=== PATIENT | female | born 1995 | race Caucasian/White ===

== ENCOUNTER 2016-08-28 09:52 | Outpatient (CLI) | payer OTHER ==
--- NOTE | 2016-08-28 15:24 | Nuclear Medicine Report ---
EXAM: GASTRIC EMPTYING STUDY EXAM DATE: 08/28/2016 10:29 AM. CLINICAL HISTORY: NAUSEA. COMPARISON: None. TECHNIQUE: A standard meal was radiolabeled with 1 mCi Tc-99m sulfur colloid according to protocol. F ollowing the p.o. administration of this meal, the patient underwent multiple static images over the abdomen from the anterior and posterior projections, at approximately 0, 1, 2, 3, and 4 hours follow ing the ingestion of the meal. Region of interest analysis was employed, and percent emptied/percent remaining of the meal was calculated using both the geometric mean and decay corrections. FINDINGS: Calculations demonstrate: TIME (hours) Percent remaining. Normal values for percent remaining. 1 hour: 64% (30-90%) 2 hours: 42% (0-60%) 3 hours: 12% (030 percent) 4 hours: 0% (0-10%) IMPRESSION: Normal gastric emptying. [facility] Referring Provider Line: [phone] SITE ID: [id number]
== END 2016-08-28 09:53 | disposition home or self-care (01) ==
LOC: DI 09:52
PROVIDERS: ATTEND Physician Assistant Medical
DX: R11.0 Nausea (principal)
CPT/HCPCS: 78265; A9541

== ENCOUNTER 2016-09-11 09:25 | Outpatient (CLI) | payer OTHER ==
--- NOTE | 2016-09-11 13:24 | XRAY Report ---
ESOPHAGRAM: 09/11/2016 CLINICAL INDICATION: Nausea. FINDINGS: Esophagram was performed in the upright and prone positions. The esophagus is normal in c aliber and contractility. Trace gastroesophageal reflux was visualized during the course of the stud y. There is no evidence of ulceration, mass lesion, or stricturing. The hypopharynx appears unremar kable. A 13 mm barium pill passed through the esophagus and into the stomach. IMPRESSION: NORMAL ESOPHAGRAM. TRACE REFLUX. FLUOROSCOPY TIME: 2 minutes 27 seconds; 19 spot images obtained. JOB #: [id number] EXT JOB #:[id number]
== END 2016-09-11 09:26 | disposition home or self-care (01) ==
LOC: DI 09:25
PROVIDERS: ATTEND Physician Assistant Medical
DX: K21.9 Gastro-esophageal reflux disease without esophagitis (principal)
CPT/HCPCS: 74220

== ENCOUNTER 2016-11-10 15:48 | Outpatient (CLI) | payer MEDICAID, OTHER | END 2016-11-10 15:49 | disposition home or self-care (01) | LOC: LAB.R 15:48 | PROVIDERS: ATTEND Physician Assistant Medical | DX: J02.9 Acute pharyngitis, unspecified (principal) | CPT/HCPCS: 87070 ==

== ENCOUNTER 2017-07-16 14:41 | Outpatient (CLI) | payer MEDICAID ==
--- NOTE | 2017-07-16 18:22 | MRI Report ---
EXAM: MRI BRAIN WITHOUT CONTRAST EXAM DATE: 07/16/2017 03:56 PM. CLINICAL HISTORY: Memory loss. Fall during the latter part of 2017 with possible head trauma. COMPARISON: None. TECHNIQUE: Multiplanar, multisequence T1-weighted and fluid-sensitive MR sequences of the brain were performed. Sequences optimized for routine evaluation. Other: None. IV Contrast: None. FINDINGS: No cerebellar tonsillar ectopia is present. No abnormal diffusion signal or magnetic susceptibility is identified in the brain parenchyma. Ventricles and sulci are within normal limits. No extra-axial fluid collection is present. No abnormal T2 or FLAIR hyperintense signal is identified in the brain parenchyma. Expected flow voids are seen in the major intracranial vessels at the skull base. No abnormal T1 shortening is present in the brain parenchyma. An expected flow void is seen in the superior sagittal sinus and in each transverse sinus. No orbital mass is present. Scattered paranasal sinus mucosal thickening is present. IMPRESSION: 1.Normal brain MRI. [facility] Referring Provider Line: [phone] SITE ID: [id number]
== END 2017-07-16 14:42 | disposition home or self-care (01) ==
LOC: DI 14:41
PROVIDERS: ATTEND Family Medicine
DX: R41.3 Other amnesia (principal); R25.1 Tremor, unspecified
CPT/HCPCS: 70551

== ENCOUNTER 2018-03-27 12:31 | Emergency (ER) | payer MEDICAID ==
[2018-03-27] MEDS ORDERED: CLINDAMYCIN 150 MG CAPSULE PO STA (13:24)
[2018-03-27] MEDS ORDERED: LORazepam 2 MG/ML VIAL IM STA (13:24)
[2018-03-27] MEDS ORDERED: HYDROmorphone 2 MG/ML VIAL IM STA (13:24)
[2018-03-27] MEDS ORDERED: BUFFERED LIDOCAINE 10 ML SYRINGE SUBQ STA (13:24)
--- NOTE | 2018-03-27 13:28 | ED Physician Documentation ---
PD HPI HEENT - Stated complaint Stated Complaint: LOWER LF SIDE FACIAL PX - Chief complaint Chief Complaint: Heent - History obtained from History obtained from: Patient - History of Present Illness Timing - onset: Other (She has a known cavity in the left that needed to be addressed. Her dentist went on vacation. She has had progressive pain and swelling over the last week especially over the last couple of days with on and off subjective fevers.) Review of Systems Constitutional: reports: Fever, Chills Nose: denies: Rhinorrhea / runny nose, Congestion Throat: denies: Sore throat Cardiac: denies: Chest pain / pressure, Palpitations PD PAST MEDICAL HISTORY - Past Medical History Past Medical History: No - Past Surgical History Past Surgical History: Yes HEENT: Myringotomy (tubes) - Present Medications Home Medications: Ambulatory Orders Medication Instructions Recorded Confirmed Hydrocodone/Acetaminophen 1 - 2 each PO Q6H PRN #14 tablet 03/27/18 [Hydrocodon-Acetaminophen 5-325] Polyethylene Glycol 3350 [Miralax] 17 gm PO DAILY 03/27/18 03/27/18 RX: Clindamycin HCl [Clindamycin 300 mg PO Q6H #40 capsule 03/27/18 300MG CAP] diazePAM [Valium] 10 mg PO TID PRN #2 tablet 03/27/18 - Allergies Allergies/Adverse Reactions: Allergies Allergy/AdvReac Type Severity Reaction Status Date / Time No Known Drug Allergies Allergy Verified 03/27/18 12:40 - Social History Does the pt smoke?: No Smoking Status: Never smoker Does the pt drink ETOH?: No Does the pt have substance abuse?: No - Immunizations Immunizations are current?: Yes PD ED PE NORMAL - Vitals Vital signs reviewed: Yes - General General: Alert and oriented X 3, No acute distress, Other (She is quite anxious and actually has difficulty with me performing an intraoral examination on initial Exam due to anxiety) - HEENT HEENT: Other (She obviously has dental abscess relative to the left mandibular premolar with facial swelling. She might have some trismus but again due to anxiety on initial Evaluation) - Neck Neck: Supple, no meningeal sign, No bony TTP - Neuro Neuro: Alert and oriented X 3, Normal speech Results - Vitals Vitals: Vital Signs - 24 hr 03/27/18 03/27/18 12:37 14:19 Temperature 36.8 C Heart Rate 98 95 Respiratory 18 18 Rate Blood Pressure 141/91 H 150/95 H O2 Saturation 98 99 Oxygen O2 Source Room air Procedures - Regional nerve block Nerve block site: Inferior alveolar Right / left: Left Nerve block anesthesia: Lidocaine 1% Nerve block aftercare: Excellent anesthesia PD MEDICAL DECISION MAKING - ED course ED course: This is a 22-year-old woman who has a dental abscess. I cannot tell on initial evaluation if it needs to be incised and drained because she is very anxious. She is administered after discussion IM Ativan and Dilaudid in the hopes that we can perform a better exam and potentially do an I&D if necessary. After the administration of the above medication she was reexamined. She had no trismus. Although there was fullness down on the gumline I really did not feel a fluctuant area to incise and drain. A inferior alveolar block was still done for pain control. Departure - Departure Disposition: 01 Home, Self Care Clinical Impression: Dental abscess Condition: Good Record reviewed to determine appropriate education?: Yes Instructions: ED Abscess Dental Prescriptions: RX: Clindamycin HCl [Clindamycin 300MG CAP] 300 mg PO Q6H #40 capsule diazePAM [Valium] 10 mg PO TID PRN #2 tablet PRN Reason: Anxiety Hydrocodone/Acetaminophen [Hydrocodon-Acetaminophen 5-325] 1 - 2 each PO Q6H PRN #14 tablet PRN Reason: pain Comments: As discussed, it does not seem like he have an abscess that is ready to be cut at this point, but over the next couple of days it may worsen despite the antibiotics. If it does you can take the Valium just prior to arrival for your anxiety so that the physician at that point can examine you more easily and potentially do a procedure if necessary. You still need to follow-up with your dentist as soon as possible, given that your dentist is gone until next month consider finding another dentist to substitute. Do not drink or drive while taking narcotic pain medication. Note that many narcotic pain relievers also contain Tylenol/acetaminophen. Please ensure that your total dose of acetaminophen from all sources does not exceed 3 g (3000 mg) per day. You may get constipated while on this medication. Take a stool softener such as Colace twice a day while you are on it. Also add an [id number]-[id number] laxative such as senna or MiraLAX on any day that you do not have a bowel movement. If you received a narcotic pain medication or sedative while in the emergency department, do not drive for the next 24 hours. Your blood pressure was elevated today on check into the emergency department. This does not mean that you have hypertension, it is a common phenomenon to come to the emergency department and have elevated blood pressure. I recommend that you see your primary care physician within the week to have it rechecked when you are feeling better. Discharge Date/Time: 03/27/18 14:24
[2018-03-27 14:20] VITALS: BP 150/95
== END 2018-03-27 14:24 | disposition home or self-care (01) ==
LOC: ED 12:31
DX: K04.7 Periapical abscess without sinus (principal); K02.9 Dental caries, unspecified; F41.9 Anxiety disorder, unspecified; R03.0 Elevated blood-pressure reading, without diagnosis of hypertension
CPT/HCPCS: 64400; 96372; 99283; A9270; J1170; J2060

== ENCOUNTER 2018-07-20 04:57 | Emergency (ER) | payer MEDICAID ==
--- NOTE | 2018-07-20 05:10 | ED Physician Documentation ---
PD HPI ABD PAIN - Stated complaint Stated Complaint: ABD PX - Chief complaint Chief Complaint: Abd Pain - History obtained from History obtained from: Patient - History of Present Illness Timing - onset: Enter time (23:00) Timing - duration: Hours Timing - details: Abrupt onset, Constant, Waxing and waning Pain level now: 4 Quality: Pain Location: Periumbilical Radiation: Right flank Improved by: Other (nothing) Worsened by: Moving Associated symptoms: Nausea. No: Fever, Vomiting, Diarrhea, Constipation Similar symptoms before: Has not had sx before Recently seen: Not recently seen Review of Systems Constitutional: denies: Fever Cardiac: reports: Reviewed and negative Respiratory: reports: Reviewed and negative GI: reports: Abdominal Pain, Nausea. denies: Vomiting, Constipation, Diarrhea : denies: Dysuria, Frequency, Now EGA PD PAST MEDICAL HISTORY - Past Medical History Past Medical History: Yes Other Past Medical History: PTSD - Past Surgical History Past Surgical History: Yes HEENT: Myringotomy (tubes) - Present Medications Home Medications: Ambulatory Orders Medication Instructions Recorded Confirmed Polyethylene Glycol 3350 [Miralax] 17 gm PO DAILY 03/27/18 03/27/18 diazePAM [Valium] 10 mg PO TID PRN #2 tablet 03/27/18 Ondansetron Odt [Zofran] 4 mg TL Q6H PRN #14 tablet 07/20/18 Tramadol HCl 50 mg PO Q6HR PRN #20 tablet 07/20/18 - Allergies Allergies/Adverse Reactions: Allergies Allergy/AdvReac Type Severity Reaction Status Date / Time No Known Drug Allergies Allergy Verified 03/28/18 10:36 - Social History Does the pt smoke?: No Smoking Status: Never smoker Does the pt drink ETOH?: No Does the pt have substance abuse?: No - Immunizations Immunizations are current?: Yes PD ED PE NORMAL - Vitals Vital signs reviewed: Yes - General General: Alert and oriented X 3, No acute distress, Well developed/nourished - Cardiac Cardiac: RRR, No murmur - Respiratory Respiratory: No respiratory distress, Clear bilaterally - Abdomen Abdomen: Normal bowel sounds, Soft, Non distended, Other (mild epigastric and RUQ tenderness without rebound or guarding) - Back Back: No CVA TTP - Derm Derm: Normal color, Warm and dry, No rash Results - Vitals Vitals: Vital Signs - 24 hr 04/10/19 04/10/19 05:03 08:03 Temperature 36.2 C L Heart Rate 97 78 Respiratory 18 14 Rate Blood Pressure 154/93 H 139/88 H O2 Saturation 98 98 Oxygen O2 Source Room air - Labs Labs: Laboratory Tests 07/20/18 07/20/18 07/20/18 05:00 05:50 05:50 WBC 10.8 RBC 4.29 Hgb 12.6 Hct 37.2 MCV 86.7 MCH 29.3 MCHC 33.8 RDW 13.1 Plt Count 267 MPV 7.6 L Neut # (Auto) 8.2 H Lymph # (Auto) 1.8 [place] # (Auto) 0.6 Eos # (Auto) 0.1 Baso # (Auto) 0.0 Absolute Nucleated RBC 0.00 Nucleated RBC % 0.0 Sodium 135 Potassium 3.8 Chloride 103 Carbon Dioxide 24 Anion Gap 8.0 BUN 10 Creatinine 0.5 Estimated GFR (MDRD) 156 Glucose 107 H Calcium 8.9 Total Bilirubin 0.5 AST 19 ALT 17 Alkaline Phosphatase 60 Total Protein 7.3 Albumin 4.0 Globulin 3.3 Albumin/Globulin Ratio 1.2 Lipase 28 Urine Color STRAW Urine Clarity HAZY Urine pH 7.0 Ur Specific [place] <=1.005 Urine Protein NEGATIVE Urine Glucose (UA) NEGATIVE Urine Ketones NEGATIVE Urine Occult Blood TRACE-LYSE Urine Nitrite NEGATIVE Urine Bilirubin NEGATIVE Urine Urobilinogen 0.2 (NORMAL) Ur Leukocyte Esterase TRACE H Urine RBC None Seen Urine WBC 0-3 Ur Squamous Epith Cells MOD Squamous H Urine Bacteria Rare Ur Microscopic Review INDICATED Urine Culture Comments NOT INDICATED Urine HCG, Qual NEGATIVE - Rads (name of study) RUQ US Radiology: Prelim report reviewed, See rad report PD MEDICAL DECISION MAKING - ED course Complexity details: reviewed results, re-evaluated patient, considered differential, d/w patient Departure - Departure Disposition: 01 Home, Self Care Clinical Impression: Biliary colic Condition: Good Instructions: ED Gallstone W Biliary Colic Follow-Up: Brendon Fontenot MD [Provider Admit Priv/Credential] - Prescriptions: Tramadol HCl 50 mg PO Q6HR PRN #20 tablet PRN Reason: Pain Ondansetron Odt [Zofran] 4 mg TL Q6H PRN #14 tablet PRN Reason: Nausea / Vomiting
[2018-07-20] MEDS ORDERED: KETOROLAC 30 MG/ML VIAL IVP STA (05:29)
[2018-07-20] MEDS ORDERED: ONDANSETRON 4 MG/2 ML VIAL IVP STA (05:30)
[2018-07-20 06:05] LABS: BASOPHILS % (AUTO) 0.4 %; EOSINOPHILS # (AUTO) 0.1 10^3/uL (0.0-0.7); EOSINOPHILS % (AUTO) 0.8 %; HGB - HEMOGLOBIN 12.6 g/dL (12.0-16.0); LYMPHOCYTES # (AUTO) 1.8 10^3/uL (1.5-3.5); LYMPHOCYTES % (AUTO) 16.9 %; MEAN CORPUSCULAR HEMOGLOBIN 29.3 pg (27.0-31.0); MEAN CORPUSCULAR HGB CONC 33.8 g/dL (32.0-36.0); MEAN CORPUSCULAR VOLUME 86.7 fL (81.0-99.0); MEAN PLATELET VOLUME 7.6 fL (7.9-10.8); MONOCYTES # (AUTO) 0.6 10^3/uL (0.0-1.0); MONOCYTES % (AUTO) 5.6 %; NEUTROPHILS # (AUTO) 8.2 10^3/uL (1.5-6.6); NEUTROPHILS % (AUTO) 76.3 %; PLT - PLATELET COUNT 267 10^3/uL (130-450); RED BLOOD COUNT 4.29 10^6/uL (4.20-5.40); RED CELL DISTRIBUTION WIDTH 13.1 % (12.0-15.0); WHITE BLOOD COUNT 10.8 x10^3/uL (4.8-10.8)
[2018-07-20 06:11] LABS: ALBUMIN/GLOBULIN RATIO 1.2 (1.0-2.2); BILIRUBIN,TOTAL 0.5 mg/dL (0.2-1.0); CALCIUM 8.9 mg/dL (8.5-10.3); CREATININE 0.5 mg/dL (0.4-1.0); TOTAL PROTEIN 7.3 g/dL (6.7-8.2)
[2018-07-20 06:12] LABS: BILIRUBIN,URINE NEGATIVE (NEGATIVE); GLUCOSE, URINE (UA) NEGATIVE (NEGATIVE); KETONES,URINE (UA) NEGATIVE (NEGATIVE); LEUKOCYTE ESTERASE, URINE TRACE (NEGATIVE); NITRITE,URINE NEGATIVE (NEGATIVE); OCCULT BLOOD,URINE TRACE-LYSE (NEGATIVE); PROTEIN,URINE NEGATIVE (NEGATIVE); UROBILINOGEN,URINE 0.2 (NORMAL) E.U./dL (NORMAL)
[2018-07-20 06:13] LABS: CLARITY,URINE HAZY (CLEAR)
[2018-07-20 06:14] LABS: HCG UR QUAL NEGATIVE
[2018-07-20 06:22] LABS: BACTERIA,URINE Rare /HPF (None Seen); RBC,URINE None Seen /HPF (0-5); SQUAMOUS EPITHELIAL CELL,UR MOD Squamous (<= Few)
--- NOTE | 2018-07-20 07:56 | Ultrasound Report ---
Reason: RUQ pain Procedure Date: 07/20/2018 Accession Number: [id number] / [id number] Procedure: US - Abdomen Limited CPT Code: FULL RESULT: EXAM: ABDOMEN ULTRASOUND LIMITED, RUQ EXAM DATE: 07/20/2018 07:25 AM. CLINICAL HISTORY: RUQ pain. COMPARISON: None. TECHNIQUE: Real-time scanning was performed with static images obtained. FINDINGS: Liver: Diffusely echogenic hepatic parenchyma. No hepatic lesions. No intrahepatic ductal dilatation. The liver is not enlarged, 16.8 cm. Main portal vein flow: Hepatopetal. Gallbladder: Multiple gallstones are seen throughout the gallbladder and shadowing posteriorly. No gallbladder wall thickening. Per emblem fuser tender, the patient is not tender over the gallbladder. Biliary System: CBD measures 4-5 mm. No intrahepatic or extrahepatic ductal dilatation. Other: Right kidney is normal in contour and echotexture and measures 10.8 cm. No hydronephrosis. IMPRESSION: 1. Fatty liver. 2. Cholelithiasis. No sonographic evidence of cholecystitis. 3. No biliary ductal dilatation. [facility]
[2018-07-20 08:03] VITALS: BP 139/88
== END 2018-07-20 08:30 | disposition home or self-care (01) ==
LOC: ED 04:57
DX: K80.50 Calculus of bile duct without cholangitis or cholecystitis without obstruction (principal)
CPT/HCPCS: 36415; 76705; 80053; 81001; 81003; 81025; 83690; 85025; 87086; 96374; 99283; 99284

== ENCOUNTER 2018-07-23 16:53 | Emergency (ER) | payer MEDICAID ==
[2018-07-23 16:59] VITALS: BP 162/91
--- NOTE | 2018-07-23 17:10 | ED Physician Documentation ---
History of Present Illness - Stated complaint Stated Complaint: FEVER/NAUSEA/FOGGY - Chief complaint Chief Complaint: Fever - History obtained from History obtained from: Patient - History of Present Illness Timing: Other (She was seen here a few nights ago for abdominal pain, diagnosed with gallstones. That is better now but subsequently developed a low-grade fever with T-max of 99. Nothing over 100. She feels kind of foggy and out of it. She denies runny nose, sore throat, current abdominal pain, nausea, acute changes in her bowels, rash, recent travel.) Review of Systems Constitutional: reports: Fever, Fatigue Ears: denies: Ear pain Nose: denies: Rhinorrhea / runny nose, Congestion Throat: denies: Sore throat Respiratory: denies: Cough GI: reports: Diarrhea (Chronic). denies: Abdominal Pain, Nausea, Vomiting PD PAST MEDICAL HISTORY - Past Surgical History Past Surgical History: Yes HEENT: Myringotomy (tubes) - Present Medications Home Medications: Ambulatory Orders Medication Instructions Recorded Confirmed Polyethylene Glycol 3350 [Miralax] 17 gm PO DAILY 03/27/18 07/23/18 Ondansetron Odt [Zofran] 4 mg TL Q6H PRN #14 tablet 07/20/18 07/23/18 Tramadol HCl 50 mg PO Q6HR PRN #20 tablet 07/20/18 07/23/18 Prazosin [Minipress] 1 mg PO QPM 07/23/18 07/23/18 Sulfamethoxazole/Trimethoprim 1 each PO BID #14 tablet 07/23/18 [Sulfamethoxazole-Tmp Ds Tablet] - Allergies Allergies/Adverse Reactions: Allergies Allergy/AdvReac Type Severity Reaction Status Date / Time No Known Drug Allergies Allergy Verified 07/23/18 16:59 - Social History Does the pt smoke?: No Smoking Status: Never smoker Does the pt drink ETOH?: No Does the pt have substance abuse?: No - Immunizations Immunizations are current?: Yes PD ED PE NORMAL - Vitals Vital signs reviewed: Yes - General General: Alert and oriented X 3, No acute distress - HEENT HEENT: PERRL, EOMI, Ears normal, Pharynx benign - Neck Neck: Supple, no meningeal sign, No bony TTP, No adenopathy - Cardiac Cardiac: RRR, No murmur - Respiratory Respiratory: No respiratory distress, Clear bilaterally - Abdomen Abdomen: Non tender - Derm Derm: No rash - Neuro Neuro: Alert and oriented X 3, Normal speech Results - Vitals Vitals: Vital Signs - 24 hr 07/23/18 16:55 Temperature 37.6 C H Heart Rate 85 Respiratory 20 Rate Blood Pressure 162/91 H O2 Saturation 98 Oxygen O2 Source Room air - Labs Labs: Laboratory Tests 07/23/18 07/23/18 07/23/18 17:17 17:25 17:25 WBC 10.9 H RBC 4.56 Hgb 13.2 Hct 39.3 MCV 86.1 MCH 28.9 MCHC 33.6 RDW 13.1 Plt Count 301 MPV 7.9 Neut # (Auto) 7.4 H Lymph # (Auto) 2.7 [place] # (Auto) 0.6 Eos # (Auto) 0.1 Baso # (Auto) 0.0 Absolute Nucleated RBC 0.00 Nucleated RBC % 0.0 Sodium 138 Potassium 4.1 Chloride 104 Carbon Dioxide 24 Anion Gap 10.0 BUN 13 Creatinine 0.5 Estimated GFR (MDRD) 156 Glucose 98 Calcium 9.8 Total Bilirubin 0.4 AST 21 ALT 17 Alkaline Phosphatase 65 Total Protein 7.8 Albumin 4.4 Globulin 3.4 Albumin/Globulin Ratio 1.3 Lipase 26 Urine Color YELLOW Urine Clarity CLEAR Urine pH 8.0 H Ur Specific [place] 1.010 Urine Protein NEGATIVE Urine Glucose (UA) NEGATIVE Urine Ketones NEGATIVE Urine Occult Blood NEGATIVE Urine Nitrite NEGATIVE Urine Bilirubin NEGATIVE Urine Urobilinogen 0.2 (NORMAL) Ur Leukocyte Esterase MODERATE H Urine RBC 0-5 Urine WBC 11-25 H Ur Squamous Epith Cells MANY Squamous H Urine Bacteria Many H Ur Microscopic Review INDICATED Urine Culture Comments NOT INDICATED Urine HCG, Qual NEGATIVE PD MEDICAL DECISION MAKING - ED course ED course: 22-year-old woman presents with low-grade fever and generalized symptoms. She had abdominal pain the other day but that is resolved, she had a soft positive but contaminated UA the other day much more positive but still contaminated today. That is the only source identified. We will culture it and place her on Bactrim. Departure - Departure Disposition: 01 Home, Self Care Clinical Impression: Febrile disorder UTI (urinary tract infection) Qualifiers: Urinary tract infection type: site unspecified Hematuria presence: without hematuria Qualified Code(s): N39.0 - Urinary tract infection, site not specified Condition: Good Record reviewed to determine appropriate education?: Yes Instructions: Pyelonephritis Dc Prescriptions: Sulfamethoxazole/Trimethoprim [Sulfamethoxazole-Tmp Ds Tablet] 1 each PO BID #14 tablet Comments: We will culture your urine, the results should be done in 48-72 hours. If an antibiotic change is necessary we will call you. Return if worse in the meantime, especially if you develop increasing flank pain, fevers, or cannot keep down the medication.
[2018-07-23 17:40] LABS: BASOPHILS % (AUTO) 0.4 %; EOSINOPHILS # (AUTO) 0.1 10^3/uL (0.0-0.7); EOSINOPHILS % (AUTO) 1.1 %; HGB - HEMOGLOBIN 13.2 g/dL (12.0-16.0); LYMPHOCYTES # (AUTO) 2.7 10^3/uL (1.5-3.5); LYMPHOCYTES % (AUTO) 24.9 %; MEAN CORPUSCULAR HEMOGLOBIN 28.9 pg (27.0-31.0); MEAN CORPUSCULAR HGB CONC 33.6 g/dL (32.0-36.0); MEAN CORPUSCULAR VOLUME 86.1 fL (81.0-99.0); MEAN PLATELET VOLUME 7.9 fL (7.9-10.8); MONOCYTES # (AUTO) 0.6 10^3/uL (0.0-1.0); MONOCYTES % (AUTO) 5.5 %; NEUTROPHILS # (AUTO) 7.4 10^3/uL (1.5-6.6); NEUTROPHILS % (AUTO) 68.1 %; PLT - PLATELET COUNT 301 10^3/uL (130-450); RED BLOOD COUNT 4.56 10^6/uL (4.20-5.40); RED CELL DISTRIBUTION WIDTH 13.1 % (12.0-15.0); WHITE BLOOD COUNT 10.9 x10^3/uL (4.8-10.8)
[2018-07-23 17:41] LABS: BILIRUBIN,URINE NEGATIVE (NEGATIVE); GLUCOSE, URINE (UA) NEGATIVE (NEGATIVE); KETONES,URINE (UA) NEGATIVE (NEGATIVE); LEUKOCYTE ESTERASE, URINE MODERATE (NEGATIVE); NITRITE,URINE NEGATIVE (NEGATIVE); OCCULT BLOOD,URINE NEGATIVE (NEGATIVE); PROTEIN,URINE NEGATIVE (NEGATIVE); UROBILINOGEN,URINE 0.2 (NORMAL) E.U./dL (NORMAL)
[2018-07-23 17:47] LABS: CLARITY,URINE CLEAR (CLEAR); HCG UR QUAL NEGATIVE
[2018-07-23 17:48] LABS: BACTERIA,URINE Many /HPF (None Seen); RBC,URINE 0-5 /HPF (0-5); SQUAMOUS EPITHELIAL CELL,UR MANY Squamous (<= Few)
[2018-07-23 17:57] LABS: ALBUMIN 4.4 g/dL (3.2-5.5); ALBUMIN/GLOBULIN RATIO 1.3 (1.0-2.2); BILIRUBIN,TOTAL 0.4 mg/dL (0.2-1.0); CALCIUM 9.8 mg/dL (8.5-10.3); CREATININE 0.5 mg/dL (0.4-1.0); TOTAL PROTEIN 7.8 g/dL (6.7-8.2)
[2018-07-23] MEDS ORDERED: SULFAMETH/TRIMETH DS 800/160 MG TABLET PO STA (18:02)
== END 2018-07-23 18:12 | disposition home or self-care (01) ==
LOC: ED 16:53
DX: R50.9 Fever, unspecified (principal); N39.0 Urinary tract infection, site not specified
CPT/HCPCS: 36415; 80053; 81001; 81025; 83690; 85025; 87077; 87086; 87181; 99283; A9270; 81003

== ENCOUNTER 2018-08-29 06:13 | Day surgery (SDC) | payer MEDICAID ==
[2018-08-29 06:41] LABS: HCG UR QUAL NEGATIVE
[2018-08-29] MEDS ORDERED: LACTATED RINGERS 1,000 ML IV ONE ×2 (07:02→08:55)
[2018-08-29] MEDS ORDERED: ceFAZolin 1 GM VIAL ONE (07:08)
[2018-08-29] MEDS ORDERED: BUPIVACAINE 0.5%-EPI 1:200000 PF 30 ML VIAL ONE (07:08)
--- NOTE | 2018-08-29 07:16 | ANESTHESIA ---
Pre-Anesthesia VS, & Labs - Diagnosis symptomatic cholelithiasis - Procedure Lap [place] Vital Signs: Temp Pulse Resp BP Pulse Ox 37 C 88 20 129/79 98 08/29/18 06:30 08/29/18 06:30 08/29/18 06:30 08/29/18 06:30 08/29/18 06:30 Height 5 ft 1 in Weight (kg) 90.8 kg Body Mass Index 37.8 - NPO >8 hours - Is Patient ?: No Home Medications and Allergies Home Medications: Ambulatory Orders Sertraline HCl 50 mg PO DAILY 08/24/18 Active Medications Cefazolin Sodium 2 gm/ Sodium (Chloride) 100 mls @ 200 mls/hr IV ONCE ONE Stop: 08/29/18 08:29 Prazosin [Minipress] 2 mg PO QPM 07/23/18 Sertraline HCl 50 mg PO DAILY 08/24/18 Allergies/Adverse Reactions: Allergies Allergy/AdvReac Type Severity Reaction Status Date / Time dairy products AdvReac bloating, Uncoded 08/24/18 09:38 constipation enriched flour products AdvReac Nausea Uncoded 08/24/18 09:38 Anes History & Medical History - Anesthetic History Anesthesia Complications: reports: Slow wake-up - Medical History Cardiovascular: reports: None Pulmonary: reports: None Gastrointestinal: reports: Cholelithiasis Urinary: reports: None Neuro: reports: None Musculoskeletal: reports: None Endocrine/Autoimmune: reports: None Blood Disorders: reports: None Skin: reports: Rosacea Smoking Status: Never smoker Psychosocial: reports: Depression, Other (hx of ptsd) - Surgical History General: Colonoscopy Eyes Ears Nose Throat (EENT): Myringotomy (tubes), Other Exam General: Alert, Oriented x3, Cooperative, No acute distress Mouth Openin Fingerbreadth Neck Mobility: Normal Mallampati classification: I Thyromental Distance: 4-6 cm Respiratory: Lungs clear, Normal breath sounds, No respiratory distress, No accessory muscle use Cardiovascular: Regular rate, Normal S1, Normal S2, No murmurs Mental/Cognitive Status: Alert/Oriented X3, Normal for patient Plan Anesthesia Type: General Consent for Procedure(s) Verified and Reviewed: Yes Code Status: Attempt Resuscitation ASA classification: 2-Mild systemic disease Is this case an emergency?: No
[2018-08-29] MEDS ORDERED: PROPOFOL 200 MG/20 ML VIAL IVP ONE (08:00)
[2018-08-29] MEDS ORDERED: MIDAZOLAM 2 MG/2 ML VIAL IVP ONE (08:00)
[2018-08-29] MEDS ORDERED: ePHEDrine 50 MG/ML VIAL IVP ONE (08:00)
[2018-08-29] MEDS ORDERED: ceFAZolin 2 GM in SODIUM CHLORIDE 0.9% 100ML 100 ML IV ONE (08:00)
[2018-08-29] MEDS ORDERED: fentaNYL 250 MCG/5 ML VIAL IVP ONE (08:00)
[2018-08-29] MEDS ORDERED: ACETAMINOPHEN 1,000 MG/100 ML 100 ML IV ONE ×2 (08:00)
[2018-08-29] MEDS ORDERED: NEOSTIGMINE 1 MG/1 ML 10 ML MDV IVP ONE ×2 (08:00)
[2018-08-29] MEDS ORDERED: ROCURONIUM 50 MG/5 ML VIAL IVP ONE (08:00)
[2018-08-29] MEDS ORDERED: LIDOCAINE-MPF 2% 5 ML VIAL IM ONE (08:00)
[2018-08-29] MEDS ORDERED: DEXAMETHASONE 4 MG/ML VIAL IVP ONE (08:00)
[2018-08-29] MEDS ORDERED: GLYCOPYRROLATE 1 MG/5 ML VIAL SUBQ ONE (08:00)
[2018-08-29] MEDS ORDERED: ONDANSETRON 4 MG/2 ML VIAL IVP ONE (08:00)
[2018-08-29] MEDS ORDERED: BUPIVACAINE 0.5%-EPI 1:200000 PF 30 ML VIAL SUBQ ONE ×2 (08:21)
[2018-08-29] MEDS ORDERED: ACETAMINOPHEN 325 MG TABLET PO PRN (09:03)
[2018-08-29] MEDS ORDERED: IBUPROFEN 600 MG TABLET PO PRN (09:03)
[2018-08-29] MEDS ORDERED: oxyCODONE 5 MG TABLET PO PRN (09:03)
[2018-08-29] MEDS ORDERED: ONDANSETRON 4 MG/2 ML VIAL IVP PRN (09:03)
[2018-08-29] MEDS: HYDROmorphone 1 MG/ML CARPUJECT ONE ×4 (09:21→10:00)
[2018-08-29] MEDS ORDERED: ONDANSETRON 4 MG/2 ML VIAL ONE (09:36)
[2018-08-29] MEDS ORDERED: oxyCODONE 5 MG TABLET ONE (12:08)
[2018-08-29 14:05] VITALS: BP 123/77
== END 2018-08-29 06:14 | disposition home or self-care (01) ==
LOC: SDS 06:13
PROVIDERS: ATTEND Internal Medicine Gastroenterology
PROC: 0FT44ZZ Resection of Gallbladder, Percutaneous Endoscopic Approach (ICD-10-PCS; principal; 2018-08-29 07:30)
DX: K80.20 Calculus of gallbladder without cholecystitis without obstruction (principal); K90.49 Malabsorption due to intolerance, not elsewhere classified; E66.9 Obesity, unspecified; R63.4 Abnormal weight loss; K21.9 Gastro-esophageal reflux disease without esophagitis; F32.9 Major depressive disorder, single episode, unspecified; Z83.79 Family history of other diseases of the digestive system; Z86.010 Personal history of colon polyps; Z68.37 Body mass index [BMI] 37.0-37.9, adult; Z79.899 Other long term (current) drug therapy
CPT/HCPCS: 47562; 81025; A9270; J0131; J1170; J3010; J7120

== ENCOUNTER 2018-09-30 09:35 | Outpatient (CLI) | payer MEDICAID ==
[2018-09-30 10:23] LABS: ALBUMIN 4.1 g/dL (3.2-5.5); ALBUMIN/GLOBULIN RATIO 1.3 (1.0-2.2); BILIRUBIN,TOTAL 0.4 mg/dL (0.2-1.0); CALCIUM 9.4 mg/dL (8.5-10.3); CREATININE 0.5 mg/dL (0.4-1.0); TOTAL PROTEIN 7.3 g/dL (6.7-8.2)
[2018-09-30 10:28] LABS: BASOPHILS % (AUTO) 0.3 %; EOSINOPHILS # (AUTO) 0.2 10^3/uL (0.0-0.7); HGB - HEMOGLOBIN 12.7 g/dL (12.0-16.0); LYMPHOCYTES # (AUTO) 2.2 10^3/uL (1.5-3.5); LYMPHOCYTES % (AUTO) 27.4 %; MEAN CORPUSCULAR HEMOGLOBIN 28.2 pg (27.0-31.0); MEAN CORPUSCULAR HGB CONC 31.9 g/dL (32.0-36.0); MEAN CORPUSCULAR VOLUME 88.4 fL (81.0-99.0); MEAN PLATELET VOLUME 9.3 fL (7.9-10.8); MONOCYTES # (AUTO) 0.5 10^3/uL (0.0-1.0); MONOCYTES % (AUTO) 5.9 %; NEUTROPHILS # (AUTO) 5.1 10^3/uL (1.5-6.6); NEUTROPHILS % (AUTO) 63.8 %; PLT - PLATELET COUNT 280 10^3/uL (130-450); RED CELL DISTRIBUTION WIDTH 13.2 % (12.0-15.0)
== END 2018-09-30 09:36 | disposition home or self-care (01) ==
LOC: LAB 09:35
PROVIDERS: ATTEND Registered Nurse
DX: Z79.899 Other long term (current) drug therapy (principal)
CPT/HCPCS: 36415; 80053; 82306; 84443; 85025

== ENCOUNTER 2018-10-15 20:02 | Emergency (ER) | payer MEDICAID ==
--- NOTE | 2018-10-15 20:08 | ED Physician Documentation ---
PD HPI MHE - Stated complaint Stated Complaint: MHE - History obtained from History obtained from: Patient - History of Present Illness Primary symptom: Suicidal ideation Timing - onset: Enter time (16:00), Today Pain level max: 0 Pain level now: 0 Recently seen: Not recently seen - Additional information Additional information: c/o suicidal ideation. Approximately 4 PM today, it became overwhelming and patient no longer felt safe where he is staying due to suicidal thoughts (staying at [facility]). Patient also c/o feeling depersonalization, as if he is not actually present; he likens this to a "simulation in a video game". Patient identifies as a male. He says he was inpatient for mental health reasons in [place] approximately 4 years ago, length of stay was approximately 2 weeks. He denies missing recent doses of his prescription medications and denies taking more than prescribed amount. Review of Systems Cardiac: reports: Reviewed and negative Respiratory: reports: Reviewed and negative GI: reports: Reviewed and negative Psychiatric: reports: Depressed, Suicidal, Other (depersonalization). denies: Homicidal, Hallucinations, Delusions PD PAST MEDICAL HISTORY - Past Medical History Cardiovascular: None Respiratory: None Neuro: None Endocrine/Autoimmune: None GI: Cholelithiasis : None HEENT: Chronic vision loss Psych: Anxiety, Panic attacks, Post traumatic stress disorder Musculoskeletal: None Derm: Rosacea - Past Surgical History Past Surgical History: Yes General: Colonoscopy HEENT: Myringotomy (tubes), Other - Present Medications Home Medications: Ambulatory Orders Medication Instructions Recorded Confirmed Ondansetron Odt [Zofran] 4 mg TL Q6H PRN #14 tablet 07/20/18 08/29/18 Prazosin [Minipress] 2 mg PO QPM 07/23/18 08/29/18 Sertraline HCl 50 mg PO DAILY 08/24/18 08/29/18 Acetaminophen [Tylenol] 650 mg PO Q6H PRN #50 tablet 08/29/18 Ibuprofen [Advil] 600 mg PO Q6H PRN #50 tablet 08/29/18 oxyCODONE [Roxicodone] 5 mg PO Q6H PRN #10 tablet 08/29/18 OLANZapine [Zyprexa] 5 mg PO BID #30 tablet 10/16/18 - Allergies Allergies/Adverse Reactions: Allergies Allergy/AdvReac Type Severity Reaction Status Date / Time dairy products AdvReac bloating, Uncoded 10/15/18 20:14 constipation enriched flour products AdvReac Nausea Uncoded 10/15/18 20:14 - Social History Does the pt smoke?: No Smoking Status: Never smoker Does the pt drink ETOH?: No Does the pt have substance abuse?: No - Immunizations Immunizations are current?: Yes PD ED PE NORMAL - Vitals Vital signs reviewed: Yes - General General: Alert and oriented X 3, No acute distress, Well developed/nourished, Other (detached; brief eye contact when addressed, but otherwise stares vacantly at the caicedo) - HEENT HEENT: PERRL, EOMI - Neck Neck: Supple, no meningeal sign - Cardiac Cardiac: RRR, No murmur - Respiratory Respiratory: No respiratory distress, Clear bilaterally - Abdomen Abdomen: Soft, Non tender - Derm Derm: Normal color, Warm and dry PD ED PE EXPANDED - Psych Psych: Withdrawn Results - Vitals Vitals: Vital Signs - 24 hr 10/16/18 10/16/18 06:08 12:06 Temperature 36.4 C L 36.4 C L Heart Rate 80 82 Respiratory 16 Rate Blood Pressure 134/79 H 139/95 H O2 Saturation 100 96 Oxygen O2 Source Room air - Labs Labs: Laboratory Tests 10/15/18 10/15/18 10/15/18 20:45 20:45 20:45 WBC 14.2 H RBC 4.43 Hgb 12.6 Hct 39.1 MCV 88.3 MCH 28.4 MCHC 32.2 RDW 13.1 Plt Count 289 MPV 9.0 Neut # (Auto) 10.1 H Lymph # (Auto) 3.2 [place] # (Auto) 0.6 Eos # (Auto) 0.2 Baso # (Auto) 0.0 Absolute Nucleated RBC 0.00 Nucleated RBC % 0.0 Sodium 137 Potassium 3.9 Chloride 104 Carbon Dioxide 22 Anion Gap 11.0 BUN 10 Creatinine 0.5 Estimated GFR (MDRD) 154 Glucose 110 H Calcium 9.2 TSH 0.87 Urine Color Urine Clarity Urine pH Ur Specific [place] Urine Protein Urine Glucose (UA) Urine Ketones Urine Occult Blood Urine Nitrite Urine Bilirubin Urine Urobilinogen Ur Leukocyte Esterase Ur Microscopic Review Urine Culture Comments Urine HCG, Qual Salicylates < 6.0 Urine Opiates Screen Ur Oxycodone Screen Urine Methadone Screen Ur Propoxyphene Screen Acetaminophen < 10 L Ur Barbiturates Screen Ur Tricyclics Screen Ur Phencyclidine Scrn Ur Amphetamine Screen U Methamphetamines Scrn U Benzodiazepines Scrn Urine Cocaine Screen U Cannabinoids Screen Ethyl Alcohol < 5.0 10/15/18 10/15/18 20:52 20:52 WBC RBC Hgb Hct MCV MCH MCHC RDW Plt Count MPV Neut # (Auto) Lymph # (Auto) [place] # (Auto) Eos # (Auto) Baso # (Auto) Absolute Nucleated RBC Nucleated RBC % Sodium Potassium Chloride Carbon Dioxide Anion Gap BUN Creatinine Estimated GFR (MDRD) Glucose Calcium TSH Urine Color YELLOW Urine Clarity CLEAR Urine pH 5.5 Ur Specific [place] 1.010 Urine Protein NEGATIVE Urine Glucose (UA) NEGATIVE Urine Ketones NEGATIVE Urine Occult Blood NEGATIVE Urine Nitrite NEGATIVE Urine Bilirubin NEGATIVE Urine Urobilinogen 0.2 (NORMAL) Ur Leukocyte Esterase NEGATIVE Ur Microscopic Review NOT INDICATED Urine Culture Comments NOT INDICATED Urine HCG, Qual NEGATIVE Salicylates Urine Opiates Screen NEGATIVE Ur Oxycodone Screen NEGATIVE Urine Methadone Screen NEGATIVE Ur Propoxyphene Screen NEGATIVE Acetaminophen Ur Barbiturates Screen NEGATIVE Ur Tricyclics Screen NEGATIVE Ur Phencyclidine Scrn NEGATIVE Ur Amphetamine Screen NEGATIVE U Methamphetamines Scrn NEGATIVE U Benzodiazepines Scrn NEGATIVE Urine Cocaine Screen NEGATIVE U Cannabinoids Screen POSITIVE H Ethyl Alcohol PD MEDICAL DECISION MAKING - ED course Complexity details: reviewed old records, reviewed results, re-evaluated patient, considered differential, d/w patient ED course: telepsych consult obtained; unable to contract for safety, recommends inpatient treatment. Patient was agreeable to this and is thus voluntary. SW consult pending in AM and care of patient turned over at end of my shift to Dr. Bonilla pending SW consult. Of note, Dr. Leon (telepsych) recommended continuing the sertraline and prazosin but also adding zyprexa 5mg PO BID Departure - Departure Disposition: 01 Home, Self Care Clinical Impression: Depression, Suicidal ideation Condition: Stable Instructions: ED Stress React, ED Depression Follow-Up: Dulce Maria Armando MD [Primary Care Provider] - Prescriptions: OLANZapine [Zyprexa] 5 mg PO BID #30 tablet Comments: Stay well-hydrated. Continue usual medications. Call the crisis line if you feel you need someone to talk to. The tele-psychiatry consultation did suggest adding olanzapine twice daily to help with anxiety and mood. I wrote a prescription for that that you could start and follow-up with your primary care and psychiatry regarding ongoing medication. Discharge Date/Time: 10/16/18 12:21
[2018-10-15 20:50] LABS: BASOPHILS % (AUTO) 0.2 %; EOSINOPHILS # (AUTO) 0.2 10^3/uL (0.0-0.7); EOSINOPHILS % (AUTO) 1.1 %; HGB - HEMOGLOBIN 12.6 g/dL (12.0-16.0); LYMPHOCYTES # (AUTO) 3.2 10^3/uL (1.5-3.5); LYMPHOCYTES % (AUTO) 22.5 %; MEAN CORPUSCULAR HEMOGLOBIN 28.4 pg (27.0-31.0); MEAN CORPUSCULAR HGB CONC 32.2 g/dL (32.0-36.0); MEAN CORPUSCULAR VOLUME 88.3 fL (81.0-99.0); MONOCYTES # (AUTO) 0.6 10^3/uL (0.0-1.0); MONOCYTES % (AUTO) 4.2 %; NEUTROPHILS # (AUTO) 10.1 10^3/uL (1.5-6.6); NEUTROPHILS % (AUTO) 71.3 %; PLT - PLATELET COUNT 289 10^3/uL (130-450); RED BLOOD COUNT 4.43 10^6/uL (4.20-5.40); RED CELL DISTRIBUTION WIDTH 13.1 % (12.0-15.0); WHITE BLOOD COUNT 14.2 x10^3/uL (4.8-10.8)
[2018-10-15 21:00] LABS: MUDS CUTOFF CONCENTRATIONS CUTOFF CONC BELOW:
[2018-10-15 21:01] LABS: BILIRUBIN,URINE NEGATIVE (NEGATIVE); GLUCOSE, URINE (UA) NEGATIVE (NEGATIVE); KETONES,URINE (UA) NEGATIVE (NEGATIVE); LEUKOCYTE ESTERASE, URINE NEGATIVE (NEGATIVE); NITRITE,URINE NEGATIVE (NEGATIVE); OCCULT BLOOD,URINE NEGATIVE (NEGATIVE); PH,URINE 5.5 PH (5.0-7.5); PROTEIN,URINE NEGATIVE (NEGATIVE); UROBILINOGEN,URINE 0.2 (NORMAL) E.U./dL (NORMAL)
[2018-10-15 21:03] LABS: CLARITY,URINE CLEAR (CLEAR); HCG UR QUAL NEGATIVE
[2018-10-15 21:04] LABS: ACETAMINOPHEN < 10 ug/mL (10-30); BUN - BLOOD UREA NITROGEN 10 mg/dL (6-20); CALCIUM 9.2 mg/dL (8.5-10.3); CARBON DIOXIDE - CO2 22 mmol/L (21-32); CHLORIDE 104 mmol/L (101-111); CREATININE 0.5 mg/dL (0.4-1.0); GFR - MDRD 154 (>89); GLUCOSE 110 mg/dL (70-100); SALICYLATE < 6.0 mg/dL; SODIUM 137 mmol/L (135-145)
[2018-10-15 21:24] LABS: AMPHETAMINE SCREEN,URINE NEGATIVE (NEGATIVE); BENZODIAZEPINES SCREEN, URINE NEGATIVE (NEGATIVE); COCAINE SCREEN URINE NEGATIVE (NEGATIVE); METHADONE SCREEN, URINE NEGATIVE (NEGATIVE); METHAMPHETAMINES SCREEN, URINE NEGATIVE (NEGATIVE); OPIATE SCREEN, URINE NEGATIVE (NEGATIVE); OXYCODONE SCREEN, URINE NEGATIVE (NEGATIVE); PROPOXYPHENE SCREEN, URINE NEGATIVE (NEGATIVE); TRICYCLIC ANTIDEPRESSANT,URINE NEGATIVE (NEGATIVE)
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
[2018-10-16 12:06] VITALS: BP 139/95
--- NOTE | 2018-10-16 17:18 | ED Physician Documentation ---
ED Addendum - Addendum Addendum: 10/16/18 17:15 The patient met with social work and talked with them. Social work also talked with friends etc. The patient was denying any suicidal ideation at this time. She had had vague ideas on it without specific plan per se. The feeling was that the patient was safe for discharge and contracted with for safety. The patient has forward looking thoughts and plans. The patient is discharged accompanied in as contracted with social work for safety. At the suggestion of the tele-psych provider, I did write a prescription for Zyprexa twice daily to add to her usual medications. She should review this with her regular provider as well. I diagnosis depression #2 suicidal ideation, passive #3 anxiety Disposition: The patient is discharged home in stable condition.
== END 2018-10-16 12:21 | disposition home or self-care (01) ==
LOC: ED 20:02
DX: F32.9 Major depressive disorder, single episode, unspecified (principal); R45.851 Suicidal ideations; F41.9 Anxiety disorder, unspecified; Z81.8 Family history of other mental and behavioral disorders
CPT/HCPCS: 36415; 80048; 80306; 80307; 80320; 80329; 81003; 81025; 84443; 85025; 99284; Q3014; 81001; 87086

== ENCOUNTER 2018-11-30 16:16 | Outpatient (CLI) | payer MEDICAID ==
[2018-11-30 16:40] LABS: HGB - HEMOGLOBIN 11.4 g/dL (12.0-16.0); MEAN CORPUSCULAR HEMOGLOBIN 28.4 pg (27.0-31.0); MEAN CORPUSCULAR HGB CONC 32.9 g/dL (32.0-36.0); MEAN CORPUSCULAR VOLUME 86.3 fL (81.0-99.0); RED BLOOD COUNT 4.02 10^6/uL (4.20-5.40); WHITE BLOOD COUNT 11.3 x10^3/uL (4.8-10.8)
[2018-11-30 16:55] LABS: ALBUMIN 3.9 g/dL (3.2-5.5); ALBUMIN/GLOBULIN RATIO 1.2 (1.0-2.2); BILIRUBIN,TOTAL 0.3 mg/dL (0.2-1.0); CREATININE 0.6 mg/dL (0.4-1.0); CRP - C-REACTIVE PROTEIN 1.7 mg/dL (0-1.0); TOTAL PROTEIN 7.2 g/dL (6.7-8.2); URIC ACID 6.2 mg/dL (2.6-7.2)
[2018-11-30 18:09] LABS: RHEUMATOID FACTOR NEGATIVE (Negative)
[2018-12-02 14:52] LABS: ANA SCREEN NEGATIVE (NEGATIVE)
== END 2018-11-30 16:17 | disposition home or self-care (01) ==
LOC: LAB 16:16
PROVIDERS: ATTEND Family Medicine
DX: M25.50 Pain in unspecified joint (principal)
CPT/HCPCS: 36415; 80053; 84550; 85027; 85651; 86038; 86140; 86200; 86430

== ENCOUNTER 2018-12-19 16:49 | Emergency (ER) | payer MEDICAID ==
--- NOTE | 2018-12-19 18:50 | XRAY Report ---
Reason: fall, knee pain Procedure Date: 12/19/2018 Accession Number: [id number] / [id number] Procedure: XR - Knee 4 View LT CPT Code: FULL RESULT: EXAM: LEFT KNEE RADIOGRAPHY. EXAM DATE: 12/19/2018 06:05 PM. CLINICAL HISTORY: Fall, knee pain. Direct impact onto left patella. COMPARISON: None. TECHNIQUE: 4 views. FINDINGS: Bones: Normal. No fractures or bone lesions. Joints: Normal. No effusion. No subluxations. Soft Tissues: Normal. No soft tissue swelling. IMPRESSION: Normal knee radiography. RADIA
--- NOTE | 2018-12-19 18:51 | ED Physician Documentation ---
PD HPI LOWER EXT INJURY - Stated complaint Stated Complaint: L KNEE PX - Chief complaint Chief Complaint: Trauma Ext - History obtained from History obtained from: Patient - History of Present Illness PD HPI LOW EXT INJURY LOCATION: Left, Knee Type of injury: Other (fall while jumping over a puddle yesterday.) Timing - onset: Yesterday Timing - duration: Days (1) Timing - details: Gradual onset Pain level max: 5 Pain level now: 3 Improved by: Rest Worsened by: Moving, Palpating, Other (walking) Associated symptoms: Swelling. No: Weakness, Numbness, Tingling - Additional information Additional information: 23-year-old female fell onto the left knee when she jumped over a puddle yesterday. Worse with movement and better with rest. Review of Systems : denies: Now EGA Musculoskeletal: denies: Neck pain, Back pain Neurologic: denies: Head injury PD PAST MEDICAL HISTORY - Past Medical History Cardiovascular: None Respiratory: None Neuro: None Endocrine/Autoimmune: None GI: Cholelithiasis : None HEENT: Chronic vision loss Psych: Anxiety, Panic attacks, Post traumatic stress disorder Musculoskeletal: None Derm: Rosacea - Past Surgical History Past Surgical History: Yes General: Colonoscopy HEENT: Myringotomy (tubes), Other - Present Medications Home Medications: Ambulatory Orders Medication Instructions Recorded Confirmed Ondansetron Odt [Zofran] 4 mg TL Q6H PRN #14 tablet 07/20/18 12/19/18 Prazosin [Minipress] 2 mg PO QPM 07/23/18 12/19/18 Sertraline HCl 100 mg PO DAILY 08/24/18 12/19/18 Acetaminophen [Tylenol] 650 mg PO Q6H PRN #50 tablet 08/29/18 12/19/18 Ibuprofen [Advil] 600 mg PO Q6H PRN #50 tablet 08/29/18 12/19/18 OLANZapine [Zyprexa] 5 mg PO BID #30 tablet 10/16/18 12/19/18 Meloxicam [Mobic] 7.5 mg PO DAILY 12/19/18 12/19/18 - Allergies Allergies/Adverse Reactions: Allergies Allergy/AdvReac Type Severity Reaction Status Date / Time dairy products AdvReac bloating, Uncoded 12/19/18 17:18 constipation enriched flour products AdvReac Nausea Uncoded 12/19/18 17:18 - Social History Does the pt smoke?: No Smoking Status: Never smoker Does the pt drink ETOH?: No Does the pt have substance abuse?: No - Immunizations Immunizations are current?: Yes - POLST Patient has POLST: No PD ED PE NORMAL - Vitals Vital signs reviewed: Yes - General General: Alert and oriented X 3, No acute distress - Derm Derm: Warm and dry - Extremities Extremities: Other (ACL, PCL, MCL, LCL are intact of the left knee. Mild tenderness over the patella. No swelling. No joint effusion. Full range of motion. Neurovascularly intact.) - Neuro Neuro: Alert and oriented X 3 Results - Vitals Vitals: Oxygen O2 Source Room air - Rads (name of study) Left knee x-ray Radiology: Prelim report reviewed, EMP read contemporaneously, See rad report (Normal) PD MEDICAL DECISION MAKING - ED course Complexity details: reviewed results, considered differential, d/w patient ED course: 23-year-old female with a left knee contusion. Ligaments are intact. No acute findings on x-ray. Ambulating well. We will continue supportive care and follow-up with her doctor. Patient counseled regarding signs and symptoms for which I believe and urgent re-evaluation would be necessary. Patient with good understanding of and agreement to plan and is comfortable going home at this time This document was made in part using voice recognition software. While efforts are made to proofread this document, sound alike and grammatical errors may occur. Departure - Departure Disposition: 01 Home, Self Care Clinical Impression: Contusion of left knee Qualifiers: Encounter type: initial encounter Qualified Code(s): S80.02XA - Contusion of left knee, initial encounter Condition: Good Instructions: ED Contusion Lower Ext Follow-Up: Sumeet Mccauley MD [Primary Care Provider] - Comments: You can use Motrin or Tylenol as needed for pain. This should improve over the next few days. Your x-ray does not show any acute abnormalities tonight. Discharge Date/Time: 12/19/18 19:13
[2018-12-19 19:17] VITALS: BP 137/80
== END 2018-12-19 19:13 | disposition home or self-care (01) ==
LOC: ED 16:49
DX: S80.02XA Contusion of left knee, initial encounter (principal); W01.0XXA Fall on same level from slipping, tripping and stumbling without subsequent striking against object, initial encounter; Y93.39 Activity, other involving climbing, rappelling and jumping off
CPT/HCPCS: 99282; 99283

== ENCOUNTER 2019-04-05 21:50 | Emergency (ER) | payer MEDICAID ==
[2019-04-05 21:59] VITALS: BP 146/75
--- NOTE | 2019-04-05 22:03 | ED Physician Documentation ---
PD HPI MHE - Stated complaint Stated Complaint: SI - Chief complaint Chief Complaint: MHE - History obtained from History obtained from: Patient - History of Present Illness Primary symptom: Self harm - cut, Depression Timing - onset: Today Pain level now: 0 - Additional information Additional information: presents with self-inflicted superficial abrasions to left wrist. patient identifies as male. he says he did this today due to feeling depressed. he feels that the holidays have made him feel depressed with family issues. he presents with his twin sister. patient is a resident at [facility]. Review of Systems Cardiac: reports: Reviewed and negative Respiratory: reports: Reviewed and negative Psychiatric: reports: Depressed, Suicidal (thougts of self-harm but no specific plan and he is uncertain as to strength of intent). denies: Hallucinations, Delusions PD PAST MEDICAL HISTORY - Past Medical History Cardiovascular: None Respiratory: None Neuro: None Endocrine/Autoimmune: None GI: Cholelithiasis : None HEENT: Chronic vision loss Psych: Anxiety, Panic attacks, Post traumatic stress disorder Musculoskeletal: None Derm: Rosacea - Past Surgical History Past Surgical History: Yes General: Colonoscopy HEENT: Myringotomy (tubes), Other - Present Medications Home Medications: Ambulatory Orders Medication Instructions Recorded Confirmed Ondansetron Odt [Zofran] 4 mg TL Q6H PRN #14 tablet 07/20/18 12/19/18 Prazosin [Minipress] 2 mg PO QPM 07/23/18 12/19/18 Sertraline HCl 100 mg PO DAILY 08/24/18 12/19/18 Acetaminophen [Tylenol] 650 mg PO Q6H PRN #50 tablet 08/29/18 12/19/18 Ibuprofen [Advil] 600 mg PO Q6H PRN #50 tablet 08/29/18 12/19/18 OLANZapine [Zyprexa] 5 mg PO BID #30 tablet 10/16/18 12/19/18 Meloxicam [Mobic] 7.5 mg PO DAILY 12/19/18 12/19/18 - Allergies Allergies/Adverse Reactions: Allergies Allergy/AdvReac Type Severity Reaction Status Date / Time dairy products AdvReac bloating, Uncoded 04/07/19 16:03 constipation enriched flour products AdvReac Nausea Uncoded 04/07/19 16:03 - Social History Does the pt smoke?: No Smoking Status: Never smoker Does the pt drink ETOH?: No Does the pt have substance abuse?: No - Immunizations Immunizations are current?: Yes - POLST Patient has POLST: No PD ED PE NORMAL - Vitals Vital signs reviewed: Yes - General General: Alert and oriented X 3, No acute distress, Well developed/nourished - HEENT HEENT: PERRL, EOMI - Cardiac Cardiac: RRR, No murmur - Respiratory Respiratory: No respiratory distress, Clear bilaterally - Neuro Neuro: Alert and oriented X 3 - Psych Psych: Normal mood, Normal affect PD ED PE EXPANDED - Extremities Extremities: Other (multiple superficial linear lacerations to left wrist dorsal surface) Results - Vitals Vitals: Oxygen O2 Source Room air - Labs Labs: Laboratory Tests 04/05/19 04/05/19 04/05/19 22:06 22:06 22:09 WBC 11.8 H RBC 5.47 H Hgb 15.2 Hct 46.4 MCV 84.8 MCH 27.8 MCHC 32.8 RDW 13.5 Plt Count 274 MPV 9.5 Neut # (Auto) 8.1 H Lymph # (Auto) 2.8 [place] # (Auto) 0.7 Eos # (Auto) 0.1 Baso # (Auto) 0.0 Absolute Nucleated RBC 0.00 Nucleated RBC % 0.0 Sodium Potassium Chloride Carbon Dioxide Anion Gap BUN Creatinine Estimated GFR (MDRD) Glucose Calcium Ur Specific [place] 1.025 Urine HCG, Qual NEGATIVE Salicylates Urine Opiates Screen NEGATIVE Ur Oxycodone Screen NEGATIVE Urine Methadone Screen NEGATIVE Ur Propoxyphene Screen NEGATIVE Acetaminophen Ur Barbiturates Screen NEGATIVE Ur Tricyclics Screen NEGATIVE Ur Phencyclidine Scrn NEGATIVE Ur Amphetamine Screen NEGATIVE U Methamphetamines Scrn NEGATIVE U Benzodiazepines Scrn NEGATIVE Urine Cocaine Screen NEGATIVE U Cannabinoids Screen POSITIVE H Ethyl Alcohol 04/05/19 04/05/19 22:09 22:09 WBC RBC Hgb Hct MCV MCH MCHC RDW Plt Count MPV Neut # (Auto) Lymph # (Auto) [place] # (Auto) Eos # (Auto) Baso # (Auto) Absolute Nucleated RBC Nucleated RBC % Sodium 138 Potassium 4.3 Chloride 101 Carbon Dioxide 26 Anion Gap 11.0 BUN 16 Creatinine 0.9 Estimated GFR (MDRD) 78 L Glucose 116 H Calcium 10.1 Ur Specific [place] Urine HCG, Qual Salicylates < 6.0 Urine Opiates Screen Ur Oxycodone Screen Urine Methadone Screen Ur Propoxyphene Screen Acetaminophen < 10 L Ur Barbiturates Screen Ur Tricyclics Screen Ur Phencyclidine Scrn Ur Amphetamine Screen U Methamphetamines Scrn U Benzodiazepines Scrn Urine Cocaine Screen U Cannabinoids Screen Ethyl Alcohol < 5.0 PD MEDICAL DECISION MAKING - ED course Complexity details: reviewed old records, reviewed results, re-evaluated patient, considered differential, d/w patient, d/w family ED course: patient endorses feeling depressed and having suicidal thoughts without specific plan and uncertain as to intent. patient initially says he would not feel safe being discharged and thus tests ordered for medical clearance for telepsych consult, which patient is interested in pursuing. He was medically cleared and telepsych consult requested. unfortunately, I was then informed that telepsych services were down until approximately noon tomorrow. I discussed this with patient and offered ED overnight stay for observation until SW consult in AM. He declines this and prefers to be discharged. He is here voluntarily and can contract for safety. He says he feels safe going back to [facility] and understands that he can return to ED at any time he wishes to be reevaluated, and to return or call 911 if he feels unsafe regarding self-harm. patient is polite and pleasant during ED stay and conversation with patient is clear and productive. Departure - Departure Disposition: 01 Home, Self Care Clinical Impression: Depressive disorder Condition: Good Instructions: ED Depression Follow-Up: Juan Juarez MD [Primary Care Provider] - Discharge Date/Time: 04/06/19 02:25
[2019-04-05 22:14] LABS: BASOPHILS % (AUTO) 0.3 %; EOSINOPHILS # (AUTO) 0.1 10^3/uL (0.0-0.7); EOSINOPHILS % (AUTO) 1.1 %; HGB - HEMOGLOBIN 15.2 g/dL (12.0-16.0); LYMPHOCYTES # (AUTO) 2.8 10^3/uL (1.5-3.5); LYMPHOCYTES % (AUTO) 23.6 %; MEAN CORPUSCULAR HEMOGLOBIN 27.8 pg (27.0-31.0); MEAN CORPUSCULAR HGB CONC 32.8 g/dL (32.0-36.0); MEAN CORPUSCULAR VOLUME 84.8 fL (81.0-99.0); MEAN PLATELET VOLUME 9.5 fL (7.9-10.8); MONOCYTES # (AUTO) 0.7 10^3/uL (0.0-1.0); MONOCYTES % (AUTO) 5.5 %; NEUTROPHILS # (AUTO) 8.1 10^3/uL (1.5-6.6); NEUTROPHILS % (AUTO) 68.8 %; PLT - PLATELET COUNT 274 10^3/uL (130-450); RED BLOOD COUNT 5.47 10^6/uL (4.20-5.40); RED CELL DISTRIBUTION WIDTH 13.5 % (12.0-15.0); WHITE BLOOD COUNT 11.8 x10^3/uL (4.8-10.8)
[2019-04-05 22:24] LABS: BUN - BLOOD UREA NITROGEN 16 mg/dL (6-20); CALCIUM 10.1 mg/dL (8.5-10.3); CARBON DIOXIDE - CO2 26 mmol/L (21-32); CHLORIDE 101 mmol/L (101-111); CREATININE 0.9 mg/dL (0.4-1.0); GFR - MDRD 78 (>89); GLUCOSE 116 mg/dL (70-100); SODIUM 138 mmol/L (135-145)
[2019-04-05 22:36] LABS: MUDS CUTOFF CONCENTRATIONS CUTOFF CONC BELOW:
[2019-04-05 22:36] LABS: ACETAMINOPHEN < 10 ug/mL (10-30); SALICYLATE < 6.0 mg/dL
[2019-04-05 22:41] LABS: HCG UR QUAL NEGATIVE
[2019-04-05 22:48] LABS: AMPHETAMINE SCREEN,URINE NEGATIVE (NEGATIVE); BENZODIAZEPINES SCREEN, URINE NEGATIVE (NEGATIVE); COCAINE SCREEN URINE NEGATIVE (NEGATIVE); METHADONE SCREEN, URINE NEGATIVE (NEGATIVE); METHAMPHETAMINES SCREEN, URINE NEGATIVE (NEGATIVE); OPIATE SCREEN, URINE NEGATIVE (NEGATIVE); OXYCODONE SCREEN, URINE NEGATIVE (NEGATIVE); PROPOXYPHENE SCREEN, URINE NEGATIVE (NEGATIVE); TRICYCLIC ANTIDEPRESSANT,URINE NEGATIVE (NEGATIVE)
== END 2019-04-06 02:25 | disposition home or self-care (01) ==
LOC: ED 21:50
DX: F32.9 Major depressive disorder, single episode, unspecified (principal); R45.851 Suicidal ideations; S61.512A Laceration without foreign body of left wrist, initial encounter; X78.9XXA Intentional self-harm by unspecified sharp object, initial encounter
CPT/HCPCS: 36415; 80048; 80306; 80307; 80320; 80329; 81025; 85025; 99283; 99284

== ENCOUNTER 2019-04-07 15:53 | Emergency (ER) | payer MEDICAID ==
[2019-04-07 16:34] LABS: BASOPHILS % (AUTO) 0.5 %; EOSINOPHILS # (AUTO) 0.1 10^3/uL (0.0-0.7); EOSINOPHILS % (AUTO) 1.6 %; HGB - HEMOGLOBIN 14.2 g/dL (12.0-16.0); LYMPHOCYTES # (AUTO) 2.5 10^3/uL (1.5-3.5); MEAN CORPUSCULAR HEMOGLOBIN 27.9 pg (27.0-31.0); MEAN CORPUSCULAR HGB CONC 32.7 g/dL (32.0-36.0); MEAN CORPUSCULAR VOLUME 85.3 fL (81.0-99.0); MEAN PLATELET VOLUME 9.4 fL (7.9-10.8); MONOCYTES # (AUTO) 0.7 10^3/uL (0.0-1.0); MONOCYTES % (AUTO) 7.6 %; NEUTROPHILS # (AUTO) 5.3 10^3/uL (1.5-6.6); NEUTROPHILS % (AUTO) 60.8 %; PLT - PLATELET COUNT 261 10^3/uL (130-450); RED BLOOD COUNT 5.09 10^6/uL (4.20-5.40); RED CELL DISTRIBUTION WIDTH 13.3 % (12.0-15.0); WHITE BLOOD COUNT 8.7 x10^3/uL (4.8-10.8)
--- NOTE | 2019-04-07 16:34 | ED Physician Documentation ---
PD HPI MHE - Stated complaint Stated Complaint: SI - Chief complaint Chief Complaint: MHE - History obtained from History obtained from: Patient - History of Present Illness Primary symptom: Suicidal ideation Timing - onset: Chronic Pain level max: 0 Pain level now: 0 Similar symptoms before: Diagnosis (depression) Recently seen: Not recently seen - Additional information Additional information: 23-year-old female who identifies as a male, goes by Mychal. He states that he has had increasing suicidal thoughts over the past several days. Has attempted suicide x3 in the past. Has not been hospitalized for several years. Is followed at [facility]. No hallucinations. Uses CBD oil recreationally. No suicide attempt today. Would like to explore voluntary hospitalization. Review of Systems Ten Systems: 10 systems reviewed and negative Constitutional: denies: Fever, Chills GI: denies: Vomiting, Diarrhea Skin: denies: Rash Musculoskeletal: denies: Neck pain, Back pain Neurologic: denies: Headache PD PAST MEDICAL HISTORY - Past Medical History Cardiovascular: None Respiratory: None Neuro: None Endocrine/Autoimmune: None GI: Cholelithiasis : None HEENT: Chronic vision loss Psych: Anxiety, Panic attacks, Post traumatic stress disorder Musculoskeletal: None Derm: Rosacea - Past Surgical History Past Surgical History: Yes General: Colonoscopy HEENT: Myringotomy (tubes), Other - Present Medications Home Medications: Ambulatory Orders Medication Instructions Recorded Confirmed Ondansetron Odt [Zofran] 4 mg TL Q6H PRN #14 tablet 07/20/18 12/19/18 Prazosin [Minipress] 2 mg PO QPM 07/23/18 12/19/18 Sertraline HCl 100 mg PO DAILY 08/24/18 12/19/18 Acetaminophen [Tylenol] 650 mg PO Q6H PRN #50 tablet 08/29/18 12/19/18 Ibuprofen [Advil] 600 mg PO Q6H PRN #50 tablet 08/29/18 12/19/18 OLANZapine [Zyprexa] 5 mg PO BID #30 tablet 10/16/18 12/19/18 Meloxicam [Mobic] 7.5 mg PO DAILY 12/19/18 12/19/18 - Allergies Allergies/Adverse Reactions: Allergies Allergy/AdvReac Type Severity Reaction Status Date / Time dairy products AdvReac bloating, Uncoded 04/07/19 16:03 constipation enriched flour products AdvReac Nausea Uncoded 04/07/19 16:03 - Social History Does the pt smoke?: No Smoking Status: Never smoker Does the pt drink ETOH?: No Does the pt have substance abuse?: No - Immunizations Immunizations are current?: Yes - POLST Patient has POLST: No PD ED PE NORMAL - Vitals Vital signs reviewed: Yes - General General: Alert and oriented X 3, No acute distress, Well developed/nourished - HEENT HEENT: PERRL, Moist mucous membranes - Neck Neck: Supple, no meningeal sign - Cardiac Cardiac: RRR, Strong equal pulses - Respiratory Respiratory: No respiratory distress, Clear bilaterally - Abdomen Abdomen: Soft, Non tender, Non distended - Derm Derm: Warm and dry, No rash - Extremities Extremities: No edema - Neuro Neuro: Alert and oriented X 3, 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09 Hgb 14.2 Hct 43.4 MCV 85.3 MCH 27.9 MCHC 32.7 RDW 13.3 Plt Count 261 MPV 9.4 Neut # (Auto) 5.3 Lymph # (Auto) 2.5 [place] # (Auto) 0.7 Eos # (Auto) 0.1 Baso # (Auto) 0.0 Absolute Nucleated RBC 0.00 Nucleated RBC % 0.0 Sodium 141 Potassium 3.8 Chloride 106 Carbon Dioxide 25 Anion Gap 10.0 BUN 14 Creatinine 0.6 Estimated GFR (MDRD) 125 Glucose 120 H Calcium 9.0 Total Bilirubin 0.5 AST 44 H ALT 38 Alkaline Phosphatase 60 Total Protein 7.3 Albumin 4.2 Globulin 3.1 Albumin/Globulin Ratio 1.4 Lipase 26 TSH 0.81 Urine Color Urine Clarity Urine pH Ur Specific [place] Urine Protein Urine Glucose (UA) Urine Ketones Urine Occult Blood Urine Nitrite Urine Bilirubin Urine Urobilinogen Ur Leukocyte Esterase Ur Microscopic Review Urine Culture Comments Urine HCG, Qual Salicylates < 6.0 Urine Opiates Screen Ur Oxycodone Screen Urine Methadone Screen Ur Propoxyphene Screen Acetaminophen < 10 L Ur Barbiturates Screen Ur Tricyclics Screen Ur Phencyclidine Scrn Ur Amphetamine Screen U Methamphetamines Scrn U Benzodiazepines Scrn Urine Cocaine Screen U Cannabinoids Screen Ethyl Alcohol < 5.0 04/07/19 04/07/19 17:57 17:57 WBC RBC Hgb Hct MCV MCH MCHC RDW Plt Count MPV Neut # (Auto) Lymph # (Auto) [place] # (Auto) Eos # (Auto) Baso # (Auto) Absolute Nucleated RBC Nucleated RBC % Sodium Potassium Chloride Carbon Dioxide Anion Gap BUN Creatinine Estimated GFR (MDRD) Glucose Calcium Total Bilirubin AST ALT Alkaline Phosphatase Total Protein Albumin Globulin Albumin/Globulin Ratio Lipase TSH Urine Color YELLOW Urine Clarity CLEAR Urine pH 5.5 Ur Specific [place] 1.025 Urine Protein NEGATIVE Urine Glucose (UA) NEGATIVE Urine Ketones TRACE Urine Occult Blood NEGATIVE Urine Nitrite NEGATIVE Urine Bilirubin NEGATIVE Urine Urobilinogen 0.2 (NORMAL) Ur Leukocyte Esterase NEGATIVE Ur Microscopic Review NOT INDICATED Urine Culture Comments NOT INDICATED Urine HCG, Qual NEGATIVE Salicylates Urine Opiates Screen NEGATIVE Ur Oxycodone Screen NEGATIVE Urine Methadone Screen NEGATIVE Ur Propoxyphene Screen NEGATIVE Acetaminophen Ur Barbiturates Screen NEGATIVE Ur Tricyclics Screen NEGATIVE Ur Phencyclidine Scrn NEGATIVE Ur Amphetamine Screen NEGATIVE U Methamphetamines Scrn NEGATIVE U Benzodiazepines Scrn NEGATIVE Urine Cocaine Screen NEGATIVE U Cannabinoids Screen POSITIVE H Ethyl Alcohol PD MEDICAL DECISION MAKING - ED course Complexity details: reviewed results, re-evaluated patient, considered differential, d/w patient, d/w risk management consultant ED course: Patient is medically clear for psychiatric care. Social work was consulted and there is a bed available at [facility]. COBRA forms completed. Patient will be transferred for further care. Patient accepted by Dr. Trevizo This document was made in part using voice recognition software. While efforts are made to proofread this document, sound alike and grammatical errors may occur. Departure - Departure Disposition: 65 Psych Hosp/Unit DC/Xfer Clinical Impression: Suicidal ideation Condition: Stable
[2019-04-07 16:51] LABS: ACETAMINOPHEN < 10 ug/mL (10-30); ALBUMIN 4.2 g/dL (3.2-5.5); ALBUMIN/GLOBULIN RATIO 1.4 (1.0-2.2); ALKALINE PHOSPHATASE 60 IU/L (42-121); ALT ALANINE AMINOTRANSFERASE 38 IU/L (10-60); AST ASPARTATE AMINOTRANSFERASE 44 IU/L (10-42); BILIRUBIN,TOTAL 0.5 mg/dL (0.2-1.0); BUN - BLOOD UREA NITROGEN 14 mg/dL (6-20); CARBON DIOXIDE - CO2 25 mmol/L (21-32); CHLORIDE 106 mmol/L (101-111); CREATININE 0.6 mg/dL (0.4-1.0); GFR - MDRD 125 (>89); GLUCOSE 120 mg/dL (70-100); LIPASE 26 U/L (22-51); SALICYLATE < 6.0 mg/dL; SODIUM 141 mmol/L (135-145); TOTAL PROTEIN 7.3 g/dL (6.7-8.2)
[2019-04-07 17:59] LABS: MUDS CUTOFF CONCENTRATIONS CUTOFF CONC BELOW:
[2019-04-07 18:03] LABS: BILIRUBIN,URINE NEGATIVE (NEGATIVE); GLUCOSE, URINE (UA) NEGATIVE (NEGATIVE); KETONES,URINE (UA) TRACE mg/dL (NEGATIVE); LEUKOCYTE ESTERASE, URINE NEGATIVE (NEGATIVE); NITRITE,URINE NEGATIVE (NEGATIVE); OCCULT BLOOD,URINE NEGATIVE (NEGATIVE); PH,URINE 5.5 PH (5.0-7.5); PROTEIN,URINE NEGATIVE (NEGATIVE); UROBILINOGEN,URINE 0.2 (NORMAL) E.U./dL (NORMAL)
[2019-04-07 18:04] LABS: CLARITY,URINE CLEAR (CLEAR); HCG UR QUAL NEGATIVE
[2019-04-07 18:12] LABS: AMPHETAMINE SCREEN,URINE NEGATIVE (NEGATIVE); BENZODIAZEPINES SCREEN, URINE NEGATIVE (NEGATIVE); COCAINE SCREEN URINE NEGATIVE (NEGATIVE); METHADONE SCREEN, URINE NEGATIVE (NEGATIVE); METHAMPHETAMINES SCREEN, URINE NEGATIVE (NEGATIVE); OPIATE SCREEN, URINE NEGATIVE (NEGATIVE); OXYCODONE SCREEN, URINE NEGATIVE (NEGATIVE); PROPOXYPHENE SCREEN, URINE NEGATIVE (NEGATIVE); TRICYCLIC ANTIDEPRESSANT,URINE NEGATIVE (NEGATIVE)
[2019-04-08 04:52] VITALS: BP 142/80
== END 2019-04-08 05:20 ==
LOC: ED 15:53
DX: R45.851 Suicidal ideations (principal)
CPT/HCPCS: 36415; 80053; 80306; 80307; 80320; 80329; 81001; 81003; 81025; 83690; 84443; 85025; 87086; 99284; 99285

== ENCOUNTER 2019-04-17 23:33 | Outpatient (CLI) | payer MEDICAID | END 2019-04-17 23:34 | disposition critical access hospital (66) | LOC: EMS 23:33 | PROVIDERS: ATTEND Surgery | DX: R06.02 Shortness of breath (principal); R00.0 Tachycardia, unspecified; R25.3 Fasciculation; R53.1 Weakness | CPT/HCPCS: A0425; A0429; A0999 ==

== ENCOUNTER 2019-04-17 23:38 | Emergency (ER) | payer MEDICAID ==
[2019-04-17] MEDS ORDERED: ADENOSINE 6 MG/2 ML VIAL IVP STA ×2 (23:50→23:59)
--- NOTE | 2019-04-17 23:52 | ED Physician Documentation ---
History of Present Illness - Stated complaint Stated Complaint: POSS FACIAL DROOP/ODD FEELING S/P SHOT - Chief complaint Chief Complaint: Neuro - History obtained from History obtained from: Patient, Family - History of Present Illness Timing: Enter time (2129), Today - Additonal information Additional information: 23-year-old female transitioning to a male over the past 3 and half months has been taking testosterone injections every 2 weeks. He prepared the injection today through a 27-gauge needle and injected it into his thigh concerned about t he possibility of air injection. Shortly after the injection the patient began to feel odd with a rapid heart rate and he eventually developed numbness around his lips and fingertips. He has a right facial droop as well. He does admit to ingestion of a drink containing THC after the injection. He has a history of panic attack and anxiety as well as PTSD. 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 : None HEENT: Chronic vision loss Psych: Anxiety, Panic attacks, Post traumatic stress disorder Musculoskeletal: None Derm: Rosacea - Past Surgical History Past Surgical History: Yes General: Colonoscopy HEENT: Myringotomy (tubes), Other - Present Medications Home Medications: Ambulatory Orders Medication Instructions Recorded Confirmed Ondansetron Odt [Zofran] 4 mg TL Q6H PRN #14 tablet 07/20/18 12/19/18 Prazosin [Minipress] 2 mg PO QPM 07/23/18 12/19/18 Sertraline HCl 100 mg PO DAILY 08/24/18 12/19/18 Acetaminophen [Tylenol] 650 mg PO Q6H PRN #50 tablet 08/29/18 12/19/18 Ibuprofen [Advil] 600 mg PO Q6H PRN #50 tablet 08/29/18 12/19/18 OLANZapine [Zyprexa] 5 mg PO BID #30 tablet 10/16/18 12/19/18 Meloxicam [Mobic] 7.5 mg PO DAILY 12/19/18 12/19/18 Sulfamethoxazole/Trimethoprim 1 each PO BID #10 tablet 04/18/19 [Sulfamethoxazole-Tmp Ds Tablet] Testosterone Cypionate 200 mg SQ 04/18/19 - Allergies Allergies/Adverse Reactions: Allergies Allergy/AdvReac Type Severity Reaction Status Date / Time caterpillars Allergy Unknown Uncoded 04/13/19 08:49 dairy products AdvReac bloating, Uncoded 04/07/19 16:03 constipation enriched flour products AdvReac Nausea Uncoded 04/07/19 16:03 - Social History Does the pt smoke?: No Smoking Status: Never smoker Does the pt drink ETOH?: No Does the pt have substance abuse?: No - Immunizations Immunizations are current?: Yes - POLST Patient has POLST: No PD ED PE NORMAL - Vitals Vital signs reviewed: Yes (marked tachy and hypertensive ) - General General: Alert and oriented X 3, Well developed/nourished, Other (The patient is hyperventilating and appears anxious ) - HEENT HEENT: Atraumatic, PERRL, EOMI, Other (dry mucous membranes ) - Neck Neck: Supple, no meningeal sign, No bony TTP - Cardiac Cardiac: No murmur, Other (tachy to 160 and regular) - Respiratory Respiratory: No respiratory distress, Clear bilaterally - Abdomen Abdomen: Soft, Non tender - Back Back: No CVA TTP, No spinal TTP - Derm Derm: Normal color, Warm and dry, No rash - Extremities Extremities: No deformity, No edema, No calf tenderness / cord - Neuro Neuro: Alert and oriented X 3 Eye Opening: Spontaneous Motor: Obeys Commands Verbal: Oriented GCS Score: 15 - Psych Psych: Normal mood, Normal affect Results - Vitals Vitals: Vital Signs - 24 hr 04/17/19 04/18/19 04/18/19 23:41 00:20 01:39 Temperature 36.9 C Heart Rate 161 H 152 H 128 H Respiratory 18 20 19 Rate Blood Pressure 153/100 H 140/68 H O2 Saturation 100 97 96 04/18/19 04/18/19 04/18/19 02:25 02:46 03:49 Temperature Heart Rate 124 H 115 H 103 H Respiratory 22 22 23 Rate Blood Pressure 117/64 O2 Saturation 94 92 04/18/19 04:06 Temperature Heart Rate 105 H Respiratory 21 Rate Blood Pressure 121/64 O2 Saturation Oxygen O2 Source Room air - EKG (time done) 2340 Rate: Rate (enter#) (161) Rhythm: Sinus tachycardia, LAE Other comments: Other comments (RSR' in V1 consistent with RVH or right VCD) Compare to prior EKG: Old EKG unavailable Computer interpretation: Agree with computer - Labs Labs: Laboratory Tests 04/18/19 04/18/19 04/18/19 00:26 00:26 00:26 WBC 12.0 H RBC 4.84 Hgb 13.7 Hct 40.9 MCV 84.5 MCH 28.3 MCHC 33.5 RDW 13.4 Plt Count 238 MPV 9.8 Neut # (Auto) 8.6 H Lymph # (Auto) 2.6 [place] # (Auto) 0.6 Eos # (Auto) 0.1 Baso # (Auto) 0.0 Absolute Nucleated RBC 0.00 Nucleated RBC % 0.0 Sodium 136 Potassium 3.6 Chloride 103 Carbon Dioxide 22 Anion Gap 11.0 BUN 16 Creatinine 0.9 Estimated GFR (MDRD) 78 L Glucose 146 H Calcium 9.3 Total Bilirubin 0.2 AST 26 ALT 25 Alkaline Phosphatase 52 Troponin I High Sens Total Protein 7.6 Albumin 4.4 Globulin 3.2 Albumin/Globulin Ratio 1.4 Lipase 23 TSH 1.37 Urine Color Urine Clarity Urine pH Ur Specific [place] Urine Protein Urine Glucose (UA) Urine Ketones Urine Occult Blood Urine Nitrite Urine Bilirubin Urine Urobilinogen Ur Leukocyte Esterase Urine RBC Urine WBC Ur Squamous Epith Cells Urine Bacteria Ur Microscopic Review Urine Culture Comments Urine HCG, Qual Salicylates < 6.0 Urine Opiates Screen Ur Oxycodone Screen Urine Methadone Screen Ur Propoxyphene Screen Acetaminophen < 10 L Ur Barbiturates Screen Ur Tricyclics Screen Ur Phencyclidine Scrn Ur Amphetamine Screen U Methamphetamines Scrn U Benzodiazepines Scrn Urine Cocaine Screen U Cannabinoids Screen Ethyl Alcohol < 5.0 04/18/19 04/18/19 04/18/19 00:26 00:43 00:43 WBC RBC Hgb Hct MCV MCH MCHC RDW Plt Count MPV Neut # (Auto) Lymph # (Auto) [place] # (Auto) Eos # (Auto) Baso # (Auto) Absolute Nucleated RBC Nucleated RBC % Sodium Potassium Chloride Carbon Dioxide Anion Gap BUN Creatinine Estimated GFR (MDRD) Glucose Calcium Total Bilirubin AST ALT Alkaline Phosphatase Troponin I High Sens 4.6 Total Protein Albumin Globulin Albumin/Globulin Ratio Lipase TSH Urine Color YELLOW Urine Clarity CLEAR Urine pH 6.0 Ur Specific [place] 1.020 Urine Protein TRACE Urine Glucose (UA) NEGATIVE Urine Ketones NEGATIVE Urine Occult Blood NEGATIVE Urine Nitrite NEGATIVE Urine Bilirubin NEGATIVE Urine Urobilinogen 0.2 (NORMAL) Ur Leukocyte Esterase SMALL H Urine RBC 0-5 Urine WBC 11-25 H Ur Squamous Epith Cells FEW Squamous Urine Bacteria Few Ur Microscopic Review INDICATED Urine Culture Comments INDICATED Urine HCG, Qual NEGATIVE Salicylates Urine Opiates Screen NEGATIVE Ur Oxycodone Screen NEGATIVE Urine Methadone Screen NEGATIVE Ur Propoxyphene Screen NEGATIVE Acetaminophen Ur Barbiturates Screen NEGATIVE Ur Tricyclics Screen NEGATIVE Ur Phencyclidine Scrn NEGATIVE Ur Amphetamine Screen NEGATIVE U Methamphetamines Scrn NEGATIVE U Benzodiazepines Scrn NEGATIVE Urine Cocaine Screen NEGATIVE U Cannabinoids Screen POSITIVE H Ethyl Alcohol 04/18/19 02:17 WBC RBC Hgb Hct MCV MCH MCHC RDW Plt Count MPV Neut # (Auto) Lymph # (Auto) [place] # (Auto) Eos # (Auto) Baso # (Auto) Absolute Nucleated RBC Nucleated RBC % Sodium Potassium Chloride Carbon Dioxide Anion Gap BUN Creatinine Estimated GFR (MDRD) Glucose Calcium Total Bilirubin AST ALT Alkaline Phosphatase Troponin I High Sens 12.9 Total Protein Albumin Globulin Albumin/Globulin Ratio Lipase TSH Urine Color Urine Clarity Urine pH Ur Specific [place] Urine Protein Urine Glucose (UA) Urine Ketones Urine Occult Blood Urine Nitrite Urine Bilirubin Urine Urobilinogen Ur Leukocyte Esterase Urine RBC Urine WBC Ur Squamous Epith Cells Urine Bacteria Ur Microscopic Review Urine Culture Comments Urine HCG, Qual Salicylates Urine Opiates Screen Ur Oxycodone Screen Urine Methadone Screen Ur Propoxyphene Screen Acetaminophen Ur Barbiturates Screen Ur Tricyclics Screen Ur Phencyclidine Scrn Ur Amphetamine Screen U Methamphetamines Scrn U Benzodiazepines Scrn Urine Cocaine Screen U Cannabinoids Screen Ethyl Alcohol - Rads (name of study) chest Radiology: Prelim report reviewed (Impression: Low lung volumes. Clear lungs.), EMP read indepedently, See rad report CT head w/o Radiology: Prelim report reviewed (Impression: No acute intracranial abnormality.), EMP read indepedently, See rad report Procedures - IVC sono (time) 2347 Bedside IVC sono: IVC measures (cm) (2.07), Euvolemia PD MEDICAL DECISION MAKING - ED course Complexity details: reviewed old records, reviewed results, re-evaluated patient, considered differential, d/w patient, d/w family ED course: 23-year-old female transitioning to a male prefers been. He has been on injection of testosterone 200 mg every 2 weeks for about 3 and half months. Tonight he had an injection and began to feel anxious following it and eventually developed a heart rate of 160 and the appearance of a right facial droop as well as some numbness to his fingertips toes and lips. He arrived to the emergency department via ambulance with a heart rate of 166 and an IV in place. He did not appear volume depleted on interrogation of the IVC. He appeared anxious on arrival to the emergency department. Valsalva maneuvers do not appear to affect this. He was initially administered adenosine 6 mg intravenously with no effect. 12 mg administered intravenously had a transient effect. Subsequently administered diltiazem 20 mg intravenously as well as Ativan and his heart rate reduced to the 140 range. Poison control was contacted and indicated no issues with the testosterone are expected and they recommended further ativan. The patient was given a second dose of ativan and over several hours the heart rate came down to under 100. Departure - Departure Disposition: 01 Home, Self Care Clinical Impression: Sustained SVT, Hyperventilation syndrome UTI (urinary tract infection) Qualifiers: Urinary tract infection type: acute cystitis Hematuria presence: without hematuria Qualified Code(s): N30.00 - Acute cystitis without hematuria Instructions: ED UTI Cystitis Female, ED Tachycardia Pat PSVT, ED Hyperventilation Syndrome Follow-Up: Juan Juarez MD [Primary Care Provider] - Prescriptions: Sulfamethoxazole/Trimethoprim [Sulfamethoxazole-Tmp Ds Tablet] 1 each PO BID #10 tablet
[2019-04-18] MEDS ORDERED: ADENOSINE 6 MG/2 ML VIAL IVP ONE
[2019-04-18] MEDS ORDERED: LORazepam 2 MG/ML VIAL IVP STA ×2 (00:01→01:02)
[2019-04-18] MEDS ORDERED: diltiaZEM INJ 5 MG/ML VIAL IVP STA ×2 (00:02→00:12)
[2019-04-18 00:32] LABS: BASOPHILS % (AUTO) 0.3 %; EOSINOPHILS # (AUTO) 0.1 10^3/uL (0.0-0.7); EOSINOPHILS % (AUTO) 0.4 %; HGB - HEMOGLOBIN 13.7 g/dL (12.0-16.0); LYMPHOCYTES # (AUTO) 2.6 10^3/uL (1.5-3.5); LYMPHOCYTES % (AUTO) 21.5 %; MEAN CORPUSCULAR HEMOGLOBIN 28.3 pg (27.0-31.0); MEAN CORPUSCULAR HGB CONC 33.5 g/dL (32.0-36.0); MEAN CORPUSCULAR VOLUME 84.5 fL (81.0-99.0); MEAN PLATELET VOLUME 9.8 fL (7.9-10.8); MONOCYTES # (AUTO) 0.6 10^3/uL (0.0-1.0); MONOCYTES % (AUTO) 5.2 %; NEUTROPHILS # (AUTO) 8.6 10^3/uL (1.5-6.6); PLT - PLATELET COUNT 238 10^3/uL (130-450); RED BLOOD COUNT 4.84 10^6/uL (4.20-5.40); RED CELL DISTRIBUTION WIDTH 13.4 % (12.0-15.0)
[2019-04-18 00:46] LABS: ACETAMINOPHEN < 10 ug/mL (10-30); ALBUMIN 4.4 g/dL (3.2-5.5); ALBUMIN/GLOBULIN RATIO 1.4 (1.0-2.2); ALKALINE PHOSPHATASE 52 IU/L (42-121); ALT ALANINE AMINOTRANSFERASE 25 IU/L (10-60); AST ASPARTATE AMINOTRANSFERASE 26 IU/L (10-42); BILIRUBIN,TOTAL 0.2 mg/dL (0.2-1.0); BUN - BLOOD UREA NITROGEN 16 mg/dL (6-20); CALCIUM 9.3 mg/dL (8.5-10.3); CARBON DIOXIDE - CO2 22 mmol/L (21-32); CHLORIDE 103 mmol/L (101-111); CREATININE 0.9 mg/dL (0.4-1.0); GFR - MDRD 78 (>89); GLUCOSE 146 mg/dL (70-100); LIPASE 23 U/L (22-51); SALICYLATE < 6.0 mg/dL; SODIUM 136 mmol/L (135-145); TOTAL PROTEIN 7.6 g/dL (6.7-8.2)
--- NOTE | 2019-04-18 00:46 | XRAY Report ---
Reason: chest pain Procedure Date: 04/18/2019 Accession Number: [id number] / [id number] Procedure: XR - Chest 1 View X-Ray CPT Code: 06597 Final Report FULL RESULT: EXAM: CHEST RADIOGRAPHY EXAM DATE: 04/18/2019 12:34 AM. CLINICAL HISTORY: Chest pain. COMPARISON: CHEST 2 VIEW PA/LAT 11/20/2016 12:08 PM. TECHNIQUE: 1 view. FINDINGS: Lungs/Pleura: No focal opacities evident. No pleural effusion. No pneumothorax. Mediastinum: Within exam limitations, the cardiomediastinal contour is normal. Other: None. IMPRESSION: Low lung volumes. Clear lungs. RADIA
[2019-04-18 01:00] LABS: MUDS CUTOFF CONCENTRATIONS CUTOFF CONC BELOW:
[2019-04-18 01:02] LABS: BILIRUBIN,URINE NEGATIVE (NEGATIVE); GLUCOSE, URINE (UA) NEGATIVE (NEGATIVE); KETONES,URINE (UA) NEGATIVE (NEGATIVE); LEUKOCYTE ESTERASE, URINE SMALL (NEGATIVE); NITRITE,URINE NEGATIVE (NEGATIVE); OCCULT BLOOD,URINE NEGATIVE (NEGATIVE); PROTEIN,URINE TRACE mg/dL (NEGATIVE); UROBILINOGEN,URINE 0.2 (NORMAL) E.U./dL (NORMAL)
[2019-04-18 01:05] LABS: CLARITY,URINE CLEAR (CLEAR); HCG UR QUAL NEGATIVE
[2019-04-18 01:09] LABS: BACTERIA,URINE Few /HPF (None Seen); RBC,URINE 0-5 /HPF (0-5); SQUAMOUS EPITHELIAL CELL,UR FEW Squamous (<= Few)
[2019-04-18 01:12] LABS: AMPHETAMINE SCREEN,URINE NEGATIVE (NEGATIVE); BENZODIAZEPINES SCREEN, URINE NEGATIVE (NEGATIVE); COCAINE SCREEN URINE NEGATIVE (NEGATIVE); METHADONE SCREEN, URINE NEGATIVE (NEGATIVE); METHAMPHETAMINES SCREEN, URINE NEGATIVE (NEGATIVE); OPIATE SCREEN, URINE NEGATIVE (NEGATIVE); OXYCODONE SCREEN, URINE NEGATIVE (NEGATIVE); PROPOXYPHENE SCREEN, URINE NEGATIVE (NEGATIVE); TRICYCLIC ANTIDEPRESSANT,URINE NEGATIVE (NEGATIVE)
[2019-04-18] MEDS ORDERED: cefTRIAXone 1 GM in SODIUM CHLORIDE 0.9% MINIBAG 100 ML IV STA (01:25)
--- NOTE | 2019-04-18 01:29 | CT Report ---
Reason: altered LOC Procedure Date: 04/18/2019 Accession Number: [id number] / [id number] Procedure: CT - HEAD WO CPT Code: Final Report FULL RESULT: EXAM: CT HEAD EXAM DATE: 04/18/2019 12:53 AM CLINICAL HISTORY: Altered LOC. COMPARISON: None. TECHNIQUE: Multiaxial CT images were obtained from the foramen magnum to the vertex. Reformats: Sagittal and coronal. IV contrast: None. In accordance with CT protocol optimization, one or more of the following dose reduction techniques were utilized for this exam: automated exposure control, adjustment of mA and/or KV based on patient size, or use of iterative reconstructive technique. FINDINGS: Parenchyma: No intraparenchymal hemorrhage. No evidence of mass, midline shift, or CT findings of infarction. Thomas-white differentiation is distinct. Extraaxial Spaces: Normal for age. No subdural or epidural collections identified. Ventricles: Normal in size and position. Sinuses and Orbits: Bilateral maxillary sinus mucosal thickening. The visualized orbits and mastoid air cells are unremarkable. Bones: No evidence of fracture or calvarial defect. Other: None. IMPRESSION: No acute intracranial abnormality. RADIA
[2019-04-18 06:02] VITALS: BP 122/75
== END 2019-04-18 06:25 | disposition home or self-care (01) ==
LOC: EDUNIT# → ED 23:38
DX: I47.1 Supraventricular tachycardia (principal); N30.00 Acute cystitis without hematuria; F45.8 Other somatoform disorders; F41.9 Anxiety disorder, unspecified
CPT/HCPCS: 36415; 70450; 71045; 80053; 80306; 80307; 80320; 80329; 81001; 81025; 83690; 84443; 84484; 85025; 87086; 93005; 96365; 96375; 96376; 99281; 99285; J0153; J2060; 81003

== ENCOUNTER 2019-04-25 16:22 | Emergency (ER) | payer OTHER, MEDICAID ==
[2019-04-25 16:48] VITALS: BP 135/79
[2019-04-25] MEDS ORDERED: TETANUS/DIPHTHERIA/PERTUSSIS 0.5 ML SYRINGE IM ONE (17:15)
[2019-04-25] MEDS ORDERED: BACITRACIN ZINC OINT 1 PACKET TOP STA (17:15)
[2019-04-25] MEDS ORDERED: IBUPROFEN 800 MG TABLET PO STA (17:16)
--- NOTE | 2019-04-25 17:18 | ED Physician Documentation ---
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 Quick clot applied and bleeding now resolved. 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 : None HEENT: Chronic vision loss Psych: Anxiety, Panic attacks, Post traumatic stress disorder Musculoskeletal: None Derm: Rosacea - Past Surgical History Past Surgical History: Yes General: Colonoscopy HEENT: Myringotomy (tubes), Other - Present Medications Home Medications: Ambulatory Orders Medication Instructions Recorded Confirmed Ondansetron Odt [Zofran] 4 mg TL Q6H PRN #14 tablet 07/20/18 12/19/18 Prazosin [Minipress] 2 mg PO QPM 07/23/18 12/19/18 Sertraline HCl 100 mg PO DAILY 08/24/18 12/19/18 Acetaminophen [Tylenol] 650 mg PO Q6H PRN #50 tablet 08/29/18 12/19/18 Ibuprofen [Advil] 600 mg PO Q6H PRN #50 tablet 08/29/18 12/19/18 OLANZapine [Zyprexa] 5 mg PO BID #30 tablet 10/16/18 12/19/18 Meloxicam [Mobic] 7.5 mg PO DAILY 12/19/18 12/19/18 Sulfamethoxazole/Trimethoprim 1 each PO BID #10 tablet 04/18/19 [Sulfamethoxazole-Tmp Ds Tablet] Testosterone Cypionate 200 mg SQ 04/18/19 Bacitracin Zinc Oint 1 applic TOP BID #1 tube 04/25/19 - Allergies Allergies/Adverse Reactions: Allergies Allergy/AdvReac Type Severity Reaction Status Date / Time caterpillars Allergy Unknown Uncoded 04/25/19 16:47 dairy products AdvReac bloating, Uncoded 04/25/19 16:47 constipation enriched flour products AdvReac Nausea Uncoded 04/25/19 16:47 - Social History Does the pt smoke?: No Smoking Status: Never smoker Does the pt drink ETOH?: No Does the pt have substance abuse?: No - Immunizations Immunizations are current?: Yes - POLST Patient has POLST: No PD ED PE NORMAL - Vitals Vital signs reviewed: Yes - General General: Alert and oriented X 3, No acute distress - HEENT HEENT: Moist mucous membranes - Derm Derm: Warm and dry - Extremities Extremities: Other (Right index finger 0.5 x 1.5 cm avulsion to the pad of the finger. No bone exposed. Superficial. Not bleeding. Neurovascular intact.) - Neuro Neuro: Alert and oriented X 3 Results - Vitals Vitals: Vital Signs - 24 hr 04/25/19 16:44 Temperature 36.9 C Heart Rate 83 Respiratory 16 Rate Blood Pressure 135/79 H O2 Saturation 97 Oxygen O2 Source Room air PD MEDICAL DECISION MAKING - ED course Complexity details: considered differential, d/w patient ED course: Avulsion to the right index finger, pad. No bone exposed. Neurovascularly intact. Will place on antibiotic ointment and bandage and allow this to heal by secondary intention. Tdap given. Warnings of infection and instructions on wound care given at bedside. Also counseled on how to minimize scarring. Patient counseled regarding signs and symptoms for which I believe and urgent re-evaluation would be necessary. Patient with good understanding of and agreement to plan and is comfortable going home at this time This document was made in part using voice recognition software. While efforts are made to proofread this document, sound alike and grammatical errors may occur. Departure - Departure Disposition: 01 Home, Self Care Clinical Impression: Fingertip avulsion Qualifiers: Encounter type: initial encounter Qualified Code(s): S61.209A - Unspecified open wound of unspecified finger without damage to nail, initial encounter Condition: Good Instructions: ED Avulsion Dermal Follow-Up: Juan Juarez MD [Primary Care Provider] - (For wound check) Prescriptions: Bacitracin Zinc Oint 1 applic TOP BID #1 tube Comments: You can apply the antibiotic ointment twice a day. Return if you notice redness, swelling or drainage from the wound. This will heal on its own. Discharge Date/Time: 04/25/19 17:34
== END 2019-04-25 17:34 | disposition home or self-care (01) ==
LOC: ED 16:22
DX: S61.210A Laceration without foreign body of right index finger without damage to nail, initial encounter (principal); W29.8XXA Contact with other powered hand tools and household machinery, initial encounter; Y93.G1 Activity, food preparation and clean up; Y99.0 Civilian activity done for income or pay; Z23 Encounter for immunization
CPT/HCPCS: 90471; 90715; 99283; A9270

== ENCOUNTER 2019-07-03 18:50 | Outpatient (CLI) | payer MEDICAID | END 2019-07-03 18:51 | disposition home or self-care (01) | LOC: COV 18:50 | PROVIDERS: ATTEND Family Medicine | DX: R05 Cough (principal); R50.9 Fever, unspecified | CPT/HCPCS: 81599 ==

== ENCOUNTER 2020-02-01 17:01 | Outpatient (CLI) | payer MEDICAID ==
[2020-02-01 17:19] LABS: BASOPHILS % (AUTO) 0.4 %; EOSINOPHILS # (AUTO) 0.3 10^3/uL (0.0-0.7); HGB - HEMOGLOBIN 16.7 g/dL (12.0-16.0); LYMPHOCYTES # (AUTO) 2.4 10^3/uL (1.5-3.5); LYMPHOCYTES % (AUTO) 26.4 %; MEAN CORPUSCULAR HEMOGLOBIN 30.3 pg (27.0-31.0); MEAN CORPUSCULAR HGB CONC 34.4 g/dL (32.0-36.0); MEAN CORPUSCULAR VOLUME 88.2 fL (81.0-99.0); MEAN PLATELET VOLUME 9.2 fL (7.9-10.8); MONOCYTES # (AUTO) 0.6 10^3/uL (0.0-1.0); MONOCYTES % (AUTO) 6.7 %; NEUTROPHILS # (AUTO) 5.7 10^3/uL (1.5-6.6); NEUTROPHILS % (AUTO) 62.9 %; PLT - PLATELET COUNT 236 10^3/uL (130-450); RED BLOOD COUNT 5.51 10^6/uL (4.20-5.40); RED CELL DISTRIBUTION WIDTH 12.6 % (12.0-15.0); WHITE BLOOD COUNT 9.1 x10^3/uL (4.8-10.8)
[2020-02-01 17:27] LABS: ALBUMIN 4.7 g/dL (3.2-5.5); ALBUMIN/GLOBULIN RATIO 1.3 (1.0-2.2); BILIRUBIN,TOTAL 0.8 mg/dL (0.2-1.0); CALCIUM 9.6 mg/dL (8.5-10.3); CREATININE 0.8 mg/dL (0.4-1.0); TOTAL PROTEIN 8.2 g/dL (6.7-8.2)
[2020-02-01] MEDS ORDERED: IOVERSOL 320 50 ML VIAL PO ONE (18:39)
[2020-02-01] MEDS ORDERED: IOVERSOL 320 100 ML VIAL IVP ONE (18:39)
--- NOTE | 2020-02-02 10:18 | CT Report ---
PROCEDURE: Abdomen/Pelvis W INDICATIONS: Abdominal Pain CONTRAST: IV CONTRAST: Optiray 320 ml: 100 PO CONTRAST: Optiray 320 ml50 TECHNIQUE: After the administration of 100 cc Optiray 320 IV contrast, 5 mm thick sections acquired from the neo phragms to the symphysis. 5 mm thick coronal and sagittal reformats were acquired. For radiation do se reduction, the following was used: automated exposure control, adjustment of mA and/or kV accordi ng to patient size. COMPARISON: None. FINDINGS: Image quality: Excellent. ABDOMEN: Lung bases: Lung bases are clear. Heart size is normal. Solid organs: Liver and spleen are normal in size and enhancement. Gallbladder is surgically absent Biliary system is non dilated. Pancreas enhances normally. No adrenal nodules. Kidneys demonstra te normal size and enhancement, without hydronephrosis. Peritoneum and bowel: The appendix is normal. There is circumferential wall thickening of the termin al ileum and ascending colon to the hepatic flexure with mild fat infiltration in the proximal colon wall. Prominent lymph nodes in the right lower quadrant mesentery are seen, one of the largest measur ing up to 1.5 cm in short axis. No significant pericolonic fat stranding or adjacent fluid. The desce nding colon, rectum, stomach, and the rest of the small bowel appear normal. Incidental note is made of nonobstructing intussusception in the left upper quadrant small bowel loops.. No free fluid or ai r. Nodes and vessels: No retroperitoneal or mesenteric adenopathy by size criteria. Aorta and inferior vena cava are normal in size. Miscellaneous: No ventral hernias. PELVIS: Genitourinary: Bladder wall thickness is normal. Uterus and ovaries appear normal. Miscellaneous: No inguinal hernias or adenopathy. Bones: No suspicious bony lesions. No vertebral body compression fractures. IMPRESSION: 1. Wall thickening of the terminal ileum and descending colon. This may indicate mild colitis, with e tiologies including infectious and inflammatory changes. 2. Prominent right lower quadrant mesenteric adenitis. 3. Normal appendix. 4. Post cholecystectomy. Reviewed by: Shaylee Corbin MD on 02/02/2020 10:16 AM PDT Approved by: Shaylee Corbin MD on 02/02/2020 10:16 AM PDT Station ID: [id number]
== END 2020-02-01 17:02 | disposition home or self-care (01) ==
LOC: LAB 17:01
PROVIDERS: ATTEND Family Medicine
DX: R10.9 Unspecified abdominal pain (principal); R19.7 Diarrhea, unspecified; I88.0 Nonspecific mesenteric lymphadenitis
CPT/HCPCS: 74177; 80053; 85025; Q9967; 36415

== ENCOUNTER 2020-03-08 06:22 | Day surgery (SDC) | payer MEDICAID ==
[2020-03-08] MEDS ORDERED: PROPOFOL 200 MG/20 ML VIAL IVP ONE (06:23)
[2020-03-08] MEDS ORDERED: MIDAZOLAM 2 MG/2 ML VIAL IVP ONE (06:23)
[2020-03-08] MEDS ORDERED: fentaNYL 100 MCG/2 ML VIAL IVP ONE (06:23)
[2020-03-08 06:48] LABS: HCG UR QUAL NEGATIVE
[2020-03-08] MEDS ORDERED: LACTATED RINGERS 1,000 ML IV ONE ×2 (06:56→08:07)
--- NOTE | 2020-03-08 07:08 | ANESTHESIA ---
Pre-Anesthesia VS, & Labs - Diagnosis IBD, history of polp - Procedure colonscopy Vital Signs: Temp Pulse Resp BP Pulse Ox 36. C L 108 H 18 135/89 H 97 03/08/20 06:31 03/08/20 06:31 03/08/20 06:31 03/08/20 06:31 03/08/20 06:31 Height: 5 ft Weight (kg): 95.4 kg Body Mass Index: 41.1 BMI Classification: Morbidly Obese - NPO >8 hours - Is Patient ?: No Home Medications and Allergies Home Medications: Ambulatory Orders hydrOXYzine HCL [Hydroxyzine HCl] 25 mg PO QID PRN 03/05/20 polyethylene glycoL 3350 [Miralax] 1.5 cap PO DAILY 03/05/20 Prazosin [Minipress] 2 mg PO QPM 07/23/18 Sertraline HCl 50 mg PO DAILY 08/24/18 Meloxicam [Mobic] 15 mg PO DAILY 12/19/18 Testosterone Cypionate 200 mg SQ ONCE 04/18/19 hydrOXYzine HCL [Hydroxyzine HCl] 25 mg PO QID PRN 03/05/20 polyethylene glycoL 3350 [Miralax] 1.5 cap PO DAILY 03/05/20 Allergies/Adverse Reactions: Allergies Allergy/AdvReac Type Severity Reaction Status Date / Time caterpillars Allergy Unknown Uncoded 04/25/19 16:47 dairy products AdvReac bloating, Uncoded 04/25/19 16:47 constipation enriched flour products AdvReac Nausea Uncoded 04/25/19 16:47 sedatives AdvReac "cause Uncoded 03/05/20 08:49 panic" Anes History & Medical History - Anesthetic History Anesthesia Complications: reports: No previous complications - Medical History Cardiovascular: reports: None Pulmonary: reports: Asthma (allergy related) Gastrointestinal: reports: Colon polyps, Other Urinary: reports: None Neuro: reports: None Musculoskeletal: reports: None Endocrine/Autoimmune: reports: None Blood Disorders: reports: None Skin: reports: None Smoking Status: Never smoker Psychosocial: reports: Depression, Anxiety, Other (PTSD) - Surgical History General: Cholecystectomy, Colonoscopy Eyes Ears Nose Throat (EENT): Myringotomy (tubes), Other Exam General: Alert, Oriented x3, Cooperative, No acute distress Dental: WNL Mouth Openin Fingerbreadth Neck Mobility: Normal Mallampati classification: I Thyromental Distance: 4-6 cm Mental/Cognitive Status: Alert/Oriented X3, Normal for patient Plan Anesthesia Type: MAC Consent for Procedure(s) Verified and Reviewed: Yes Code Status: Attempt Resuscitation ASA classification: 2-Mild systemic disease Is this case an emergency?: No
[2020-03-08 08:40] VITALS: BP 101/68
--- NOTE | 2020-03-08 11:23 | ANESTHESIA POST OP EVALUATION ---
Anesthesia Post Eval - Post Anesthesia Eval Vitals: Last Vital Signs Temp 36.2 C L 03/08/20 08:39 Pulse 76 03/08/20 08:39 Resp 15 03/08/20 08:39 BP 101/68 03/08/20 08:39 Pulse Ox 96 03/08/20 08:39 CV Function Including HR & BP: positive: Stable Pain Control: positive: Satisfactory Nausea & Vomiting: positive: Negative Mental Status: positive: Baseline Respiratory Status: Airway Patent Hydration Status: Satisfactory Anesthesia Complications: positive: None
== END 2020-03-08 06:23 | disposition home or self-care (01) ==
LOC: SDS 06:22
PROVIDERS: ATTEND Surgery
PROC: 0DBB8ZX Excision of Ileum, Via Natural or Artificial Opening Endoscopic, Diagnostic (ICD-10-PCS; 2020-03-08)
PROC: 0DBM8ZX Excision of Descending Colon, Via Natural or Artificial Opening Endoscopic, Diagnostic (ICD-10-PCS; 2020-03-08)
PROC: 0DBK8ZX Excision of Ascending Colon, Via Natural or Artificial Opening Endoscopic, Diagnostic (ICD-10-PCS; principal; 2020-03-08 07:30)
DX: R10.9 Unspecified abdominal pain (principal); K92.1 Melena; K52.9 Noninfective gastroenteritis and colitis, unspecified; Z80.0 Family history of malignant neoplasm of digestive organs; Z86.010 Personal history of colon polyps; E66.01 Morbid (severe) obesity due to excess calories; Z68.41 Body mass index [BMI] 40.0-44.9, adult; F41.9 Anxiety disorder, unspecified; Z87.820 Personal history of traumatic brain injury
CPT/HCPCS: 45380; 81025; J7120

== ENCOUNTER 2020-04-10 21:50 | Emergency (ER) | payer MEDICAID ==
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
[2020-04-10 22:55] LABS: BASOPHILS % (AUTO) 0.4 %; EOSINOPHILS # (AUTO) 0.2 10^3/uL (0.0-0.7); HGB - HEMOGLOBIN 16.2 g/dL (12.0-16.0); LYMPHOCYTES # (AUTO) 3.5 10^3/uL (1.5-3.5); LYMPHOCYTES % (AUTO) 34.2 %; MEAN CORPUSCULAR HEMOGLOBIN 29.7 pg (27.0-31.0); MEAN CORPUSCULAR HGB CONC 34.1 g/dL (32.0-36.0); MEAN CORPUSCULAR VOLUME 87.2 fL (81.0-99.0); MEAN PLATELET VOLUME 9.1 fL (7.9-10.8); MONOCYTES # (AUTO) 0.5 10^3/uL (0.0-1.0); MONOCYTES % (AUTO) 4.9 %; NEUTROPHILS % (AUTO) 58.2 %; PLT - PLATELET COUNT 258 10^3/uL (130-450); RED BLOOD COUNT 5.45 10^6/uL (4.20-5.40); RED CELL DISTRIBUTION WIDTH 12.3 % (12.0-15.0); WHITE BLOOD COUNT 10.3 x10^3/uL (4.8-10.8)
[2020-04-10 23:01] LABS: MUDS CUTOFF CONCENTRATIONS CUTOFF CONC BELOW:
[2020-04-10 23:03] LABS: BILIRUBIN,URINE NEGATIVE (NEGATIVE); GLUCOSE, URINE (UA) NEGATIVE (NEGATIVE); KETONES,URINE (UA) NEGATIVE (NEGATIVE); LEUKOCYTE ESTERASE, URINE NEGATIVE (NEGATIVE); NITRITE,URINE NEGATIVE (NEGATIVE); OCCULT BLOOD,URINE NEGATIVE (NEGATIVE); PROTEIN,URINE NEGATIVE (NEGATIVE); UROBILINOGEN,URINE 1 (NORMAL) E.U./dL (NORMAL)
[2020-04-10 23:04] LABS: CLARITY,URINE CLEAR (CLEAR); HCG UR QUAL NEGATIVE
[2020-04-10 23:09] LABS: ACETAMINOPHEN < 10 ug/mL (10-30); ALBUMIN/GLOBULIN RATIO 1.5 (1.0-2.2); ALKALINE PHOSPHATASE 64 IU/L (42-121); ALT ALANINE AMINOTRANSFERASE 19 IU/L (10-60); AST ASPARTATE AMINOTRANSFERASE 17 IU/L (10-42); BILIRUBIN,TOTAL 0.8 mg/dL (0.2-1.0); BUN - BLOOD UREA NITROGEN 20 mg/dL (6-20); CALCIUM 9.8 mg/dL (8.5-10.3); CARBON DIOXIDE - CO2 24 mmol/L (21-32); CHLORIDE 103 mmol/L (101-111); CREATININE 0.7 mg/dL (0.4-1.0); GLUCOSE 91 mg/dL (70-100); LIPASE 23 U/L (22-51); SALICYLATE < 6.0 mg/dL; SODIUM 136 mmol/L (135-145); TOTAL PROTEIN 8.3 g/dL (6.7-8.2)
[2020-04-10 23:14] LABS: AMPHETAMINE SCREEN,URINE NEGATIVE (NEGATIVE); BENZODIAZEPINES SCREEN, URINE NEGATIVE (NEGATIVE); COCAINE SCREEN URINE NEGATIVE (NEGATIVE); METHADONE SCREEN, URINE NEGATIVE (NEGATIVE); METHAMPHETAMINES SCREEN, URINE NEGATIVE (NEGATIVE); OPIATE SCREEN, URINE NEGATIVE (NEGATIVE); OXYCODONE SCREEN, URINE NEGATIVE (NEGATIVE); PROPOXYPHENE SCREEN, URINE NEGATIVE (NEGATIVE); TRICYCLIC ANTIDEPRESSANT,URINE NEGATIVE (NEGATIVE)
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
[2020-04-11 08:01] VITALS: BP 142/77
== END 2020-04-11 09:45 | disposition home or self-care (01) ==
LOC: ED 21:50
DX: R44.0 Auditory hallucinations (principal); F90.0 Attention-deficit hyperactivity disorder, predominantly inattentive type; F41.9 Anxiety disorder, unspecified; F43.10 Post-traumatic stress disorder, unspecified; H74.02 Tympanosclerosis, left ear
CPT/HCPCS: 36415; 80053; 80306; 80307; 80320; 80329; 81003; 81025; 83690; 85025; 99283; 99285; G0426; 81001; 87086

== ENCOUNTER 2020-05-18 12:56 | Emergency (ER) | payer MEDICAID ==
[2020-05-18] MEDS ORDERED: clonazePAM 0.5 MG TABLET PO STA (13:19)
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
[2020-05-18 14:29] VITALS: BP 158/100
== END 2020-05-18 14:45 | disposition home or self-care (01) ==
LOC: ED 12:56
DX: F43.10 Post-traumatic stress disorder, unspecified (principal); F41.9 Anxiety disorder, unspecified
CPT/HCPCS: 99283; A9270

== ENCOUNTER 2020-05-29 08:00 | Outpatient (CLI) | payer MEDICAID ==
[2020-05-29 18:20] LABS: BASOPHILS % (AUTO) 0.4 %; EOSINOPHILS # (AUTO) 0.2 10^3/uL (0.0-0.7); EOSINOPHILS % (AUTO) 2.4 %; LYMPHOCYTES % (AUTO) 31.5 %; MEAN CORPUSCULAR HEMOGLOBIN 29.6 pg (27.0-31.0); MEAN CORPUSCULAR HGB CONC 32.9 g/dL (32.0-36.0); MEAN PLATELET VOLUME 9.5 fL (7.9-10.8); MONOCYTES # (AUTO) 0.5 10^3/uL (0.0-1.0); MONOCYTES % (AUTO) 4.7 %; NEUTROPHILS # (AUTO) 5.7 10^3/uL (1.5-6.6); NEUTROPHILS % (AUTO) 60.5 %; PLT - PLATELET COUNT 251 10^3/uL (130-450); RED CELL DISTRIBUTION WIDTH 13.1 % (12.0-15.0); WHITE BLOOD COUNT 9.5 x10^3/uL (4.8-10.8)
[2020-05-29 18:31] LABS: ALBUMIN 4.6 g/dL (3.2-5.5); ALBUMIN/GLOBULIN RATIO 1.4 (1.0-2.2); BILIRUBIN,TOTAL 0.6 mg/dL (0.2-1.0); CALCIUM 9.5 mg/dL (8.5-10.3); CREATININE 0.6 mg/dL (0.4-1.0); TOTAL PROTEIN 7.9 g/dL (6.7-8.2)
== END 2020-05-29 23:59 | disposition home or self-care (01) ==
LOC: LAB.WCP 08:00
PROVIDERS: ATTEND Family Medicine
DX: Z87.890 Personal history of sex reassignment (principal)
CPT/HCPCS: 36415; 80053; 81599; 82670; 84402; 84403; 85025

== ENCOUNTER 2020-06-18 11:51 | Emergency (ER) | payer MEDICAID ==
--- NOTE | 2020-06-18 12:12 | ED Physician Documentation ---
History of Present Illness - Stated complaint Stated Complaint: CHEST PX,ABD PX - Chief complaint Chief Complaint: Abd Pain - History obtained from History obtained from: Patient - Additonal information Additional information: 24-year-old female to male transitioning patient presents to the emergency department for evaluation of 5 days upper abdominal pain with radiation to the chest. Some nausea no vomiting. Reports a fever of 101 at home. No changes in bowel or bladder habits. He states that the pain is worse with a deep breath and described as sharp. No family history of sudden or early cardiac or disease in family. Patient is a non-smoker. Past surgical history includes a cholecystectomy about 2 years ago. Pt does wonder if he simply might be "stressed out." Patient denies changes to bowel habits. However does report that they do not work normally and he often has to push in order to make sure that he is able to defecate. Patient currently on weekly testosterone injections Review of Systems Constitutional: reports: Fever. denies: Chills, Myalgias Eyes: reports: Reviewed and negative Ears: reports: Reviewed and negative Nose: reports: Reviewed and negative Throat: reports: Reviewed and negative Cardiac: reports: Chest pain / pressure. denies: Palpitations, Pedal edema, Calf pain Respiratory: denies: Dyspnea, Cough, Hemoptysis, Wheezing GI: reports: Abdominal Pain, Nausea. 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 : None HEENT: Chronic vision loss, Other Psych: Depression, Anxiety, Schizophrenia, Panic attacks Musculoskeletal: None Derm: None - Past Surgical History Past Surgical History: Yes General: Cholecystectomy, Colonoscopy HEENT: Myringotomy (tubes), Other - Present Medications Home Medications: Ambulatory Orders Medication Instructions Recorded Confirmed Prazosin [Minipress] 2 mg PO QPM 07/23/18 06/18/20 Sertraline HCl 200 mg PO DAILY 08/24/18 06/18/20 Acetaminophen [Tylenol] 650 mg PO Q6H PRN #50 tablet 08/29/18 06/18/20 Ibuprofen [Advil] 600 mg PO Q6H PRN #50 tablet 08/29/18 06/18/20 Meloxicam [Mobic] 15 mg PO DAILY 12/19/18 06/18/20 Testosterone Cypionate 200 mg SQ ONCE 04/18/19 06/18/20 hydrOXYzine HCL [Hydroxyzine HCl] 25 mg PO QID PRN 03/05/20 06/18/20 polyethylene glycoL 3350 [Miralax] 1.5 cap PO PRN PRN 03/05/20 06/18/20 Atomoxetine HCl [Strattera] 40 mg PO DAILY PM #20 capsule 04/11/20 06/18/20 Pantoprazole Sodium [Protonix] 20 mg PO DAILY #30 06/18/20 Sucralfate [Carafate] 1 gm PO ACHS #60 tablet 06/18/20 clonazePAM [KlonoPIN] 0.5 mg PO DAILY 06/18/20 06/18/20 - Allergies Allergies/Adverse Reactions: Allergies Allergy/AdvReac Type Severity Reaction Status Date / Time caterpillars Allergy Unknown Uncoded 06/18/20 12:01 dairy products AdvReac bloating, Uncoded 06/18/20 12:01 constipation enriched flour products AdvReac Nausea Uncoded 06/18/20 12:01 sedatives AdvReac "cause Uncoded 06/18/20 12:01 panic" - Social History Does the pt smoke?: No Smoking Status: Never smoker Does the pt drink ETOH?: No Does the pt have substance abuse?: No - Immunizations Immunizations are current?: Yes - POLST Patient has POLST: No PD ED PE EXPANDED - General General: Alert, No acute distress, Well developed/nourished - Cardiac Cardiac: Regular Rate, Regular Rhythm, Radial strong equal, Cap refill < 2 sec. No: Murmur Present - Respiratory Respiratory: Clear to ausultation sascha. No: Distress, Labored - Abdomen Abdomen: Normal Bowel sounds, Tender to palpation, Guarding (upper epigastric TTP withotu guarding. no CBA tenderness). No: Rebound - Derm Derm: Normal color, Warm and dry, Purpura, Abscess. No: Rash - Extremities Extremities: Normal, Deformity - Neuro Neuro: Alert and Oriented X 3, CNII-XII intact - GCS Eye Opening: Spontaneous Motor: Obeys Commands Verbal: Oriented Total: 15 Results - Vitals Vitals: Vital Signs - 24 hr 06/18/20 06/18/20 11:55 12:49 Temperature 37.1 C 37.1 C Heart Rate 88 85 Respiratory 18 18 Rate Blood Pressure 135/78 H 134/87 H O2 Saturation 99 96 Oxygen O2 Source Room air - EKG (time done) 1211 Rate: Rate (enter#) (96) Rhythm: NSR [place]: Normal Intervals: Normal MO QRS: Normal Ischemia: Normal ST segments Compare to prior EKG: Changed from prior EKG (previous EKG sinus tachycardia) Computer interpretation: Agree with computer - Labs Labs: Laboratory Tests 06/18/20 06/18/20 06/18/20 12:04 12:04 12:04 WBC 11.0 H RBC 5.51 H Hgb 16.6 H Hct 48.5 H MCV 88.0 MCH 30.1 MCHC 34.2 RDW 12.6 Plt Count 254 MPV 9.3 Neut # (Auto) 7.8 H Lymph # (Auto) 2.4 Freestone # (Auto) 0.6 Eos # (Auto) 0.2 Baso # (Auto) 0.0 Absolute Nucleated RBC 0.00 Nucleated RBC % 0.0 D-Dimer Sodium 135 Potassium 4.5 Chloride 97 L Carbon Dioxide 28 Anion Gap 10.0 BUN 18 Creatinine 0.8 Estimated GFR (MDRD) 89 Glucose 87 Calcium 10.2 Total Bilirubin 0.8 AST 18 ALT 21 Alkaline Phosphatase 65 Troponin I High Sens 2.6 Total Protein 7.8 Albumin 4.7 Globulin 3.1 Albumin/Globulin Ratio 1.5 Lipase 21 L 06/18/20 12:13 WBC RBC Hgb Hct MCV MCH MCHC RDW Plt Count MPV Neut # (Auto) Lymph # (Auto) [place] # (Auto) Eos # (Auto) Baso # (Auto) Absolute Nucleated RBC Nucleated RBC % D-Dimer 210.0 Sodium Potassium Chloride Carbon Dioxide Anion Gap BUN Creatinine Estimated GFR (MDRD) Glucose Calcium Total Bilirubin AST ALT Alkaline Phosphatase Troponin I High Sens Total Protein Albumin Globulin Albumin/Globulin Ratio Lipase - Rads (name of study) CXR Radiology: Final report received (acute cardiopulmonary findings), EMP read indepedently PD MEDICAL DECISION MAKING - ED course Complexity details: reviewed results, re-evaluated patient, considered differential, d/w patient ED course: Well-appearing 24-year-old female to male transitioning patient presents to the emergency department for evaluation of 5 days sharp upper abdomen and left-sided chest pain. He has some nausea but no vomiting. No melena or hematochezia. On exam only the epigastrium was mildly tender there was no guarding or rebound. Screening EKG was nonischemic and sinus rhythm. High-sensitivity troponin negative. Given pleuritic component D-dimer was obtained and was also negative. Chest x-ray shows no acute focal abnormalities. His screening labs were without any acute worrisome findings. He was given a cocktail of Maalox as well as lidocaine with near full resolution of the pain. I suspect that he is likely developing gastritis or peptic ulcer disease. Patient will be started on a course of Protonix and Carafate. Advised follow-up with primary care provider. He may benefit from referral to GI for further evaluation. Patient is cautioned to return to the emergency department for fevers suddenly w orse or different abdominal pain back of bloody bowel movements any syncopal episodes. Departure - Departure Disposition: 01 Home, Self Care Clinical Impression: Epigastric abdominal pain Condition: Stable Record reviewed to determine appropriate education?: Yes Instructions: Abdominal Pain Follow-Up: Erin De Leon DO [Primary Care Provider] - Prescriptions: Sucralfate [Carafate] 1 gm PO ACHS #60 tablet Pantoprazole Sodium [Protonix] 20 mg PO DAILY #30 Comments: Mychal you were seen in the emergency department today for upper abdominal thomas n that radiated to your chest. Your screening EKG is unremarkable for age and normal. The labs that we sent to check for signs you are having a heart attack or even had a blood clot in your chest were also normal. Your chest x-ray is normal. Your screening labs including your electrolytes and your CBC are normal. You were given a cocktail of medication here in the emergency department that ma y treat suspected gastritis or peptic ulcer disease. Your pain improved a lot after taking this medication. As I discussed I suspect that you may be developing gastritis or peptic ulcer disease. I would like you to be begin taking the Protonix daily as well as the Carafate at night before going to bed. Please discuss this ED visit with your primary care provider. You may benefit from referral to a web analytics developer for possible EGD in the future where they could place a camera in your throat looking at the tissue of the esophagus and stomach to see if you are developing ulcers. If you find that your pain is suddenly worse, you have black or bloody bowel movements, uncontrolled fevers any fainting episodes or feel that your symptoms are worsening please return to the ER for a second look.
[2020-06-18 12:18] LABS: BASOPHILS % (AUTO) 0.4 %; EOSINOPHILS # (AUTO) 0.2 10^3/uL (0.0-0.7); EOSINOPHILS % (AUTO) 1.5 %; HCT - HEMATOCRIT 48.5 % (37.0-47.0); HGB - HEMOGLOBIN 16.6 g/dL (12.0-16.0); LYMPHOCYTES # (AUTO) 2.4 10^3/uL (1.5-3.5); LYMPHOCYTES % (AUTO) 21.7 %; MEAN CORPUSCULAR HEMOGLOBIN 30.1 pg (27.0-31.0); MEAN CORPUSCULAR HGB CONC 34.2 g/dL (32.0-36.0); MEAN PLATELET VOLUME 9.3 fL (7.9-10.8); MONOCYTES # (AUTO) 0.6 10^3/uL (0.0-1.0); NEUTROPHILS # (AUTO) 7.8 10^3/uL (1.5-6.6); PLT - PLATELET COUNT 254 10^3/uL (130-450); RED BLOOD COUNT 5.51 10^6/uL (4.20-5.40); RED CELL DISTRIBUTION WIDTH 12.6 % (12.0-15.0)
[2020-06-18 12:32] LABS: ALBUMIN 4.7 g/dL (3.2-5.5); ALBUMIN/GLOBULIN RATIO 1.5 (1.0-2.2); BILIRUBIN,TOTAL 0.8 mg/dL (0.2-1.0); CALCIUM 10.2 mg/dL (8.5-10.3); CREATININE 0.8 mg/dL (0.4-1.0); POTASSIUM 4.5 mmol/L (3.5-5.0); TOTAL PROTEIN 7.8 g/dL (6.7-8.2)
[2020-06-18] MEDS ORDERED: LIDOCAINE VISCOUS 2% 15 ML UDC MM STA (12:38)
[2020-06-18] MEDS ORDERED: MAG HYDROX/AL HYDROX/SIMETH 30 ML UDC PO STA (12:40)
--- NOTE | 2020-06-18 12:41 | XRAY Report ---
PROCEDURE: Chest 1 View X-Ray INDICATIONS: chest pain TECHNIQUE: One view of the chest was acquired. COMPARISON: Chest x-ray 04/18/2019 FINDINGS: Surgical changes and devices: None. Lungs and pleura: No pleural effusions or pneumothorax. Lungs are clear. Mediastinum: Mediastinal contours appear normal. Heart size is normal. Bones and chest wall: No suspicious bony lesions. Overlying soft tissues appear unremarkable. IMPRESSION: No acute pulmonary process. Reviewed by: Sharri Howell MD on 06/18/2020 12:40 PM [facility] Approved by: Sharri Howell MD on 06/18/2020 12:40 PM [facility] Station ID: [id number]
[2020-06-18 12:50] VITALS: BP 134/87
[2020-06-18 13:14] LABS: BILIRUBIN,URINE NEGATIVE (NEGATIVE); GLUCOSE, URINE (UA) NEGATIVE (NEGATIVE); KETONES,URINE (UA) NEGATIVE (NEGATIVE); LEUKOCYTE ESTERASE, URINE NEGATIVE (NEGATIVE); NITRITE,URINE NEGATIVE (NEGATIVE); OCCULT BLOOD,URINE NEGATIVE (NEGATIVE); PH,URINE 8.5 PH (5.0-7.5); PROTEIN,URINE NEGATIVE (NEGATIVE); UROBILINOGEN,URINE 1 (NORMAL) E.U./dL (NORMAL)
[2020-06-18 13:15] LABS: CLARITY,URINE CLEAR (CLEAR); HCG UR QUAL NEGATIVE
== END 2020-06-18 13:31 | disposition home or self-care (01) ==
LOC: ED 11:51
DX: R10.13 Epigastric pain (principal); R07.9 Chest pain, unspecified; R11.0 Nausea
CPT/HCPCS: 36415; 71045; 80053; 81003; 81025; 83690; 84484; 85025; 85379; 93005; 99284; A9270; 81001; 87086

== ENCOUNTER 2020-08-04 20:16 | Emergency (ER) | payer MEDICAID ==
--- OUTSIDE RECORDS SUMMARY | 2020-08-04 20:19 | EXTERNAL MEDICAL SUMMARY RPT | Continuity of Care Document ---
:1995 Demographics Phone Unavailable Preferred Language Unknown Marital Status Unknown Cheondoism Affiliation Unknown Race Unknown Ethnic Group Unknown Author Organization [place] [facility] Address [address] [id number] Phone Social History date description facility [id number]
--- OUTSIDE RECORDS SUMMARY | 2020-08-04 20:43 | EXTERNAL MEDICAL SUMMARY RPT | Continuity of Care Document ---
:1995 Demographics Phone Unavailable Preferred Language Unknown Marital Status Unknown Mandaeism Affiliation Unknown Race Unknown Ethnic Group Unknown Author Organization [facility] Address [address] [phone] Phone Social History date description facility [id number]
--- NOTE | 2020-08-04 21:35 | ED Physician Documentation ---
PD HPI GI BLEED - Stated complaint Stated Complaint: BLOODY STOOL/HEADACHE - Chief complaint Chief Complaint: Abd Pain - History obtained from History obtained from: Patient - History of Present Illness Timing - onset: Enter time (1930), Today Timing - duration: Hours Timing - details: Abrupt onset, Now resolved Associated symptoms: BRBPR, Maroon stool, Constipation, Loss of appetite. No: Vomiting, Coffee ground emesis, Hematemesis Contributing factors: Other (chronic constipation) Improved by: BM Similar symptoms before: Diagnosis (hemorrhoids and fissures) Recently seen: Not recently seen - Additional information Additional information: 24 y/o transitioning, identified as male has developed BRBPR after constipation similar to what has happened all his life and this was accompanied by a large volume of maroon stool. This was different for the patient and he has come in for blood counts. He has his usual amount of lower abdominal pain unchanged and related to constipation. Reports BRBPR with pink and red on the tissue. No further output since. Review of Systems Constitutional: denies: Fever, Chills Eyes: denies: Decreased vision Ears: denies: Ear pain Nose: denies: Rhinorrhea / runny nose, Congestion Throat: denies: Sore throat Cardiac: denies: Chest pain / pressure Respiratory: denies: Dyspnea, Cough GI: reports: Abdominal Pain, Constipation, Bloody / black stool. 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 : None HEENT: Chronic vision loss, Other Psych: Depression, Anxiety, Schizophrenia, Panic attacks Musculoskeletal: None Derm: None - Past Surgical History Past Surgical History: Yes General: Cholecystectomy, Colonoscopy HEENT: Myringotomy (tubes), Other - Present Medications Home Medications: Ambulatory Orders Medication Instructions Recorded Confirmed Prazosin [Minipress] 2 mg PO QPM 07/23/18 06/18/20 Sertraline HCl 200 mg PO DAILY 08/24/18 06/18/20 Acetaminophen [Tylenol] 650 mg PO Q6H PRN #50 tablet 08/29/18 06/18/20 Ibuprofen [Advil] 600 mg PO Q6H PRN #50 tablet 08/29/18 06/18/20 Meloxicam [Mobic] 15 mg PO DAILY 12/19/18 06/18/20 Testosterone Cypionate 200 mg SQ ONCE 04/18/19 06/18/20 hydrOXYzine HCL [Hydroxyzine HCl] 25 mg PO QID PRN 03/05/20 06/18/20 polyethylene glycoL 3350 [Miralax] 1.5 cap PO PRN PRN 03/05/20 06/18/20 Atomoxetine HCl [Strattera] 40 mg PO DAILY PM #20 capsule 04/11/20 06/18/20 Pantoprazole Sodium [Protonix] 20 mg PO DAILY #30 06/18/20 Sucralfate [Carafate] 1 gm PO ACHS #60 tablet 06/18/20 clonazePAM [KlonoPIN] 0.5 mg PO DAILY 06/18/20 06/18/20 - Allergies Allergies/Adverse Reactions: Allergies Allergy/AdvReac Type Severity Reaction Status Date / Time caterpillars Allergy Unknown Uncoded 08/04/20 20:27 dairy products AdvReac bloating, Uncoded 08/04/20 20:27 constipation enriched flour products AdvReac Nausea Uncoded 08/04/20 20:27 sedatives AdvReac "cause Uncoded 08/04/20 20:27 panic" - Social History Does the pt smoke?: No Smoking Status: Never smoker Does the pt drink ETOH?: No Does the pt have substance abuse?: No - Immunizations Immunizations are current?: Yes - POLST Patient has POLST: No PD ED PE NORMAL - Vitals Vital signs reviewed: Yes (normal ) - General General: Alert and oriented X 3, No acute distress, Well developed/nourished - HEENT HEENT: Atraumatic, PERRL, EOMI - Neck Neck: Supple, no meningeal sign, No bony TTP - Cardiac Cardiac: RRR, No murmur - Respiratory Respiratory: No respiratory distress, Clear bilaterally - Abdomen Abdomen: Normal bowel sounds, Soft, Non tender, Non distended, No organomegaly - Back Back: No CVA TTP, No spinal TTP - Derm Derm: Normal color, Warm and dry, No rash - Extremities Extremities: No deformity, No edema - Neuro Neuro: Alert and oriented X 3, pc installation engineer 2-12 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, No motor deficit, No sensory deficit, Normal speech Eye Opening: Spontaneous Motor: Obeys Commands Verbal: Oriented GCS Score: 15 - Psych Psych: Normal mood, Normal affect Results - Vitals Vitals: Vital Signs - 24 hr 08/04/20 08/04/20 20:20 20:51 Temperature 36.0 C L Heart Rate 97 92 Respiratory 16 16 Rate Blood Pressure 137/84 H 132/94 H O2 Saturation 98 98 Oxygen O2 Source Room air - Labs Labs: Laboratory Tests 08/04/20 08/04/20 21:43 21:43 WBC 11.4 H RBC 5.41 H Hgb 16.1 H Hct 46.5 MCV 86.0 MCH 29.8 MCHC 34.6 RDW 12.7 Plt Count 228 MPV 9.3 Neut # (Auto) 7.2 H Lymph # (Auto) 3.2 [place] # (Auto) 0.7 Eos # (Auto) 0.2 Baso # (Auto) 0.1 Absolute Nucleated RBC 0.00 Nucleated RBC % 0.0 Sodium 139 Potassium 3.8 Chloride 102 Carbon Dioxide 25 Anion Gap 12.0 BUN 17 Creatinine 0.8 Estimated GFR (MDRD) 89 Glucose 108 H Calcium 9.5 Total Bilirubin 0.5 AST 19 ALT 20 Alkaline Phosphatase 72 Total Protein 7.6 Albumin 4.6 Globulin 3.0 Albumin/Globulin Ratio 1.5 Lipase 28 PD MEDICAL DECISION MAKING - ED course Complexity details: reviewed results, re-evaluated patient, considered differential, d/w patient ED course: 24-year-old transitioning male with rectal bleeding has had similar symptoms throughout his life and he became concerned with a different color to the stool today. Blood counts are normal and high as usual for the patient. His BUN was normal as well. I suspect his bleeding is related to what it has been previously with hemorrhoids and fissures. I have recommended the patient return to the emergency department should he become lightheaded have vomiting of blood or coffee-ground. Departure - Departure Disposition: 01 Home, Self Care Clinical Impression: GI bleeding Qualifiers: GI bleed type/associated pathology: anorectal hemorrhage Qualified Code(s): K62.5 - Hemorrhage of anus and rectum Instructions: ED Hematochezia Stable Follow-Up: Erin De Leon DO [Primary Care Provider] -
[2020-08-04 21:49] LABS: BASOPHILS # (AUTO) 0.1 10^3/uL (0.0-0.1); BASOPHILS % (AUTO) 0.5 %; EOSINOPHILS # (AUTO) 0.2 10^3/uL (0.0-0.7); EOSINOPHILS % (AUTO) 1.6 %; HCT - HEMATOCRIT 46.5 % (37.0-47.0); HGB - HEMOGLOBIN 16.1 g/dL (12.0-16.0); LYMPHOCYTES # (AUTO) 3.2 10^3/uL (1.5-3.5); LYMPHOCYTES % (AUTO) 28.2 %; MEAN CORPUSCULAR HEMOGLOBIN 29.8 pg (27.0-31.0); MEAN CORPUSCULAR HGB CONC 34.6 g/dL (32.0-36.0); MEAN PLATELET VOLUME 9.3 fL (7.9-10.8); MONOCYTES # (AUTO) 0.7 10^3/uL (0.0-1.0); MONOCYTES % (AUTO) 5.9 %; NEUTROPHILS # (AUTO) 7.2 10^3/uL (1.5-6.6); NEUTROPHILS % (AUTO) 63.4 %; PLT - PLATELET COUNT 228 10^3/uL (130-450); RED BLOOD COUNT 5.41 10^6/uL (4.20-5.40); RED CELL DISTRIBUTION WIDTH 12.7 % (12.0-15.0); WHITE BLOOD COUNT 11.4 x10^3/uL (4.8-10.8)
[2020-08-04 22:01] LABS: ALBUMIN 4.6 g/dL (3.2-5.5); ALBUMIN/GLOBULIN RATIO 1.5 (1.0-2.2); BILIRUBIN,TOTAL 0.5 mg/dL (0.2-1.0); CALCIUM 9.5 mg/dL (8.5-10.3); CREATININE 0.8 mg/dL (0.4-1.0); POTASSIUM 3.8 mmol/L (3.5-5.0); TOTAL PROTEIN 7.6 g/dL (6.7-8.2)
[2020-08-04 22:17] VITALS: BP 132/86
== END 2020-08-04 22:15 | disposition home or self-care (01) ==
LOC: ED 20:16
DX: K62.5 Hemorrhage of anus and rectum (principal)
CPT/HCPCS: 36415; 80053; 81001; 81003; 83690; 85025; 87086; 99282; 99283

== ENCOUNTER 2020-08-09 12:48 | Outpatient (CLI) | payer MEDICAID | END 2020-08-09 12:49 | disposition home or self-care (01) | LOC: COV 12:48 | PROVIDERS: ATTEND Surgery | DX: Z01.812 Encounter for preprocedural laboratory examination (principal); K21.9 Gastro-esophageal reflux disease without esophagitis; F43.10 Post-traumatic stress disorder, unspecified; Z87.820 Personal history of traumatic brain injury; Z20.822 Contact with and (suspected) exposure to COVID-19 ==

== ENCOUNTER 2020-08-13 09:55 | Day surgery (SDC) | payer MEDICAID ==
[2020-08-13] MEDS ORDERED: LACTATED RINGERS 1,000 ML IV ONE ×2 (10:22→12:45)
--- NOTE | 2020-08-13 11:06 | ANESTHESIA ---
Pre-Anesthesia VS, & Labs - Diagnosis reflux - Procedure EGD Vital Signs: Temp Pulse Resp BP Pulse Ox 36.1 C L 126 H 16 141/110 H 96 08/13/20 10:24 08/13/20 10:24 08/13/20 10:24 08/13/20 10:24 08/13/20 10:24 Height: 5 ft 1 in Weight (kg): 99.9 kg Body Mass Index: 41.5 BMI Classification: Morbidly Obese - NPO >8 hours - Is Patient ?: Waiver signed - Lab Results Lab results reviewed: Yes Home Medications and Allergies Prazosin [Minipress] 2 mg PO QPM 07/23/18 Sertraline HCl 200 mg PO DAILY 08/24/18 Meloxicam [Mobic] 15 mg PO DAILY 12/19/18 Testosterone Cypionate 200 mg SQ ONCE 04/18/19 hydrOXYzine HCL [Hydroxyzine HCl] 25 mg PO QID PRN 03/05/20 polyethylene glycoL 3350 [Miralax] 1.5 cap PO PRN PRN 03/05/20 clonazePAM [KlonoPIN] 0.5 mg PO DAILY 06/18/20 Allergies/Adverse Reactions: Allergies Allergy/AdvReac Type Severity Reaction Status Date / Time caterpillars Allergy Unknown Uncoded 08/04/20 20:27 dairy products AdvReac bloating, Uncoded 08/04/20 20:27 constipation enriched flour products AdvReac Nausea Uncoded 08/04/20 20:27 sedatives AdvReac "cause Uncoded 08/04/20 20:27 panic" Anes History & Medical History - Anesthetic History Anesthesia Complications: reports: No previous complications Family history of Anesthesia Complications: Denies Family history of Malignant Hyperthermia: Denies - Medical History Cardiovascular: reports: None Pulmonary: reports: Asthma Gastrointestinal: reports: Colon polyps, Other Urinary: reports: None Neuro: reports: None Musculoskeletal: reports: None Endocrine/Autoimmune: reports: None Blood Disorders: reports: None Skin: reports: None Smoking Status: Never smoker - Surgical History General: reports: Cholecystectomy, Colonoscopy Eyes Ears Nose Throat (EENT): reports: Myringotomy (tubes), Other Exam General: Alert, Oriented x3, Cooperative Dental: WNL Mouth Openin Fingerbreadth Neck Mobility: Normal Mallampati classification: II Thyromental Distance: 4-6 cm Respiratory: Lungs clear, Normal breath sounds, No respiratory distress Cardiovascular: Regular rate Neurological: Normal speech Mental/Cognitive Status: Alert/Oriented X3, Normal for patient Cognitive Status: Within normal limits Plan Anesthesia Type: Total IV Consent for Procedure(s) Verified and Reviewed: Yes Code Status: Attempt Resuscitation ASA classification: 2-Mild systemic disease Is this case an emergency?: No
[2020-08-13] MEDS ORDERED: PROPOFOL 200 MG/20 ML VIAL IVP ONE (11:36)
[2020-08-13] MEDS ORDERED: MIDAZOLAM 2 MG/2 ML VIAL ONE (11:36)
[2020-08-13] MEDS ORDERED: LIDOCAINE-MPF 2% 5 ML VIAL ONE (11:37)
[2020-08-13] MEDS ORDERED: fentaNYL 100 MCG/2 ML VIAL ONE (11:37)
[2020-08-13 13:22] VITALS: BP 125/82
--- NOTE | 2020-08-13 17:01 | ANESTHESIA POST OP EVALUATION ---
Anesthesia Post Eval - Post Anesthesia Eval Vitals: Last Vital Signs Temp 36.5 C 08/13/20 13:15 Pulse 89 08/13/20 13:15 Resp 16 08/13/20 13:15 BP 125/82 H 08/13/20 13:15 Pulse Ox 98 08/13/20 13:15 CV Function Including HR & BP: Stable Pain Control: Satisfactory Nausea & Vomiting: Negative Mental Status: Baseline Respiratory Status: Airway Patent Hydration Status: Satisfactory Anesthesia Complications: None
== END 2020-08-13 09:56 | disposition home or self-care (01) ==
LOC: SDS 09:55
PROVIDERS: ATTEND Surgery
PROC: 0DB78ZX Excision of Stomach, Pylorus, Via Natural or Artificial Opening Endoscopic, Diagnostic (ICD-10-PCS; principal; 2020-08-13 11:00)
DX: K21.00 Gastro-esophageal reflux disease with esophagitis, without bleeding (principal); K29.50 Unspecified chronic gastritis without bleeding; K59.00 Constipation, unspecified; R15.9 Full incontinence of feces; E66.01 Morbid (severe) obesity due to excess calories; Z68.41 Body mass index [BMI] 40.0-44.9, adult; F43.10 Post-traumatic stress disorder, unspecified; F64.0 Transsexualism; Z86.010 Personal history of colon polyps; Z79.899 Other long term (current) drug therapy; Z87.820 Personal history of traumatic brain injury
CPT/HCPCS: 43239; J7120

== ENCOUNTER 2020-10-22 23:20 | Outpatient (CLI) | payer MEDICAID | END 2020-10-22 23:21 | disposition critical access hospital (66) | LOC: EMS 23:20 | DX: Z04.1 Encounter for examination and observation following transport accident (principal); R46.4 Slowness and poor responsiveness; R51.9 Headache, unspecified; M54.5 Low back pain | CPT/HCPCS: A0425; A0427; A0999 ==

== ENCOUNTER 2020-10-22 23:35 | Emergency (ER) | payer MEDICAID ==
[2020-10-22] MEDS ORDERED: SODIUM CHLORIDE 0.9% 1,000 ML IV STA (23:53)
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
[2020-10-22 23:59] LABS: BASOPHILS % (AUTO) 0.4 %; EOSINOPHILS # (AUTO) 0.1 10^3/uL (0.0-0.7); EOSINOPHILS % (AUTO) 1.1 %; HCT - HEMATOCRIT 47.8 % (42.0-52.0); HGB - HEMOGLOBIN 16.8 g/dL (14.0-18.0); LYMPHOCYTES # (AUTO) 2.9 10^3/uL (1.5-3.5); MEAN CORPUSCULAR HEMOGLOBIN 29.2 pg (27.0-31.0); MEAN CORPUSCULAR HGB CONC 35.1 g/dL (32.0-36.0); MEAN CORPUSCULAR VOLUME 83.1 fL (80.0-94.0); MEAN PLATELET VOLUME 9.1 fL (7.4-11.4); MONOCYTES # (AUTO) 0.8 10^3/uL (0.0-1.0); MONOCYTES % (AUTO) 6.9 %; NEUTROPHILS # (AUTO) 7.2 10^3/uL (1.5-6.6); NEUTROPHILS % (AUTO) 65.1 %; PLT - PLATELET COUNT 223 10^3/uL (130-450); RED BLOOD COUNT 5.75 10^6/uL (4.70-6.10); RED CELL DISTRIBUTION WIDTH 12.7 % (12.0-15.0); WHITE BLOOD COUNT 11.1 x10^3/uL (4.8-10.8)
[2020-10-23 00:05] LABS: INR 1.2 (0.8-1.2); PT - PROTHROMBIN TIME 12.9 secs (9.9-12.6)
[2020-10-23 00:09] LABS: ALBUMIN 4.7 g/dL (3.2-5.5); ALBUMIN/GLOBULIN RATIO 1.5 (1.0-2.2); ALKALINE PHOSPHATASE 61 IU/L (42-121); ALT ALANINE AMINOTRANSFERASE 24 IU/L (10-60); AST ASPARTATE AMINOTRANSFERASE 22 IU/L (10-42); BILIRUBIN,TOTAL 0.7 mg/dL (0.2-1.0); BUN - BLOOD UREA NITROGEN 11 mg/dL (6-20); CALCIUM 9.8 mg/dL (8.5-10.3); CARBON DIOXIDE - CO2 25 mmol/L (21-32); CHLORIDE 100 mmol/L (101-111); CREATININE 0.8 mg/dL (0.6-1.2); ETOH - ETHANOL < 5.0 mg/dL; GFR - MDRD 119 (>89); GLUCOSE 101 mg/dL (70-100); LIPASE 26 U/L (22-51); POTASSIUM 4.2 mmol/L (3.5-5.0); SODIUM 137 mmol/L (135-145); TOTAL PROTEIN 7.9 g/dL (6.7-8.2)
[2020-10-23] MEDS ORDERED: ACETAMINOPHEN 325 MG TABLET PO STA (02:08)
[2020-10-23] MEDS ORDERED: IBUPROFEN 600 MG TABLET PO STA (02:08)
[2020-10-23 02:38] VITALS: BP 135/80
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
== END 2020-10-23 02:38 | disposition home or self-care (01) ==
LOC: EDSEX → ED 23:35 → MERGE 23:35 → ED 10-23 02:38
DX: S09.90XA Unspecified injury of head, initial encounter (principal); S83.92XA Sprain of unspecified site of left knee, initial encounter; S40.819A Abrasion of unspecified upper arm, initial encounter; S80.819A Abrasion, unspecified lower leg, initial encounter; M54.5 Low back pain; V28.4XXA Motorcycle driver injured in noncollision transport accident in traffic accident, initial encounter; Y92.410 Unspecified street and highway as the place of occurrence of the external cause
CPT/HCPCS: 36415; 70450; 72125; 73562; 80053; 80320; 83690; 85025; 85610; 99282; 99284; A9270

== ENCOUNTER 2020-11-08 16:31 | Outpatient (CLI) | payer MEDICAID | END 2020-11-08 23:59 | disposition home or self-care (01) | LOC: LAB.N 16:31 | PROVIDERS: ATTEND Nurse Practitioner | DX: B34.9 Viral infection, unspecified (principal); Z20.822 Contact with and (suspected) exposure to COVID-19 ==

== ENCOUNTER 2020-11-26 08:00 | Outpatient (CLI) | payer MEDICAID ==
[2020-11-26 18:15] LABS: BASOPHILS % (AUTO) 0.3 %; EOSINOPHILS # (AUTO) 0.2 10^3/uL (0.0-0.7); EOSINOPHILS % (AUTO) 2.7 %; HCT - HEMATOCRIT 48.6 % (37.0-47.0); HGB - HEMOGLOBIN 16.5 g/dL (12.0-16.0); LYMPHOCYTES # (AUTO) 2.5 10^3/uL (1.5-3.5); LYMPHOCYTES % (AUTO) 28.3 %; MEAN CORPUSCULAR HEMOGLOBIN 29.3 pg (27.0-31.0); MEAN CORPUSCULAR VOLUME 86.2 fL (81.0-99.0); MEAN PLATELET VOLUME 9.7 fL (7.9-10.8); MONOCYTES # (AUTO) 0.5 10^3/uL (0.0-1.0); MONOCYTES % (AUTO) 5.5 %; NEUTROPHILS # (AUTO) 5.5 10^3/uL (1.5-6.6); NEUTROPHILS % (AUTO) 62.7 %; PLT - PLATELET COUNT 242 10^3/uL (130-450); RED BLOOD COUNT 5.64 10^6/uL (4.20-5.40); RED CELL DISTRIBUTION WIDTH 13.4 % (12.0-15.0); WHITE BLOOD COUNT 8.8 x10^3/uL (4.8-10.8)
== END 2020-11-26 23:59 | disposition home or self-care (01) ==
LOC: LAB.WCP 08:00
PROVIDERS: ATTEND Family Medicine
DX: Z79.890 Hormone replacement therapy (principal)
CPT/HCPCS: 36415; 81599; 82670; 84402; 85025

== ENCOUNTER 2021-03-26 15:23 | Outpatient (CLI) | payer MEDICAID ==
[2021-03-26 17:55] LABS: BASOPHILS # (AUTO) 0.1 10^3/uL (0.0-0.1); BASOPHILS % (AUTO) 0.6 %; EOSINOPHILS # (AUTO) 0.2 10^3/uL (0.0-0.7); EOSINOPHILS % (AUTO) 2.2 %; HCT - HEMATOCRIT 44.2 % (37.0-47.0); HGB - HEMOGLOBIN 15.4 g/dL (12.0-16.0); LYMPHOCYTES # (AUTO) 2.6 10^3/uL (1.5-3.5); LYMPHOCYTES % (AUTO) 32.1 %; MEAN CORPUSCULAR HEMOGLOBIN 30.3 pg (27.0-31.0); MEAN CORPUSCULAR HGB CONC 34.8 g/dL (32.0-36.0); MEAN CORPUSCULAR VOLUME 86.8 fL (81.0-99.0); MEAN PLATELET VOLUME 9.9 fL (7.9-10.8); MONOCYTES # (AUTO) 0.4 10^3/uL (0.0-1.0); MONOCYTES % (AUTO) 5.3 %; NEUTROPHILS # (AUTO) 4.8 10^3/uL (1.5-6.6); NEUTROPHILS % (AUTO) 59.4 %; PLT - PLATELET COUNT 253 10^3/uL (130-450); RED BLOOD COUNT 5.09 10^6/uL (4.20-5.40); RED CELL DISTRIBUTION WIDTH 12.7 % (12.0-15.0); WHITE BLOOD COUNT 8.1 x10^3/uL (4.8-10.8)
[2021-03-26 18:08] LABS: ALBUMIN 4.7 g/dL (3.2-5.5); ALBUMIN/GLOBULIN RATIO 1.6 (1.0-2.2); BILIRUBIN,TOTAL 0.6 mg/dL (0.2-1.0); CALCIUM 9.5 mg/dL (8.5-10.3); CREATININE 0.7 mg/dL (0.4-1.0); POTASSIUM 3.9 mmol/L (3.5-5.0); TOTAL PROTEIN 7.7 g/dL (6.7-8.2)
== END 2021-03-26 23:59 | disposition home or self-care (01) ==
LOC: LAB.WCP 15:23
PROVIDERS: ATTEND Family Medicine
DX: D75.1 Secondary polycythemia (principal); Z79.890 Hormone replacement therapy
CPT/HCPCS: 36415; 80053; 81599; 82668; 84402; 84403; 85025

== ENCOUNTER 2021-07-22 09:12 | Outpatient (CLI) | payer MEDICAID | END 2021-07-22 09:13 | disposition critical access hospital (66) | LOC: EMS 09:12 | DX: R42 Dizziness and giddiness (principal); H93.8X3 Other specified disorders of ear, bilateral | CPT/HCPCS: A0425; A0429; A0999 ==

== ENCOUNTER 2021-07-22 09:32 | Emergency (ER) | payer MEDICAID ==
--- NOTE | 2021-07-22 11:12 | ED Physician Documentation ---
PD HPI HEENT - Stated complaint Stated Complaint: DIZZY/LIGHT HEADED - Chief complaint Chief Complaint: Neuro - History obtained from History obtained from: Patient (goes by "Miah") - History of Present Illness Timing - onset: How many days ago (2) Timing - duration: Days (2) Timing - details: Abrupt onset (onset of vertigo after just bending over and t hen getting back up again. Severe vertigo with nausea and unsteady walking. IMproved with resting, but has had persistent symptoms the past couple days when moves head/sits up. Causes nausea with vomiting.), Still present Location: Left ear (lessened hearing and has feeling of fluid behind ear/inside head with movement. SOMe blurring left eye vision. NO loss of vision. No focal weaknesses. fine motor with hands is okay. Feels unsteady walking due to vertigo.), Other (vertigo with horizontal spinning.) Associated symptoms: Headache. No: Fever, Congestion, Facial swelling, Cough Similar symptoms before: No diagnosis (has had episodes of positional vertigo in the past, but usually clears within hours/day.) Recently seen: Not recently seen Review of Systems Constitutional: denies: Fever, Chills Eyes: reports: Decreased vision (mostly left eye blurry at times.). denies: Loss of vision, Photophobia Ears: denies: Loss of hearing (but feels it muffled on left the past few days.) Nose: reports: Sinus pressure / pain. denies: Rhinorrhea / runny nose, Congestion Throat: denies: Dental pain / toothache, Sore throat, Swollen tonsils Cardiac: denies: Chest pain / pressure, Palpitations Respiratory: denies: Dyspnea, Cough GI: reports: Nausea, Vomiting. denies: Abdominal Pain, Constipation, Diarrhea Neurologic: denies: Focal weakness, Numbness, Altered mental status, Head injury, LOC PD PAST MEDICAL HISTORY - Past Medical History Cardiovascular: None Respiratory: Asthma Neuro: None Endocrine/Autoimmune: None GI: GERD, Colon polyps, Other [employer]: None : None HEENT: Chronic vision loss, Other Psych: Schizophrenia, Depression, Anxiety, Panic attacks Musculoskeletal: None Derm: None - Past Surgical History Past Surgical History: No General: Cholecystectomy, Colonoscopy HEENT: Myringotomy (tubes), Other - Present Medications Home Medications: Ambulatory Orders Medication Instructions Recorded Confirmed Prazosin [Minipress] 2 mg PO QPM 07/23/18 08/05/20 Sertraline HCl 200 mg PO DAILY 08/24/18 08/05/20 Acetaminophen [Tylenol] 650 mg PO Q6H PRN #50 tablet 08/29/18 08/05/20 Ibuprofen [Advil] 600 mg PO Q6H PRN #50 tablet 08/29/18 08/05/20 Meloxicam [Mobic] 15 mg PO DAILY 12/19/18 08/05/20 Testosterone Cypionate 200 mg SQ ONCE 04/18/19 08/05/20 hydrOXYzine HCL [Hydroxyzine HCl] 25 mg PO QID PRN 03/05/20 08/05/20 polyethylene glycoL 3350 [Miralax] 1.5 cap PO PRN PRN 03/05/20 08/05/20 Atomoxetine HCl [Strattera] 40 mg PO DAILY PM #20 capsule 04/11/20 08/05/20 Pantoprazole Sodium [Protonix] 20 mg PO DAILY #30 06/18/20 08/05/20 Sucralfate [Carafate] 1 gm PO ACHS #60 tablet 06/18/20 08/05/20 clonazePAM [KlonoPIN] 0.5 mg PO DAILY 06/18/20 08/05/20 Atomoxetine HCl [Strattera] 40 mg PO DAILY 10/23/20 10/23/20 Pantoprazole [Protonix] 40 mg PO DAILY PM 10/23/20 10/23/20 Prazosin [Minipress] 1 mg PO DAILY 10/23/20 10/23/20 Sertraline [Zoloft] 100 mg PO DAILY 10/23/20 10/23/20 Sucralfate [Carafate] 1 tab PO QID 10/23/20 10/23/20 Testosterone [Androderm] 10/23/20 hydrOXYzine HCL [Hydroxyzine HCl] 25 mg PO DAILY 10/23/20 10/23/20 Cetirizine [ZyrTEC] 10 mg PO BID #15 tablet 07/22/21 Meclizine HCl [Motion Sickness] 25 mg PO Q6H PRN #30 tablet 07/22/21 dexAMETHasone [Decadron] 4 mg PO DAILY #5 tablet 07/22/21 - Allergies Allergies/Adverse Reactions: Allergies Allergy/AdvReac Type Severity Reaction Status Date / Time caterpillars Allergy Unknown Uncoded 07/22/21 09:40 dairy products AdvReac bloating, Uncoded 07/22/21 09:40 constipation enriched flour products AdvReac Nausea Uncoded 07/22/21 09:40 sedatives AdvReac "cause Uncoded 07/22/21 09:40 panic" - Social History Does the pt smoke?: No Smoking Status: Never smoker Does the pt drink ETOH?: No Does the pt have substance abuse?: No - Immunizations Immunizations are current?: Yes - POLST Patient has POLST: No PD ED PE NORMAL - Vitals Vital signs reviewed: Yes - General General: Alert and oriented X 3, No acute distress, Well developed/nourished (bearded hairy face.) - HEENT HEENT: Atraumatic, PERRL, EOMI (with fast component nystagmus to the left. ), Pharynx benign. No: Moist mucous membranes - Neck Neck: Supple, no meningeal sign, No adenopathy, No bruit - Cardiac Cardiac: RRR (mild tachycardia), No murmur - Respiratory Respiratory: No respiratory distress, Clear bilaterally - Abdomen Abdomen: Normal bowel sounds, Soft - Derm Derm: Normal color, Warm and dry - Extremities Extremities: Normal ROM s pain - Neuro Neuro: Alert and oriented X 3, what job titles mean 2-12 intact, No motor deficit, No sensory deficit, Normal speech Results - Vitals Vitals: Vital Signs - 24 hr 07/22/21 07/22/21 07/22/21 09:40 11:43 13:00 Temperature 37.2 C Heart Rate 112 H 80 Respiratory 19 20 17 Rate Blood Pressure 134/78 H 120/90 H O2 Saturation 99 99 Oxygen O2 Source Room air - Labs Labs: Laboratory Tests 07/22/21 07/22/21 07/22/21 12:01 12:01 12:01 WBC 9.9 RBC 4.48 Hgb 14.0 Hct 39.4 MCV 87.9 MCH 31.3 H MCHC 35.5 RDW 12.0 Plt Count 246 MPV 9.1 Neut # (Auto) 7.2 H Lymph # (Auto) 2.1 [place] # (Auto) 0.4 Eos # (Auto) 0.2 Baso # (Auto) 0.0 Absolute Nucleated RBC 0.00 Nucleated RBC % 0.0 Sodium 137 Potassium 4.0 Chloride 105 Carbon Dioxide 23 Anion Gap 9.0 BUN 10 Creatinine 0.5 Estimated GFR (MDRD) 152 Glucose 91 Calcium 9.2 Total Bilirubin 0.8 AST 17 ALT 20 Alkaline Phosphatase 50 Total Protein 7.2 Albumin 4.3 Globulin 2.9 Albumin/Globulin Ratio 1.5 Lipase 27 TSH 0.44 PD MEDICAL DECISION MAKING - ED course Complexity details: reviewed results (labs are okay. Shared decision that imaging does not seem needed. ), re-evaluated patient (improved vertigo and able to move head better.), considered differential (positional vertigo, improved with holding still. SOme feeling hearing less on left. No focal weaknesses. frontal and left pressure headache. ), d/w patient Departure - Departure Disposition: 01 Home, Self Care Clinical Impression: Vertigo, peripheral Qualifiers: Laterality: unspecified laterality Qualified Code(s): H81.399 - Other peripheral vertigo, unspecified ear Condition: Stable Record reviewed to determine appropriate education?: Yes Instructions: ED Vertigo Unspecified Prescriptions: dexAMETHasone [Decadron] 4 mg PO DAILY #5 tablet Meclizine HCl [Motion Sickness] 25 mg PO Q6H PRN #30 tablet PRN Reason: Vertigo Cetirizine [ZyrTEC] 10 mg PO BID #15 tablet Comments: Use the cetirizine antihistamine and Decadron steroid as directed for presumed congestion and inflammation through the inner ear causing your vertigo. Meclizine 25 mg every 6-8 hours if needed for vertigo itself. Recheck if not improved well over the next 2 to 3 days. I transmitted your prescriptions to [facility] pharmacy. Discharge Date/Time: 07/22/21 13:11
[2021-07-22] MEDS ORDERED: MECLIZINE 12.5 MG TABLET PO STA (11:49)
[2021-07-22] MEDS ORDERED: DEXAMETHASONE 10 MG/ML VIAL IVP STA (11:49)
[2021-07-22] MEDS ORDERED: diazePAM INJ 5 MG/ML SYRINGE IVP STA (11:49)
[2021-07-22] MEDS ORDERED: SODIUM CHLORIDE 0.9% 1,000 ML IV STA (11:49)
[2021-07-22] MEDS ORDERED: ONDANSETRON 4 MG/2 ML VIAL IVP STA (11:50)
[2021-07-22 12:06] LABS: BASOPHILS % (AUTO) 0.4 %; EOSINOPHILS # (AUTO) 0.2 10^3/uL (0.0-0.7); EOSINOPHILS % (AUTO) 1.9 %; HCT - HEMATOCRIT 39.4 % (37.0-47.0); LYMPHOCYTES # (AUTO) 2.1 10^3/uL (1.5-3.5); LYMPHOCYTES % (AUTO) 21.3 %; MEAN CORPUSCULAR HEMOGLOBIN 31.3 pg (27.0-31.0); MEAN CORPUSCULAR HGB CONC 35.5 g/dL (32.0-36.0); MEAN CORPUSCULAR VOLUME 87.9 fL (81.0-99.0); MEAN PLATELET VOLUME 9.1 fL (7.9-10.8); MONOCYTES # (AUTO) 0.4 10^3/uL (0.0-1.0); MONOCYTES % (AUTO) 3.6 %; NEUTROPHILS # (AUTO) 7.2 10^3/uL (1.5-6.6); NEUTROPHILS % (AUTO) 72.5 %; PLT - PLATELET COUNT 246 10^3/uL (130-450); RED BLOOD COUNT 4.48 10^6/uL (4.20-5.40); WHITE BLOOD COUNT 9.9 x10^3/uL (4.8-10.8)
[2021-07-22 12:22] LABS: ALBUMIN 4.3 g/dL (3.2-5.5); ALBUMIN/GLOBULIN RATIO 1.5 (1.0-2.2); BILIRUBIN,TOTAL 0.8 mg/dL (0.2-1.0); CALCIUM 9.2 mg/dL (8.5-10.3); CREATININE 0.5 mg/dL (0.4-1.0); TOTAL PROTEIN 7.2 g/dL (6.7-8.2)
[2021-07-22 13:11] VITALS: BP 120/90
== END 2021-07-22 13:11 | disposition home or self-care (01) ==
LOC: EDSEX → EDUNIT# → ED 09:32
DX: H81.399 Other peripheral vertigo, unspecified ear (principal)
CPT/HCPCS: 36415; 80053; 83690; 84443; 85025; 96374; 99282; 99284; A9270

== ENCOUNTER 2022-02-18 15:31 | Outpatient (CLI) | payer MEDICAID | END 2022-02-18 15:32 | disposition critical access hospital (66) | LOC: EMS 15:31 | DX: R45.851 Suicidal ideations (principal); R45.850 Homicidal ideations | CPT/HCPCS: A0425; A0429; A0999 ==

== ENCOUNTER 2022-02-18 15:51 | Emergency (ER) | payer MEDICAID ==
--- NOTE | 2022-02-18 16:09 | ED Physician Documentation ---
History of Present Illness - Stated complaint Stated Complaint: SI - Additonal information Additional information: 26-year-old female who is transitioning to male presents emergency department for evaluation of SI and HI. He reports that he is always struggled with anxiety, depression and PTSD. About 3 weeks ago he began having worsening symptoms. He reports that they have begun to investigate his stepbrother and the of his best friend 3 years ago. He reports that he is having homicidal thoughts towards his stepbrother and he starting to feel out of control and unsafe at home. He reports that he would take a whole lot of Benadryl and then go into the bathtub so that there would not be much mess to clean up if he were to . He is not sure if you would enact to this plan. He has been hospitalized before at [facility] as well as [place]. Review of Systems Constitutional: reports: Reviewed and negative Nose: reports: Reviewed and negative Throat: reports: Reviewed and negative Cardiac: reports: Reviewed and negative Respiratory: reports: Reviewed and negative GI: reports: Reviewed and negative : reports: Reviewed and negative Psychiatric: reports: Homicidal. 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 : None HEENT: Chronic vision loss, Other Psych: Schizophrenia, Depression, Anxiety, Panic attacks Musculoskeletal: None Derm: None - Past Surgical History Past Surgical History: No General: Cholecystectomy, Colonoscopy HEENT: Myringotomy (tubes), Other - Present Medications Home Medications: Ambulatory Orders Medication Instructions Recorded Confirmed hydrOXYzine HCL [Hydroxyzine HCl] 25 mg PO QID PRN 03/05/20 02/18/22 Atomoxetine HCl [Strattera] 40 mg PO DAILY 10/23/20 02/18/22 Sertraline [Zoloft] 100 mg PO BID 10/23/20 02/18/22 Sucralfate [Carafate] 1 tab PO QID PRN 10/23/20 02/18/22 Testosterone [Androderm] 1 each TD DAILY 02/18/22 02/18/22 - Allergies Allergies/Adverse Reactions: Allergies Allergy/AdvReac Type Severity Reaction Status Date / Time lidocaine AdvReac Anxiety Verified 02/18/22 16:01 caterpillars Allergy Unknown Uncoded 02/18/22 16:01 dairy products AdvReac bloating, Uncoded 02/18/22 16:01 constipation enriched flour products AdvReac Nausea Uncoded 02/18/22 16:01 sedatives AdvReac "cause Uncoded 02/18/22 16:01 panic" - Social History Does the pt smoke?: No Smoking Status: Never smoker Does the pt drink ETOH?: No Does the pt have substance abuse?: No - Immunizations Immunizations are current?: Yes - POLST Patient has POLST: No PD ED PE NORMAL - General General: Alert and oriented X 3, No acute distress - HEENT HEENT: PERRL - Cardiac Cardiac: RRR, No murmur - Respiratory Respiratory: No respiratory distress - Abdomen Abdomen: Normal bowel sounds, Soft - Derm Derm: Normal color, Warm and dry - Neuro Neuro: Alert and oriented X 3, 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 Forthcoming with data and history. Reports thoughts of harm towards stepbrother. Reports thoughts of self-harm by overdosing on Benadryl) Results - Vitals Vitals: Vital Signs - 24 hr 02/18/22 02/18/22 16:01 19:42 Temperature 37.1 C 36.2 C L Heart Rate 83 88 Respiratory 18 18 Rate Blood Pressure 152/91 H 129/85 H O2 Saturation 98 99 Oxygen O2 Source Room air - Labs Labs: Laboratory Tests 02/18/22 02/18/22 02/18/22 16:11 16:11 16:11 WBC 8.8 RBC 4.62 Hgb 13.9 Hct 40.9 MCV 88.5 MCH 30.1 MCHC 34.0 RDW 12.4 Plt Count 297 MPV 9.3 Neut # (Auto) 5.4 Lymph # (Auto) 2.7 [place] # (Auto) 0.4 Eos # (Auto) 0.2 Baso # (Auto) 0.0 Absolute Nucleated RBC 0.00 Nucleated RBC % 0.0 Sodium 140 Potassium 4.4 Chloride 101 Carbon Dioxide 28 Anion Gap 11.0 BUN 11 Creatinine 0.7 Estimated GFR (MDRD) 102 Glucose 103 H Calcium 10.0 Total Bilirubin 0.5 AST 16 ALT 15 Alkaline Phosphatase 67 Total Protein 8.2 Albumin 4.6 Globulin 3.6 Albumin/Globulin Ratio 1.3 Lipase 31 TSH 0.80 Urine Color Urine Clarity Urine pH Ur Specific [place] Urine Protein Urine Glucose (UA) Urine Ketones Urine Occult Blood Urine Nitrite Urine Bilirubin Urine Urobilinogen Ur Leukocyte Esterase Ur Microscopic Review Urine Culture Comments Urine HCG, Qual Salicylates < 6.0 Urine Opiates Screen Ur Oxycodone Screen Urine Methadone Screen Ur Propoxyphene Screen Acetaminophen < 10 L Ur Barbiturates Screen Ur Tricyclics Screen Ur Phencyclidine Scrn Ur Amphetamine Screen U Methamphetamines Scrn U Benzodiazepines Scrn Urine Cocaine Screen U Cannabinoids Screen Ethyl Alcohol < 5.0 SARS-CoV-2 (PCR) 02/18/22 02/18/22 02/18/22 16:13 16:13 16:19 WBC RBC Hgb Hct MCV MCH MCHC RDW Plt Count MPV Neut # (Auto) Lymph # (Auto) [place] # (Auto) Eos # (Auto) Baso # (Auto) Absolute Nucleated RBC Nucleated RBC % Sodium Potassium Chloride Carbon Dioxide Anion Gap BUN Creatinine Estimated GFR (MDRD) Glucose Calcium Total Bilirubin AST ALT Alkaline Phosphatase Total Protein Albumin Globulin Albumin/Globulin Ratio Lipase TSH Urine Color YELLOW Urine Clarity CLEAR Urine pH 6.0 Ur Specific [place] 1.010 Urine Protein NEGATIVE Urine Glucose (UA) NEGATIVE Urine Ketones NEGATIVE Urine Occult Blood NEGATIVE Urine Nitrite NEGATIVE Urine Bilirubin NEGATIVE Urine Urobilinogen 0.2 (NORMAL) Ur Leukocyte Esterase NEGATIVE Ur Microscopic Review NOT INDICATED Urine Culture Comments NOT INDICATED Urine HCG, Qual NEGATIVE Salicylates Urine Opiates Screen NEGATIVE Ur Oxycodone Screen NEGATIVE Urine Methadone Screen NEGATIVE Ur Propoxyphene Screen NEGATIVE Acetaminophen Ur Barbiturates Screen NEGATIVE Ur Tricyclics Screen NEGATIVE Ur Phencyclidine Scrn NEGATIVE Ur Amphetamine Screen NEGATIVE U Methamphetamines Scrn NEGATIVE U Benzodiazepines Scrn NEGATIVE Urine Cocaine Screen NEGATIVE U Cannabinoids Screen POSITIVE H Ethyl Alcohol SARS-CoV-2 (PCR) DETECTED A PD MEDICAL DECISION MAKING - ED course Complexity details: reviewed results, re-evaluated patient, considered differential, d/w patient ED course: 26-year-old transgender female to male patient who prefers to be called Mychal comes to the emergency department for evaluation of both suicidal and homicidal ideation. He reports that about 3 weeks ago they reopened the investigation into his best friend's 3 years ago. They now suspected that the patient's stepbrother may have committed murder. He is feeling a lot of rage and anger toward his stepbrother and has thoughts of harming him. Due to worsening anxiety and depression he has also considered suicide by means of ingesting Benadryl in a bathtub in order to prevent mass for his family to clean up. Does have a history of anxiety and depression and has been hospitalized in the past. Here in the emergency department he does present as a voluntary for psychiatric stabilization. The patient was seen by our criminal justice social worker and mental health exam has been completed. Screening CBC and electrolytes were unremarkable. Unfortunately the patient has tested positive for COVID-19 via PCR. Patient states that about 2 months ago he had COVID-19 but is currently asymptomatic without cough, Fever congestion loss of taste smell or myalgias. 2144: Patient has been seen by social work after being medically cleared. They did do a mental health screening exam and he is voluntary for further treatment at a psychiatric facility for management of his suicidal thoughts. I have been told that [facility] will have a bed available tomorrow. The patient was made aware of this and will continue to board in the emergency department until a bed becomes available Departure - Departure Disposition: 65 Psych Hosp/Unit DC/Xfer Clinical Impression: Suicidal ideation
[2022-02-18 16:16] LABS: MUDS CUTOFF CONCENTRATIONS CUTOFF CONC BELOW:
[2022-02-18 16:18] LABS: BASOPHILS % (AUTO) 0.5 %; EOSINOPHILS # (AUTO) 0.2 10^3/uL (0.0-0.7); EOSINOPHILS % (AUTO) 1.9 %; HCT - HEMATOCRIT 40.9 % (37.0-47.0); HGB - HEMOGLOBIN 13.9 g/dL (12.0-16.0); LYMPHOCYTES # (AUTO) 2.7 10^3/uL (1.5-3.5); MEAN CORPUSCULAR HEMOGLOBIN 30.1 pg (27.0-31.0); MEAN CORPUSCULAR VOLUME 88.5 fL (81.0-99.0); MEAN PLATELET VOLUME 9.3 fL (7.9-10.8); MONOCYTES # (AUTO) 0.4 10^3/uL (0.0-1.0); MONOCYTES % (AUTO) 4.9 %; NEUTROPHILS # (AUTO) 5.4 10^3/uL (1.5-6.6); NEUTROPHILS % (AUTO) 60.9 %; PLT - PLATELET COUNT 297 10^3/uL (130-450); RED BLOOD COUNT 4.62 10^6/uL (4.20-5.40); RED CELL DISTRIBUTION WIDTH 12.4 % (12.0-15.0); WHITE BLOOD COUNT 8.8 x10^3/uL (4.8-10.8)
[2022-02-18 16:20] LABS: BILIRUBIN,URINE NEGATIVE (NEGATIVE); GLUCOSE, URINE (UA) NEGATIVE (NEGATIVE); KETONES,URINE (UA) NEGATIVE (NEGATIVE); LEUKOCYTE ESTERASE, URINE NEGATIVE (NEGATIVE); NITRITE,URINE NEGATIVE (NEGATIVE); OCCULT BLOOD,URINE NEGATIVE (NEGATIVE); PROTEIN,URINE NEGATIVE (NEGATIVE); UROBILINOGEN,URINE 0.2 (NORMAL) E.U./dL (NORMAL)
[2022-02-18 16:21] LABS: CLARITY,URINE CLEAR (CLEAR)
[2022-02-18 16:32] LABS: AMPHETAMINE SCREEN,URINE NEGATIVE (NEGATIVE); BARBITURATE SCREEN,UR NEGATIVE (NEGATIVE); BENZODIAZEPINES SCREEN, URINE NEGATIVE (NEGATIVE); COCAINE SCREEN URINE NEGATIVE (NEGATIVE); METHADONE SCREEN, URINE NEGATIVE (NEGATIVE); METHAMPHETAMINES SCREEN, URINE NEGATIVE (NEGATIVE); OPIATE SCREEN, URINE NEGATIVE (NEGATIVE); OXYCODONE SCREEN, URINE NEGATIVE (NEGATIVE); PROPOXYPHENE SCREEN, URINE NEGATIVE (NEGATIVE); THC CANNABINOID SCREEN, URINE POSITIVE (NEGATIVE); TRICYCLIC ANTIDEPRESSANT,URINE NEGATIVE (NEGATIVE)
[2022-02-18 16:34] LABS: ACETAMINOPHEN < 10 ug/mL (10-30); ALBUMIN 4.6 g/dL (3.2-5.5); ALBUMIN/GLOBULIN RATIO 1.3 (1.0-2.2); ALKALINE PHOSPHATASE 67 IU/L (42-121); ALT ALANINE AMINOTRANSFERASE 15 IU/L (10-60); AST ASPARTATE AMINOTRANSFERASE 16 IU/L (10-42); BILIRUBIN,TOTAL 0.5 mg/dL (0.2-1.0); BUN - BLOOD UREA NITROGEN 11 mg/dL (6-20); CARBON DIOXIDE - CO2 28 mmol/L (21-32); CHLORIDE 101 mmol/L (101-111); CREATININE 0.7 mg/dL (0.4-1.0); ETOH - ETHANOL < 5.0 mg/dL; GFR - MDRD 102 (>89); GLUCOSE 103 mg/dL (70-100); LIPASE 31 U/L (22-51); POTASSIUM 4.4 mmol/L (3.5-5.0); SALICYLATE < 6.0 mg/dL; SODIUM 140 mmol/L (135-145); TOTAL PROTEIN 8.2 g/dL (6.7-8.2)
[2022-02-18 19:51] LABS: HCG UR QUAL NEGATIVE
[2022-02-19] MEDS ORDERED: LORazepam 0.5 MG TABLET PO STA (00:06)
[2022-02-19] MEDS ORDERED: LORazepam 1 MG TABLET PO STA (13:07)
[2022-02-19 13:37] VITALS: BP 129/79
== END 2022-02-19 13:50 ==
LOC: EDUNIT# → ED 15:51
DX: R45.851 Suicidal ideations (principal); R45.850 Homicidal ideations; F32.A Depression, unspecified; F41.9 Anxiety disorder, unspecified; F43.10 Post-traumatic stress disorder, unspecified; U07.1 COVID-19
CPT/HCPCS: 36415; 80053; 80306; 80307; 80320; 80329; 81003; 81025; 83690; 84443; 85025; 87635; 99284; 99285; A9270; J8499; 81001; 87086

== ENCOUNTER 2022-03-19 13:28 | Outpatient (CLI) | payer MEDICAID ==
[2022-03-19 15:08] VITALS: BP 132/80
== END 2022-03-19 13:29 | disposition home or self-care (01) ==
LOC: MAC.MOP 13:28
PROVIDERS: ATTEND Physician Assistant
DX: R00.2 Palpitations (principal)
CPT/HCPCS: 93242

== ENCOUNTER 2022-04-07 10:30 | Outpatient (CLI) | payer MEDICAID | END 2022-04-07 10:31 | disposition home or self-care (01) | LOC: MAC.MOP 10:30 | PROVIDERS: ATTEND Physician Assistant | DX: R00.2 Palpitations (principal); I49.1 Atrial premature depolarization; I49.3 Ventricular premature depolarization; Z86.79 Personal history of other diseases of the circulatory system | CPT/HCPCS: 93244 ==

== ENCOUNTER 2022-12-01 17:25 | Outpatient (CLI) | payer MEDICAID | END 2022-12-01 23:59 | disposition critical access hospital (66) | LOC: EMS 17:25 | DX: R10.12 Left upper quadrant pain (principal); R10.11 Right upper quadrant pain; R10.31 Right lower quadrant pain | CPT/HCPCS: A0425; A0429; A0999 ==

== ENCOUNTER 2022-12-01 17:46 | Emergency (ER) | payer MEDICAID ==
[2022-12-01 18:07] VITALS: O2SAT 98
[2022-12-01 18:27] LABS: BASOPHILS % (AUTO) 0.5 %; EOSINOPHILS # (AUTO) 0.1 10^3/uL (0.0-0.7); EOSINOPHILS % (AUTO) 1.1 %; HCT - HEMATOCRIT 44.5 % (37.0-47.0); LYMPHOCYTES # (AUTO) 2.1 10^3/uL (1.5-3.5); LYMPHOCYTES % (AUTO) 23.8 %; MEAN CORPUSCULAR HEMOGLOBIN 29.1 pg (27.0-31.0); MEAN CORPUSCULAR HGB CONC 33.7 g/dL (32.0-36.0); MEAN CORPUSCULAR VOLUME 86.4 fL (81.0-99.0); MEAN PLATELET VOLUME 9.6 fL (7.9-10.8); MONOCYTES # (AUTO) 0.4 10^3/uL (0.0-1.0); MONOCYTES % (AUTO) 4.7 %; NEUTROPHILS # (AUTO) 6.1 10^3/uL (1.5-6.6); NEUTROPHILS % (AUTO) 69.6 %; PLT - PLATELET COUNT 250 10^3/uL (130-450); RED BLOOD COUNT 5.15 10^6/uL (4.20-5.40); RED CELL DISTRIBUTION WIDTH 12.5 % (12.0-15.0); WHITE BLOOD COUNT 8.7 x10^3/uL (4.8-10.8)
[2022-12-01] MEDS ORDERED: ONDANSETRON 4 MG/2 ML VIAL IVP STA (18:28)
[2022-12-01 18:40] LABS: ALBUMIN 4.8 g/dL (3.2-5.5); ALBUMIN/GLOBULIN RATIO 1.7 (1.0-2.2); BILIRUBIN,TOTAL 0.8 mg/dL (0.2-1.0); CALCIUM 10.1 mg/dL (8.5-10.3); CREATININE 0.7 mg/dL (0.6-1.3); TOTAL PROTEIN 7.6 g/dL (6.4-8.9)
[2022-12-01] MEDS ORDERED: DIATR MEGLU/DIATRIZOATE SODIUM 120 ML BOTTLE ONE (18:41)
--- NOTE | 2022-12-01 18:47 | ED Physician Documentation ---
PD HPI ABD PAIN - Stated complaint Stated Complaint: ABD PX/N/V - Chief complaint Chief Complaint: Abd Pain - History obtained from History obtained from: Patient - Additional information Additional information: 27-year-old biological female now male with history of cholecystectomy. About 10 years ago had a small bowel obstruction with microperforation treated nonoperatively. Has been constipated lately and has had 4 days of pain. Today it progressed to urinary retention. She went to the walk-in clinic where she did have bowel movement and was able to pee but there was a concern given the alyx amaya's history and was sent here for further evaluation. 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 : None HEENT: Chronic vision loss, Other Psych: Schizophrenia, Depression, Anxiety, Panic attacks Musculoskeletal: None Derm: None - Past Surgical History Past Surgical History: No General: Cholecystectomy, Colonoscopy HEENT: Myringotomy (tubes), Other - Present Medications Home Medications: Ambulatory Orders Medication Instructions Recorded Confirmed hydrOXYzine HCL [Hydroxyzine HCl] 25 mg PO QID PRN 03/05/20 12/01/22 Atomoxetine HCl [Strattera] 40 mg PO DAILY 10/23/20 12/01/22 Sertraline [Zoloft] 100 mg PO BID 10/23/20 12/01/22 Sucralfate [Carafate] 1 tab PO QID PRN 10/23/20 12/01/22 Testosterone [Androderm] 1 each TD DAILY 02/18/22 12/01/22 Nitrofurantoin [Macrobid] 1 cap PO BID #10 cap 12/01/22 - Allergies Allergies/Adverse Reactions: Allergies Allergy/AdvReac Type Severity Reaction Status Date / Time lidocaine AdvReac Anxiety Verified 12/01/22 18:02 caterpillars Allergy Unknown Uncoded 12/01/22 18:02 dairy products AdvReac bloating, Uncoded 12/01/22 18:02 constipation enriched flour products AdvReac Nausea Uncoded 12/01/22 18:02 sedatives AdvReac "cause Uncoded 12/01/22 18:02 panic" - Social History Does the pt smoke?: No Smoking Status: Never smoker Does the pt drink ETOH?: No Does the pt have substance abuse?: No - Immunizations Immunizations are current?: Yes - POLST Patient has POLST: No PD ED PE NORMAL - Vitals Vital signs reviewed: Yes - General General: Alert and oriented X 3, No acute distress - Cardiac Cardiac: RRR, No murmur - Respiratory Respiratory: No respiratory distress, Clear bilaterally - Abdomen Abdomen: Normal bowel sounds, Soft, Other (Mild diffuse tenderness without surgical signs) - Neuro Neuro: Alert and oriented X 3, Normal speech Results - Vitals Vitals: Vital Signs - 24 hr 12/01/22 12/01/22 17:59 20:14 Temperature 37.2 C Heart Rate 81 80 Respiratory 16 16 Rate Blood Pressure 134/92 H 132/92 H O2 Saturation 98 98 Oxygen O2 Source Room air - Labs Labs: Laboratory Tests 12/01/22 12/01/22 12/01/22 18:22 18:22 18:47 WBC 8.7 RBC 5.15 Hgb 15.0 Hct 44.5 MCV 86.4 MCH 29.1 MCHC 33.7 RDW 12.5 Plt Count 250 MPV 9.6 Neut # (Auto) 6.1 Lymph # (Auto) 2.1 [place] # (Auto) 0.4 Eos # (Auto) 0.1 Baso # (Auto) 0.0 Absolute Nucleated RBC 0.00 Nucleated RBC % 0.0 Sodium 137 Potassium 4.0 Chloride 102 Carbon Dioxide 27 Anion Gap 8.0 BUN 10 Creatinine 0.7 Estimated GFR (MDRD) 101 Glucose 87 Calcium 10.1 Total Bilirubin 0.8 AST 17 ALT 16 Alkaline Phosphatase 49 Total Protein 7.6 Albumin 4.8 Globulin 2.8 Albumin/Globulin Ratio 1.7 Lipase 13 Urine Color YELLOW Urine Clarity CLEAR Urine pH 5.5 Ur Specific [place] >=1.030 H Urine Protein NEGATIVE Urine Glucose (UA) NEGATIVE Urine Ketones TRACE Urine Occult Blood NEGATIVE Urine Nitrite POSITIVE H Urine Bilirubin NEGATIVE Urine Urobilinogen 0.2 (NORMAL) Ur Leukocyte Esterase NEGATIVE Urine RBC 0-5 Urine WBC 6-10 H Ur Squamous Epith Cells FEW Squamous Urine Bacteria Moderate H Urine Mucus Moderate Strands Ur Microscopic Review INDICATED Urine Culture Comments INDICATED Urine HCG, Qual NEGATIVE Procedures - General procedure General procedure: Patient was difficult for IV access and I personally placed a long 22-gauge IV in the right cephalic vein after ChloraPrep using real-time ultrasound guidance which flushed and marianne well. PD Medical Decision Making - ED course ED course: 27-year-old with abdominal pain, extensive history as above but fairly benign exam. Had constipation but already resolved prior to arrival. Diagnostic testing benign/normal with the exception of evidence of cystitis on UTI treated with Macrobid. Departure - Departure Disposition: 01 Home, Self Care Clinical Impression: Abdominal pain Condition: Good Record reviewed to determine appropriate education?: Yes Instructions: Abdominal Pain Prescriptions: Nitrofurantoin [Macrobid] 1 cap PO BID #10 cap Comments: Labs are normal except evidence of mild UTI. CT showing kind of chronic thickening in your ileum and colon but stable from prior studies. No evidence of perforation or obstruction. Call your doctor to arrange a follow-up appointment, make the next available appointment. In the interim, return anytime if worse or if new symptoms develop. We will culture your urine, the results should be done in 48-72 hours. If an antibiotic change is necessary we will call you. Return if worse in the meantim e, especially if you develop increasing flank pain, fevers, or cannot keep down the medication. Forms: PCP List Discharge Date/Time: 12/01/22 21:44
[2022-12-01 19:01] LABS: BILIRUBIN,URINE NEGATIVE (NEGATIVE); GLUCOSE, URINE (UA) NEGATIVE (NEGATIVE); KETONES,URINE (UA) TRACE mg/dL (NEGATIVE); LEUKOCYTE ESTERASE, URINE NEGATIVE (NEGATIVE); NITRITE,URINE POSITIVE (NEGATIVE); OCCULT BLOOD,URINE NEGATIVE (NEGATIVE); PH,URINE 5.5 PH (5.0-7.5); PROTEIN,URINE NEGATIVE (NEGATIVE); UROBILINOGEN,URINE 0.2 (NORMAL) E.U./dL (NORMAL)
[2022-12-01 19:05] LABS: CLARITY,URINE CLEAR (CLEAR); HCG UR QUAL NEGATIVE
[2022-12-01 19:10] LABS: BACTERIA,URINE Moderate /HPF (None Seen); MUCUS,URINE Moderate Strands; RBC,URINE 0-5 /HPF (0-5); SQUAMOUS EPITHELIAL CELL,UR FEW Squamous (<= Few)
[2022-12-01 20:14] VITALS: BP 132/92
--- NOTE | 2022-12-01 21:11 | CT Report ---
PROCEDURE: ABDOMEN/PELVIS W INDICATIONS: IV and PO re abd pain CONTRAST: 100mL Omni 300 TECHNIQUE: After the administration of oral and intravenous contrast, 5 mm thick sections acquired from the diap hragms to the symphysis. 5 mm thick coronal and sagittal reformats were acquired. For radiation dos e reduction, the following was used: automated exposure control, adjustment of mA and/or kV accordin g to patient size. COMPARISON: CT abdomen/pelvis 02/01/2020 FINDINGS: Image quality: Excellent. Lung bases and heart: Unremarkable. Liver: No solid mass. Gallbladder and biliary tree: Surgically absent. No biliary dilation, accounting for post-cholecystec ajit state. Spleen: Spleen is mildly enlarged, measuring up to 14.3 cm in anteroposterior dimension.. Pancreas: No pancreatic ductal dilation. Adrenals: No adrenal nodule. Kidneys and ureters: No hydronephrosis. No renal cystic lesion which requires follow up. No solid mas s. Bowel and peritoneum: Follow-up thickening is again seen within the terminal ileum and most likely as cending and transverse colon, which appears similar when compared to the prior exam. There is promine nt epidural fat at the ascending colon. Small bowel loops are unremarkable. No ascites or pneumoperit oneum. Lymph nodes: No central or retroperitoneal adenopathy. Right lower quadrant lymph nodes do not appear significant changed when compared to the CT from 02/01/2020. Vessels: No infrarenal aortic aneurysm. PELVIS Reproductive organs: Unremarkable. Bladder: No abnormal wall thickening, accounting for underdistension. Pelvic lymph nodes: No pelvic adenopathy by size criteria. Bones: No aggressive osseous abnormality. Other: No significant ventral or inguinal hernia. IMPRESSION: 1.Bowel thickening in seen at the terminal ileum and ascending colon, which appears similar when comp ared to the CT from 02/01/2020 and may be secondary to a chronic or recurrent enterocolitis. No acute fat stranding. 2.Stable right lower quadrant mesenteric adenitis. 3.Normal appendix. Reviewed by: Kameron Arellano MD on 12/01/2022 9:10 PM PDT Approved by: Kameron Arellano MD on 12/01/2022 9:10 PM PDT Station ID: [id number]
[2022-12-01] MEDS ORDERED: NITROFURANTOIN MACRO 100 MG CAPSULE PO STA (21:19)
[2022-12-01] MEDS ORDERED: iohexoL-300 100 ML VIAL IVP ONE (21:21)
[2022-12-01] MEDS ORDERED: DIATRIZOATE MEGLU/DIATRIZO SOD 30 ML BOTTLE PO ONE (21:22)
== END 2022-12-01 21:44 | disposition home or self-care (01) ==
LOC: EDUNIT# → ED 17:46
DX: R10.9 Unspecified abdominal pain (principal)
CPT/HCPCS: 36415; 74177; 80053; 81001; 81025; 83690; 85025; 87086; 87181; 96374; 99283; 99284; A9270; Q9963; Q9967; 81003

== ENCOUNTER 2023-05-13 11:00 | Outpatient (CLI) | payer MEDICAID ==
--- NOTE | 2023-05-13 19:25 | XRAY Report ---
PROCEDURE: Knee 3V RT INDICATIONS: RIGHT KNEE PAIN TECHNIQUE: 3 views of the knee was obtained. COMPARISON: None FINDINGS: Bones: No fractures or dislocations. No suspicious bony lesions. Soft tissues: No knee joint effusion. No suspicious soft tissue calcifications or masses. IMPRESSION: Unremarkable knee radiographs Reviewed by: Abe Dixon MD on 05/13/2023 6:24 PM [place] Approved by: Abe Dixon MD on 05/13/2023 6:24 PM [facility] Station ID: [id number]
== END 2023-05-13 11:15 | disposition home or self-care (01) ==
LOC: DI.N 11:00
PROVIDERS: ATTEND Physician Assistant Medical
DX: M25.561 Pain in right knee (principal)

== ENCOUNTER 2023-05-16 10:11 | Emergency (ER) | payer MEDICAID ==
[2023-05-16 10:36] VITALS: O2SAT 100
[2023-05-16 10:59] LABS: BILIRUBIN,URINE NEGATIVE (NEGATIVE); GLUCOSE, URINE (UA) NEGATIVE (NEGATIVE); KETONES,URINE (UA) NEGATIVE (NEGATIVE); LEUKOCYTE ESTERASE, URINE MODERATE (NEGATIVE); NITRITE,URINE POSITIVE (NEGATIVE); OCCULT BLOOD,URINE LARGE (NEGATIVE); PROTEIN,URINE TRACE mg/dL (NEGATIVE); UROBILINOGEN,URINE 0.2 (NORMAL) E.U./dL (NORMAL)
[2023-05-16 11:01] LABS: CLARITY,URINE SL. CLOUDY (CLEAR)
[2023-05-16 11:03] LABS: HCG UR QUAL NEGATIVE
[2023-05-16 11:19] LABS: BACTERIA,URINE Rare /HPF (None Seen); RBC,URINE TNTC /HPF (0-5); SQUAMOUS EPITHELIAL CELL,UR FEW Squamous (<= Few); WBC,URINE >25 /HPF (0-5)
--- NOTE | 2023-05-16 11:21 | ED Physician Documentation ---
PD HPI FEMALE - Stated complaint Stated Complaint: FEMALE - Chief complaint Chief Complaint: UTI - History obtained from History obtained from: Patient - Additional information Additional information: Patient is a 27-year-old female to male transgender presenting for evaluation of dysuria and frequency for the past 2 days. Patient reports that on Wednesday that they and their partner were using a new strap on toy. Patient reports that it was uncomfortable and so they stopped using it. It was not used on anyone else prior to being used on the patient. Since then has had dysuria and frequency. Reported noticing a little bit of blood this morning as well as having some vaginal spotting that was light pink. Normally receives testosterone pellets so has not had a period in several years. No fever, chest pain, abdominal pain, vomiting, diarrhea.Denies vaginal discharge or concerns for sexually transmitted infections. 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 : None HEENT: Chronic vision loss, Other Psych: Schizophrenia, Depression, Anxiety, Panic attacks Musculoskeletal: None Derm: None - Past Surgical History Past Surgical History: No General: Cholecystectomy, Colonoscopy HEENT: Myringotomy (tubes), Other - Present Medications Home Medications: Ambulatory Orders Medication Instructions Recorded Confirmed hydrOXYzine HCL [Hydroxyzine HCl] 25 mg PO QID PRN 03/05/20 12/01/22 Atomoxetine HCl [Strattera] 40 mg PO DAILY 10/23/20 12/01/22 Sertraline [Zoloft] 100 mg PO BID 10/23/20 12/01/22 Sucralfate [Carafate] 1 tab PO QID PRN 10/23/20 12/01/22 Testosterone [Androderm] 1 each TD DAILY 02/18/22 12/01/22 Nitrofurantoin [Macrobid] 1 cap PO BID #10 cap 12/01/22 Nitrofurantoin [Macrobid] 1 cap PO BID #10 cap 05/16/23 Phenazopyridine HCl [Pyridium] 200 mg PO TID PRN #6 tablet 05/16/23 - Allergies Allergies/Adverse Reactions: Allergies Allergy/AdvReac Type Severity Reaction Status Date / Time lidocaine AdvReac Anxiety Verified 05/16/23 10:25 caterpillars Allergy Unknown Uncoded 05/16/23 10:25 dairy products AdvReac bloating, Uncoded 05/16/23 10:25 constipation enriched flour products AdvReac Nausea Uncoded 05/16/23 10:25 sedatives AdvReac "cause Uncoded 05/16/23 10:25 panic" - Social History Does the pt smoke?: No Smoking Status: Never smoker Does the pt drink ETOH?: No Does the pt have substance abuse?: No - Immunizations Immunizations are current?: Yes - POLST Patient has POLST: No PD ED PE NORMAL - General General: Alert and oriented X 3, No acute distress, Well developed/nourished - HEENT HEENT: Atraumatic, Moist mucous membranes, Pharynx benign - Neck Neck: Supple, no meningeal sign - Cardiac Cardiac: RRR, Strong equal pulses - Respiratory Respiratory: No respiratory distress, Clear bilaterally - Abdomen Abdomen: Normal bowel sounds, Soft, Non tender, Non distended - Derm Derm: Warm and dry - Neuro Neuro: Normal speech Results - Vitals Vitals: Vital Signs - 24 hr 05/16/23 05/16/23 10:20 11:24 Temperature 36.7 C Heart Rate 80 76 Respiratory 18 16 Rate Blood Pressure 134/86 H 128/80 O2 Saturation 100 100 Oxygen O2 Source Room air - Labs Labs: Laboratory Tests 05/16/23 05/16/23 10:45 10:45 Urine Color YELLOW Urine Clarity SL. CLOUDY Urine pH 6.0 Ur Specific [place] >=1.030 H Urine Protein TRACE Urine Glucose (UA) NEGATIVE Urine Ketones NEGATIVE Urine Occult Blood LARGE H Urine Nitrite POSITIVE H Urine Bilirubin NEGATIVE Urine Urobilinogen 0.2 (NORMAL) Ur Leukocyte Esterase MODERATE H Urine RBC TNTC H Urine WBC >25 H Ur Squamous Epith Cells FEW Squamous Urine Bacteria Rare Ur Microscopic Review INDICATED Urine Culture Comments INDICATED Urine HCG, Qual NEGATIVE PD Medical Decision Making - ED course Complexity details: reviewed results, d/w patient ED course: Patient presenting for evaluation of 2 days of frequency and dysuria after using a new strap on sex toy. Abdominal exam is benign and their vital signs are stable. Urinalysis is suggestive of an infection. test is negative. Discussed plan for treatment with an antibiotic which patient is agreeable to. Pelvic exam deferred at this time as patient reports bleeding is only spotting and no discharge. No tenderness noted on abdominal exam. Patient counseled on concerning symptoms to return for. Departure - Departure Disposition: 01 Home, Self Care Clinical Impression: UTI (urinary tract infection) Condition: Stable Instructions: ED UTI Cystitis Female Prescriptions: Nitrofurantoin [Macrobid] 1 cap PO BID #10 cap Phenazopyridine HCl [Pyridium] 200 mg PO TID PRN #6 tablet PRN Reason: dysuria Comments: Your testing today shows that you have a urine infection. I have sent a prescription for an antibiotic as well as medication to help with the burning to [facility] in [place]. Please complete the course of the antibiotics as directed.We have also sent the urine for a culture and we will notify you if you need an alternative antibiotic. Return to the emergency department with any worsening symptoms such as increased pain, heavier bleeding or any other concerns. Discharge Date/Time: 05/16/23 11:25
[2023-05-16 11:32] VITALS: BP 128/80
== END 2023-05-16 11:25 | disposition home or self-care (01) ==
LOC: ED 10:11
DX: N39.0 Urinary tract infection, site not specified (principal)
CPT/HCPCS: 81001; 81003; 81025; 87086; 87181; 99283; 99284

== ENCOUNTER 2023-05-27 10:29 | Outpatient (CLI) | payer MEDICAID ==
[2023-05-27 11:53] LABS: BASOPHILS % (AUTO) 0.4 %; EOSINOPHILS # (AUTO) 0.2 10^3/uL (0.0-0.7); EOSINOPHILS % (AUTO) 1.9 %; HGB - HEMOGLOBIN 14.6 g/dL (12.0-16.0); LYMPHOCYTES # (AUTO) 2.5 10^3/uL (1.5-3.5); LYMPHOCYTES % (AUTO) 26.9 %; MEAN CORPUSCULAR HEMOGLOBIN 29.5 pg (27.0-31.0); MEAN CORPUSCULAR HGB CONC 33.2 g/dL (32.0-36.0); MEAN CORPUSCULAR VOLUME 88.9 fL (81.0-99.0); MEAN PLATELET VOLUME 9.9 fL (7.9-10.8); MONOCYTES # (AUTO) 0.5 10^3/uL (0.0-1.0); MONOCYTES % (AUTO) 5.2 %; NEUTROPHILS % (AUTO) 65.2 %; PLT - PLATELET COUNT 263 10^3/uL (130-450); RED BLOOD COUNT 4.95 10^6/uL (4.20-5.40); RED CELL DISTRIBUTION WIDTH 12.9 % (12.0-15.0); WHITE BLOOD COUNT 9.2 x10^3/uL (4.8-10.8)
[2023-05-28 03:11] LABS: HBsAG SCREEN Negative (Negative); HCV AB Non Reactive (Non Reactive); HEPATITIS B CORE IGM AB Negative (Negative)
[2023-05-29 16:08] LABS: FREE TESTOSTERONE(DIRECT) 31.2 pg/mL (0.0-4.2)
== END 2023-05-27 10:30 | disposition home or self-care (01) ==
LOC: LAB.N 10:29
PROVIDERS: ATTEND Urology
DX: F64.9 Gender identity disorder, unspecified (principal)
CPT/HCPCS: 36415; 80074; 84402; 84403; 85025

== ENCOUNTER 2023-06-01 11:30 | Emergency (ER) | payer MEDICAID ==
[2023-06-01 11:55] VITALS: BP 140/78; O2SAT 99
--- NOTE | 2023-06-01 12:28 | XRAY Report ---
PROCEDURE: Knee 4+V RT INDICATIONS: pain TECHNIQUE: 4 views of the knee(s) were acquired. COMPARISON: 05/13/2023 FINDINGS: Bones: No fractures or dislocations. No suspicious bony lesions. Soft tissues: Small knee joint effusion. No suspicious soft tissue calcifications or masses. IMPRESSION: No acute bony abnormality. Small knee joint effusion. Reviewed by: Antione Esquivel MD on 06/01/2023 12:27 PM PST Approved by: Antione Esquivel MD on 06/01/2023 12:27 PM PST Station ID: [id number]
--- NOTE | 2023-06-01 13:47 | ED Physician Documentation ---
PD HPI LOWER EXT INJURY - Stated complaint Stated Complaint: RT KNEE PX,WEAKNESS,SWELLING - Chief complaint Chief Complaint: Ext Problem - Additional information Additional information: 27-year-old female transitioning to male presents to the emergency department for right knee pain. He states that he has had no injuries it has been hurting for the last 3 to 4 months but today he feels like is to the point where he is not able to handle the pain anymore he has been using ibuprofen at home for pain. Pain is mostly with ambulation to the anterior portion of the knee just inferior to the kneecap. No fevers or chills. 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 HEENT: Chronic vision loss, Other Psych: Depression, Anxiety, Panic attacks Musculoskeletal: None Derm: None - Past Surgical History Past Surgical History: Yes General: Cholecystectomy, Colonoscopy HEENT: Myringotomy (tubes), Other - Present Medications Home Medications: Ambulatory Orders Medication Instructions Recorded Confirmed hydrOXYzine HCL [Hydroxyzine HCl] 25 mg PO QID PRN 03/05/20 12/01/22 Atomoxetine HCl [Strattera] 40 mg PO DAILY 10/23/20 12/01/22 Sertraline [Zoloft] 100 mg PO BID 10/23/20 12/01/22 Sucralfate [Carafate] 1 tab PO QID PRN 10/23/20 12/01/22 Testosterone [Androderm] 1 each TD DAILY 02/18/22 12/01/22 Nitrofurantoin [Macrobid] 1 cap PO BID #10 cap 12/01/22 Nitrofurantoin [Macrobid] 1 cap PO BID #10 cap 05/16/23 Phenazopyridine HCl [Pyridium] 200 mg PO TID PRN #6 tablet 05/16/23 - Allergies Allergies/Adverse Reactions: Allergies Allergy/AdvReac Type Severity Reaction Status Date / Time lidocaine AdvReac Anxiety Verified 06/01/23 11:46 caterpillars Allergy Unknown Uncoded 05/16/23 10:25 dairy products AdvReac bloating, Uncoded 05/16/23 10:25 constipation enriched flour products AdvReac Nausea Uncoded 05/16/23 10:25 sedatives AdvReac "cause Uncoded 05/16/23 10:25 panic" - Social History Does the pt smoke?: No Smoking Status: Never smoker Does the pt drink ETOH?: No Does the pt have substance abuse?: Yes Substance Use and Type: Marijuana - Immunizations Immunizations are current?: Yes - POLST Patient has POLST: No PD ED PE NORMAL - Vitals Vital signs reviewed: Yes - General General: Alert and oriented X 3, No acute distress, Well developed/nourished - Derm Derm: Normal color, Warm and dry (RLE:), No rash - Extremities Extremities: No edema, No calf tenderness / cord - Psych Psych: Normal mood - Free text exam Free text exam: Right lower extremity: No pain to lateral medial joint space. No fluid wave, full range of motion to the right knee no joint instability. Results - Vitals Vitals: Vital Signs - 24 hr 06/01/23 11:46 Temperature 36.2 C L Heart Rate 69 Respiratory 18 Rate Blood Pressure 140/78 H O2 Saturation 99 Oxygen O2 Source Room air PD Medical Decision Making - ED course ED course: 27-year-old female to male patient presents emergency department for atraumatic ongoing right knee pain. X-rays reveal mild knee effusion no fractures d islocations or other acute abnormalities or findings. I considered gout but patient does not have severe tenderness with palpation or range of motion does not appear to have pain out of proportion. Could be related to arthritis or osteoarthritis as it does get worse throughout the day patient is on his feet frequently throughout the day working at [employer]. He was given an Rambo wrap to help with his pain and discomfort and told that this does appear to be working to buy a sleeve for his right knee to help with the knee effusion and swelling. He was told to follow-up with primary care provider for further evaluation he was also given referral to an orthopedic surgeon for second opinion. He said that he recently got a referral for physical therapy that he is going to start actively pursuing this week. Safe for discharge at this time able to ambulate without difficulty. Departure - Departure Disposition: 01 Home, Self Care Clinical Impression: Effusion, right knee Condition: Good Instructions: ED Effusion Knee Follow-Up: Derick Negro MD [Provider Admit Priv/Credential] - Comments: Thank you for trusting us with your care. We have completed x-rays which does reveal a very small knee effusion. Does not reveal any fractures or dislocations. As we discussed I recommend starting with something simple like an Rambo wrap if you find this to be helpful then moving up to a compression sleeve to the knee. Please follow-up with your primary care provider for further evaluation of your ongoing right knee pain follow-up with physical therapy and I have placed a referral to a local orthopedic provider for an additional opinion about your ongoing right knee pain. Elevate frequently. Alternate between Tylenol and ibuprofen alternate between 20 minutes of ice and 20 minutes of heat for pain and discomfort. Please come back to the emergency department for starting to develop any fevers or chills, worsening right knee swelling, if your knee becomes hot to the touch, or any new redness. Forms: PCP List Discharge Date/Time: 06/01/23 14:01
[2023-06-01] MEDS: ACETAMINOPHEN 325 MG TABLET PO STA (13:52)
== END 2023-06-01 14:01 | disposition home or self-care (01) ==
LOC: ED 11:30
DX: M25.461 Effusion, right knee (principal); I10 Essential (primary) hypertension; J45.909 Unspecified asthma, uncomplicated; Z86.010 Personal history of colon polyps; Z79.899 Other long term (current) drug therapy
CPT/HCPCS: 73564; 99283; A9270

== ENCOUNTER 2023-06-15 08:00 | Outpatient (CLI) | payer MEDICAID ==
--- NOTE | 2023-06-15 15:21 | XRAY Report ---
PROCEDURE: Knee 2 View RT INDICATIONS: RIGHT KNEE PAIN, BILAT AP AND RIGHT PA TUNNEL VIEWS TECHNIQUE: 2 views of the knee(s) were acquired. COMPARISON: 06/01/2023 FINDINGS: Bones: No acute fracture or dislocation. No high-grade degenerative changes. Partially visualized lef t knee is also unremarkable. Soft tissues: No suspicious calcifications. Lateral view not obtained. IMPRESSION: No acute radiographic abnormality. If there is high concern for further derangement, consider MRI regina luation. Lateral view not included today. Reviewed by: Colin Leal MD on 06/15/2023 3:20 PM PST Approved by: Colin Leal MD on 06/15/2023 3:20 PM PST Station ID: [id number]
== END 2023-06-15 23:59 | disposition home or self-care (01) ==
LOC: DI.WOS 08:00
PROVIDERS: ATTEND Physician Assistant Surgical
DX: M25.561 Pain in right knee (principal)

== ENCOUNTER 2023-08-12 15:06 | Outpatient (CLI) | payer MEDICAID ==
--- NOTE | 2023-08-12 21:14 | MRI Report ---
Knee RT WO CLINICAL INFORMATION: 27 years of age, Female, INTERNAL DERANGEMENT OF R KNEE. COMPARISON: Right knee radiograph on 06/15/2023 Technique: Multisequence, multiplanar MRI of the right knee was performed without intravenous contras t. FINDINGS: Menisci: The medial and lateral menisci, including the roots, are intact. Cruciate ligaments: The anterior and posterior cruciate ligaments are intact. MCL/LCL: The MCL is unremarkable. The biceps femoris tendon is unremarkable. The fibular collateral ligament is unremarkable. The iliotibial band is intact. The popliteus muscle and tendon also appear intact. Extensor mechanism: The quadricep tendon is unremarkable. The patella tendon is unremarkable. Patellofemoral joint: Alignment within the patellofemoral joint is normal. The patellofemoral ligame nts are intact. Cartilage and bone marrow signal within the patella and femoral trochlea are normal. Cartilage and bone: The cartilage of the medial and lateral compartment are well maintained. No marro w edema. No acute fracture. Miscellaneous: No significant joint effusion. No popliteal cyst. No intra-articular bodies are ident ified. Normal muscle signal intensity and morphology. No vascular anomaly. IMPRESSION: Unremarkable right knee MRI. Reviewed by: Alicia Anaya MD on 08/12/2023 9:13 PM PDT Approved by: Alicia Anaya MD on 08/12/2023 9:13 PM PDT Station ID: [id number]
== END 2023-08-12 15:07 | disposition home or self-care (01) ==
LOC: DI 15:06
PROVIDERS: ATTEND Physician Assistant Surgical
DX: M23.8X1 Other internal derangements of right knee (principal)

== ENCOUNTER 2023-09-12 12:19 | Emergency (ER) | payer MEDICAID ==
[2023-09-12 12:43] VITALS: BP 140/86; O2SAT 99
--- NOTE | 2023-09-12 13:08 | ED Physician Documentation ---
PD HPI SKIN - Stated complaint Stated Complaint: PAIN/REDNESS FROM INJECTION - Chief complaint Chief Complaint: Wound - History obtained from History obtained from: Patient - History of Present Illness Timing - onset: How many days ago (few days of increasing pain and redness at site of testosterone pellet insertion on 08/25 (2 weeks ago). Gets these pellets inserted every 3 months and has not had problems/reactions previously. This one felt more tender after the procedure and was not closing/healing as usual. Now redness/swelling.) Timing - duration: Days Timing - details: Gradual onset, Still present Location: Other (left buttock) Quality / character: Painful, Discolored (some redness), Swelling Associated symptoms: No: Fever, Myalgias Recently seen: Clinic (had the procedure on 08/25 in counselor/art therapist office as usual. Seen at [facility] yesterday for this and pt states they saw one of the pellets just peaking out hole. 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 - Past Surgical History Past Surgical History: Yes General: Cholecystectomy, Colonoscopy HEENT: Myringotomy (tubes), Other - Present Medications Home Medications: Ambulatory Orders Medication Instructions Recorded Confirmed hydrOXYzine HCL [Hydroxyzine HCl] 25 mg PO QID PRN 03/05/20 12/01/22 Atomoxetine HCl [Strattera] 40 mg PO DAILY 10/23/20 12/01/22 Sertraline [Zoloft] 100 mg PO BID 10/23/20 12/01/22 Sucralfate [Carafate] 1 tab PO QID PRN 10/23/20 12/01/22 Testosterone [Androderm] 1 each TD DAILY 02/18/22 12/01/22 Nitrofurantoin [Macrobid] 1 cap PO BID #10 cap 12/01/22 Nitrofurantoin [Macrobid] 1 cap PO BID #10 cap 05/16/23 Phenazopyridine HCl [Pyridium] 200 mg PO TID PRN #6 tablet 05/16/23 Doxycycline Hyclate 100 mg PO BID 7 Days #14 cap 09/12/23 - Allergies Allergies/Adverse Reactions: Allergies Allergy/AdvReac Type Severity Reaction Status Date / Time lidocaine AdvReac Anxiety Verified 09/12/23 12:30 caterpillars Allergy Unknown Uncoded 05/16/23 10:25 dairy products AdvReac bloating, Uncoded 05/16/23 10:25 constipation enriched flour products AdvReac Nausea Uncoded 05/16/23 10:25 sedatives AdvReac "cause Uncoded 05/16/23 10:25 panic" - Social History Does the pt smoke?: No Smoking Status: Never smoker Does the pt drink ETOH?: No Does the pt have substance abuse?: No - Immunizations Immunizations are current?: Yes - POLST Patient has POLST: No Results - Vitals Vitals: Vital Signs - 24 hr 09/12/23 12:30 Temperature 35.9 C L Heart Rate 81 Respiratory 18 Rate Blood Pressure 140/86 H O2 Saturation 99 Oxygen O2 Source Room air - Labs Labs: Microbiology 09/12/23 13:37 Wound Culture - Preliminary Buttock - Left PD Medical Decision Making - ED course Complexity details: considered differential (with FB just under skin and some drainage/tenderness/mild red, wound seem wound infection and best clearance is remove FB as would be plug and nidus for the germs. Pt in agreement. ), d/w patient ED course: Pt gets testosterone pellets under skin every 3 months and says there are 6 of them each treatment, so the one that is protruding from insertion site would be loss of just portion of the testosterone effect. The others may still be an issue for retention of infection, but I would try removing just the one trying to expel as likely causing the most disruption of the incision healing. I'm not sure why the [facility] pushed it back in and covered with steristrip and no abx. Pt not sure either. Departure - Departure Disposition: 01 Home, Self Care Clinical Impression: Wound infection Condition: Stable Record reviewed to determine appropriate education?: Yes Instructions: ED Staph Infec Abx Tx Only Follow-Up: Mita Goff PA-C [Primary Care Provider] - Prescriptions: Doxycycline Hyclate 100 mg PO BID 7 Days #14 cap Comments: The 1 pellet that was wanting to come out did come out fully. This seemed to best and after the pellet is out, some purulent material did drain from behind it. It does seem like a wound infection and actually having that 1 pellet out his best. Warm compresses or soaks to the area to promote some blood flow to the area to fight off infection and see if that allows promotion of more drainage from the site. I did do a culture of some of the purulent material. This will result in a couple of days. Will call if we need to change antibiotic choice based on it. Doxycycline antibiotic twice daily with food for the next 5 to 6 days. It will be sore in the area so Tylenol and/or ibuprofen as needed for pains. I do not feel that there is more fluid or purulence trapped underneath so I do not feel it needs to be opened or further drained. I sent your prescription to your preferred pharmacy. Follow-up with your specialist. Call to update them on the happenings and the loss of the one pellet. Forms: PCP List Discharge Date/Time: 09/12/23 14:14
[2023-09-12] MEDS: DOXYCYCLINE 100 MG TABLET PO STA (14:04)
[2023-09-12] MEDS: ACETAMINOPHEN 500 MG TABLET PO STA (14:04)
== END 2023-09-12 14:14 | disposition home or self-care (01) ==
LOC: ED 12:19
DX: T81.41XA Infection following a procedure, superficial incisional surgical site, initial encounter (principal); L08.9 Local infection of the skin and subcutaneous tissue, unspecified; I10 Essential (primary) hypertension
CPT/HCPCS: 87070; 87205; 99283; A9270